=== PATIENT | female | born 1955 | race Caucasian/White ===

== ENCOUNTER → 2017-03-27 | Outpatient (CLI) | payer OTHER ==
[~2017-03-27] MED LIST: FLUO10CA13 PO; VARE0.5T PO
--- NOTE | 2017-03-27 14:58 | KCIC ---
INDICATION: Pain and swelling along with redness involving the thumb for 2 months. TECHNIQUE: 3 views of the right first digit including an AP view of the hand are submitted for review. No comparison is available. FINDINGS: There is soft tissue swelling involving the first digit. There may be mild erosive change in the tuft. No gross bone destruction or pathologic fracture is identified. There is no dislocation. There is no radiopaque foreign body. IMPRESSION: Questionable erosive change in the distal aspect of the distal phalanx of the first digit. Given provided history, osteomyelitis should be considered. Consider MRI or 3 phase bone scintigraphy if further workup is required. Electronically signed by: Marco Restrepo MD (03/27/2017 2:55 PM) [facility]
== END | disposition home or self-care (01) ==
LOC: KCIC 14:31
PROVIDERS: ATTEND Nurse Practitioner Family
DX: M79.644 Pain in right finger(s) (principal); M86.8X4 Other osteomyelitis, hand; M79.89 Other specified soft tissue disorders
CPT/HCPCS: 73140

== ENCOUNTER → 2017-04-06 | Outpatient (CLI) | payer OTHER ==
--- NOTE | 2017-04-06 11:26 | KCIC ---
MR of the right thumb with and without contrast HISTORY: Infection at the nailbed and distal thumb for 2 months. Mild soft tissue edema at the distal aspect of the first digit. Marrow edema with loss of fatty marrow within the terminal tuft and distal shaft of the distal phalanx of the first digit compatible with osteomyelitis in this clinical context. There is some loss of cortical definition compatible with some destruction as indicated also on the radiographs of March 27. There is mild soft tissue edema and fluid accumulation posterolateral to the first MP joint. No evidence of an organized or drainable fluid collection or abscess. No significant joint effusion. No evidence of tendon disruption or significant tendon sheath fluid. IMPRESSION: 1. Findings are compatible with osteomyelitis of the distal aspect of the distal first phalanx. 2. Mild disorganized soft tissue fluid adjacent to the first MP joint, of uncertain sterility. No evidence of an organized or drainable abscess. Electronically signed by: Tonny Joya MD (04/06/2017 11:23 AM) [facility]
== END | disposition home or self-care (01) ==
LOC: KCIC MRI 07:43
PROVIDERS: ATTEND Nurse Practitioner Gerontology
DX: M86.8X4 Other osteomyelitis, hand (principal); L08.89 Other specified local infections of the skin and subcutaneous tissue
CPT/HCPCS: 73218

== ENCOUNTER 2017-04-17 10:11 | Observation (INO) | payer OTHER ==
[2017-04-17] VITALS (11 sets, daily range): BP systolic 131–152; BP diastolic 71–81
[~2017-04-17] VITALS: Ht 165.1 cm; Wt 124.3 kg
[~2017-04-17 10:11] MED LIST changes: +BUPIVACAINE MPF 0.5% 30 ML VIAL. ONE; +CHOL10002 PO; +HYDR12.53 PO; +HYDROmorphone 2 MG/ML VIAL IV PRN; +IV RINGERS,LACTATED 1000ML 1,000 ML IV SCH; +LACT1CAP29 PO; +LIDOCAINE 1% 1 ML SYRINGE. ID PRN; +LIDOCAINE 1% 20 ML VIAL. ONE; +LIDOCAINE 2% PF Vial for OR 5 ML VIAL. ONE; +MORPHINE SULFATE 2 MG/ML DISP.SYRIN. IV PRN; +ONDANSETRON PF 4 MG/2 ML VIAL. IV PRN; +PROCHLORPERAZINE 10 MG/2 ML VIAL. IV PRN; +PROPOFOL 20 ML IV ONE; +fentaNYL PF VIAL 100 MCG/2 ML VIAL IV PRN; +fentaNYL PF VIAL 100 MCG/2 ML VIAL ONE
[2017-04-17] MEDS ORDERED: DEXAMETHASONE SOD PHOS 20 MG/5 ML VIAL. ONE (11:51)
[2017-04-17] MEDS ORDERED: ONDANSETRON PF 4 MG/2 ML VIAL. ONE (11:51)
[2017-04-17] MEDS ORDERED: SEVOFLURANE 16 TO 30 MINUTES. IH ONE (11:51)
[2017-04-17] MEDS ORDERED: fentaNYL PF VIAL 100 MCG/2 ML VIAL ONE ×2 (12:22→13:21)
[2017-04-17] MEDS: fentaNYL PF VIAL 100 MCG/2 ML VIAL IV PRN ×3 (12:25→13:23)
[2017-04-17] MEDS ORDERED: 0.9 % SODIUM CHLORIDE 10 ML DISP.SYRIN. IV PRN (12:30)
[2017-04-17] MEDS ORDERED: ONDANSETRON PF 4 MG/2 ML VIAL. IV PRN (12:30)
[2017-04-17] MEDS ORDERED: BISACODYL 10 MG SUPP.RECT. PR PRN (12:30)
[2017-04-17] MEDS ORDERED: MAGNESIUM HYDROXIDE 2,400 MG/30 ML ORAL.SUSP. PO PRN (12:30)
[2017-04-17] MEDS ORDERED: PROCHLORPERAZINE 10 MG/2 ML VIAL. IV PRN (12:30)
[2017-04-17] MEDS ORDERED: MORPHINE SULFATE 2 MG/ML DISP.SYRIN. IV PRN (12:30)
[2017-04-17] MEDS ORDERED: ZOLPIDEM 5 MG TABLET. PO PRN (12:30)
--- NOTE | 2017-04-17 12:30 | PDOC ---
BRIEF OPERATIVE NOTE Date: Apr 17, 2017 Pre-Op Diagnosis Possible R thumb osteo Post-Op Diagnosis same Procedure Performed Bone biopsy, I and D Surgeon Ever Helmet Coverer none Anesthesia Type: General Blood Loss 5ml Specimens Obtained swabs and bone for culture Findings no gross purulence Complications none STAN WESTON II, MD Apr 17, 2017 12:30
--- NOTE | 2017-04-17 12:52 | OP ---
DATE OF SURGERY: 04/17/2017 SURGEON: Shahid Weston M.D. WATER TRAINER: None. PREOPERATIVE DIAGNOSIS: Possible right thumb osteomyelitis. POSTOPERATIVE DIAGNOSIS: Possible right thumb osteomyelitis. PROCEDURES PERFORMED: 1. Bone biopsy, right distal phalanx of thumb. 2. Irrigation and debridement of right thumb. COMPLICATIONS: None. ESTIMATED BLOOD LOSS: 5 mL. TOURNIQUET TIME: 11 minutes. SPECIMENS: 1. Tissue cultures, subcutaneous tissues were obtained with swabs. 2. Rongeur was used to obtain deep tissue as well, which was sent off for culture. ANESTHESIA: General. REASON FOR PROCEDURE: The patient is a very pleasant 61-year-old female who had redness and swelling develop at her thumb that did respond to antibiotics over the past couple of weeks. An MRI had been obtained by an outside provider, which showed changes in the bone concerning with osteomyelitis. Given her overall clinical course and clinical presentation, I had a discussion of the risks, benefits and alternatives of the above procedure with her and she elected to proceed. For full further details, please see the outpatient consult note. DESCRIPTION OF PROCEDURE: The patient was greeted in the preoperative area by myself. Correct extremity was marked and verified. She was taken to the operative suite. Antibiotics were held. Once in the OR, she was transferred gently supine on the OR table and secured to the bed with all pressure points padded. She underwent successful induction of general anesthetic with an LMA. We applied a nonsterile tourniquet to her right upper arm and then proceeded to prep and drape the right upper extremity in our usual sterile fashion and conducted our standard preoperative timeout. The tourniquet was then insufflated to 250 mmHg and left in place for 11 minutes. I then made approximately a 1 cm incision over her radial side of her thumb and corresponding to the areas of change on the MRI. I used the hemostat to bluntly dissect down to the bone. I then took my culture swabs of the subcutaneous tissue and area adjacent to bone. I then used a rongeur to bite small piece of bone and periosteum to sent off for culture. Specimens were delivered from the operative field. We then irrigated out this incision with approximately 800 mL of sterile normal saline. I then closed skin with a single simple interrupted 3-0 nylon. She tolerated this procedure well. A Xeroform followed by sterile gauze, sterile cast padding and a sterile Benedict wrap were then applied to her right hand and thumb as well as wrist. She was awakened from anesthesia and transferred gently supine to the recovery room cart and taken to PACU in a stable and extubated condition. Postop plan is for activity as tolerated in the soft bulky splint at her thumb. We will admit her for observation status. I will ask Infectious Disease to come by to evaluate her as well. There were no changes around her paronychial region or eponychial region. Therefore, I did not feel that these needed surgical irrigation and debridement. The only changes around this area were faint erythema, which did look better today compared to when I had seen her in my clinic last week. This procedure was conducted under loupe magnification. SHAHID WESTON MD DR: JAMIE/david JOB#: [id number] / [id number] JEROMY
[2017-04-17] MEDS: PIPERACILLIN/TAZOBACTAM 3.375 GM in IV NORMAL SALINE 50ML 50 ML IV SCH ×3 (13:00→23:51)
[2017-04-17] MEDS: oxyCODONE IR 5 MG TABLET PO PRN ×3 (15:15→23:51)
[2017-04-17] MEDS: SENNOSIDES/DOCUSATE 8.6/50MG TABLET. PO SCH (20:08)
--- NOTE | 2017-04-18 01:01 | ACF ---
Admission Forms Criteria OSTEOMYELITIS Clinical Indications for Admission to Inpatient Care (Place 'X' for any and all applicable criteria) Admission is indicated by 1 or more of the following (1)(2)(3)(4)(5)(6): [ ] I. Significant systemic illness indicated by 2 or more of the following: [ ]a) Core (eg rectal) temperature greater or equal [id number](37.8C) in an adult [ ]b) Oral temperature[A] greater than or equal to 99.3 degrees F ( 37.4 degrees C) in an adult [ ]c) Heart rate greater than 90 beats per minute [ ]d) Respiratory rate greater than 20 breaths per minute or PaCO2 less than 32 mm Hg (4.3 kPa) [ ]e) White blood cell count > 12,000/mm3 (12 x109/L) or < 4000/mm3 ( 4 x109/L) or > 10% band cells [ ] II. Hemodynamic instability [ ] III. Severe pain requiring acute inpatient management [ ] IV. Bacteremia [ ] V. Altered Mental status that is severe or persistent [ ] . Limb-threatening infection [ ] VII. Suspected necrotizing soft tissue infection (e.g., gas in tissue) [ X] VIII.Surgical intervention required (e.g., bone or soft tissue debridement , removal of foreign body, or revascularization procedure) not performable in outpatient or emergency department level of care(7) [ ] IX. Appropriate monitoring and therapy (IV antibiotics) cannot be immediately arranged for home or outpatient setting [ ] X. Failure of outpatient treatment [ ] XI. High-risk comorbid condition present including 1 or more of the following: [ ]a) Poorly controlled diabetes (e.g., HbA1c greater than 10% (0.1)) [ ]b) Vascular insufficiency to affected area [ ]c) Cirrhosis [ ]d) Neutropenia [ ]e) Asplenia [ ]f) Immunosuppression (e.g., chronic systemic corticosteroid use) [ ]g) Symptomatic heart failure [ ] XII. Joint involvement (e.g., septic arthritis) suspected [ ] XIII.Vertebral osteomyelitis [ ] XIV. Skull-base osteomyelitis (e.g.,"malignant external otitis")[A](8)(9)(10 ) Extended stay beyond goal length of stay may be needed for(1)(3)(4)(5)(24)(25): [ ]a) Inadequate clinical response to antibiotics (e.g., continued fever, hypotension) [ ]b) Bacteremia [ ]c) Surgical intervention needed (e.g., beyond superficial debridement)(26) [ ]d) Vertebral osteomyelitis with spinal cord compression, abscess formation, or mechanical instability [ ]e) Antibiotic-resistant organism identified (e.g., methicillin-resistant Staphylococcal aureus) [ ]f) Severe concomitant cellulitis [ ]g) Acute metabolic disorder [ ]h) Unstable comorbidities (e.g., heart failure, renal insufficiency, immunosuppressed state)(28) [ ]i) Clinically significant malnutrition [ ]j) Acute renal failure The original [facility] [employer] content created by [facility] has been revised. The portions of the content which have been revised are identified through the use of italic text or in bold, and [facility] has neither reviewed nor approved the modified material. All other unmodified content is copyright [facility] 2016. Admission Criteria Met?: Yes LAMONT ARMSTRONG Apr 18, 2017 01:01
[2017-04-18 03:00] VITALS: BP 113/53
[2017-04-18] MEDS: PIPERACILLIN/TAZOBACTAM 3.375 GM in IV NORMAL SALINE 50ML 50 ML IV SCH ×4 (05:47→23:51)
[2017-04-18] MEDS: oxyCODONE IR 5 MG TABLET PO PRN ×4 (05:51→23:51)
[2017-04-18 07:15] VITALS: BP 137/71
[2017-04-18] MEDS: SENNOSIDES/DOCUSATE 8.6/50MG TABLET. PO SCH ×2 (08:30→20:49)
--- NOTE | 2017-04-18 08:51 | PDOC ---
Infectious Disease Note ROS ROS GEN: Denies fevers, chills, sweats HEENT: Denies blurred vision, sore throat CV: Denies chest pain RESP: Denies shortness of air, cough GI: Denies n/v/d NEURO: Denies confusion, dizziness MSK: Denies weakness, joint pain/swelling Vital Sign Vital Signs Vital Signs Date Time Temp Pulse Resp B/P (MAP) Pulse Ox O2 Delivery O2 Flow Rate FiO2 04/18/17 07:15 98.6 68 18 137/71 (93) 96 Room Air 98.6 04/17/17 12:41 8.0 Physical Exam PHYSICAL EXAM GENERAL: NAD, Alert HEENT: PERRL, OC/OP NECK: Supple, no JVD, no LN LUNGS: Clear HEART: S1S2, no gallop, no murmur ABD: Soft, NT, no organomegaly, no rebound EXT: No edema, no cyanosis CNC MANUFACTURING ENGINEER: Alert, oriented x 3, no focal neurologic deficit SKIN: No rash IV: ok Labs Lab Laboratory Tests Test 04/17/17 13:05 Erythrocyte Sedimentation Rate 15 (0-25) C-Reactive Protein, Quantitative 10.1 mg/L (0-3.3) Objective Assessment Rt thumb osteomyelitis s/p I and D Plan Plan of Care vanc and zosyn check cultures picc supportive care CINDY ALEXANDER MD Apr 18, 2017 08:51
[2017-04-18] MEDS ORDERED: VANCOMYCIN PER PHARMACY MC PRN (09:00)
[2017-04-18] MEDS ORDERED: VANCOMYCIN 2 GM in IV NORMAL SALINE 500ML BAG 500 ML IV ONE (09:00)
[2017-04-18 10:07] LABS: BASO % 0 % (0-3); EOS % 0 % (0-3); HEMATOCRIT 36.5 % (36.0-47.0); HEMOGLOBIN 12.7 g/dL (12.0-15.5); LYMPH # 1.2 x10^3/uL (1.0-4.8); LYMPH % 13 % (24-48); MEAN CORPUSCULAR HEMOGLOBIN 32 pg (25-35); MEAN CORPUSCULAR HGB CONC 35 g/dL (31-37); MEAN CORPUSCULAR VOLUME 91 fL (79-100); MONO % 4 % (0-9); NEUT % 83 % (31-73); PLATELET COUNT 208 x10^3/uL (140-400); RED CELL DISTRIBUTION WIDTH 13.2 % (11.5-14.5); WHITE BLOOD COUNT 9.5 x10^3/uL (4.0-11.0)
[2017-04-18 10:23] LABS: ALBUMIN 3.3 g/dL (3.4-5.0); CALCIUM 8.9 mg/dL (8.5-10.1); CREATININE 0.7 mg/dL (0.6-1.0); GFR 85.6; TOTAL BILIRUBIN 0.4 mg/dL (0.2-1.0); TOTAL PROTEIN 6.6 g/dL (6.4-8.2)
[2017-04-18 11:00] VITALS: BP 133/80
[2017-04-18 11:02] LABS: PROTHROMBIN TIME PATIENT 12.9 SEC (11.7-14.0)
--- NOTE | 2017-04-18 12:56 | CONS ---
DATE OF CONSULTATION: 04/18/2017 REQUESTING PHYSICIAN: Shahid Curtis M.D. REASON FOR CONSULTATION: Right thumb osteomyelitis. HISTORY OF PRESENT ILLNESS: This is a 61-year-old female who had what sounds like there is nail bed or surrounding area infection started about 3 months ago. The patient was seen by her primary care and 2 rounds of antibiotics and a round of antifungal was given and eventual x-ray, which showed osteomyelitis lead to MRI, which showed osteomyelitis. Seen by Dr. Curtis and now she had I and D done yesterday and bone cultures were done. The patient denied any fever. Denied any nausea, vomiting, diarrhea, chest pain, shortness of breath, abdominal pain, urinary symptoms or bowel symptoms. PAST MEDICAL HISTORY: Positive for history of knee infection several years ago. She has had in the past. Otherwise, she is unremarkable. SOCIAL HISTORY: Negative for smoking, she quit in January. No alcohol use or drug use. ALLERGIES: ALLERGIC TO SULFA AND ACYCLOVIR. SULFA CAUSED LIP SWELLING. ACYCLOVIR CAUSED SOME REACTION THAT SHE DOES NOT EVEN REMEMBER. CURRENT MEDICATIONS: Reviewed. The patient is on Zosyn. REVIEW OF SYSTEMS: As per HPI. All other systems reviewed are negative. PHYSICAL EXAMINATION: GENERAL: On examination, alert, oriented female, not in any distress. VITAL SIGNS: Stable, afebrile. HEENT: NAD. NECK: Supple. No JVP. No lymphadenopathy. LUNGS: Clear. HEART: S1, S2, regular. ABDOMEN: Benign. EXTREMITIES: No edema or cyanosis. SKIN EXAMINATION: Unremarkable, except postsurgical dressing on the thumb, not open. NEUROLOGIC: The patient is neurologically intact. LABORATORY DATA: Sed rate is 15 and CRP is 10.1. No other lab is done. X-ray and MRI both reviewed. IMPRESSION: Osteomyelitis of the right thumb distal phalanx, status post incision and drainage. RECOMMENDATIONS: We will add vancomycin until the cultures are known and continue Zosyn. Once the cultures are known, we will adjust and scale down. Order PICC line and in detail discussion done with the patient and the family at the bedside with the process, side effects, complications and failure possibility. Thank you very much, Dr. Curtis, for giving me opportunity to participate in this patient's care. BERNARDA JOSEPH DO DR: Jammie JOB#: [id number] / [id number]
[2017-04-18 15:10] VITALS: BP 135/70
[2017-04-18] MEDS ORDERED: VANCOMYCIN 1.75 GM in IV NORMAL SALINE 500ML BAG 500 ML IV SCH (18:00)
[2017-04-18 19:00] VITALS: BP 120/58
[2017-04-18] MEDS: VANCOMYCIN 2 GM in IV NORMAL SALINE 500ML BAG 500 ML IV SCH (22:00)
[2017-04-18 23:00] VITALS: BP 136/70
[2017-04-19 03:00] VITALS: BP 130/68
[2017-04-19] MEDS: PIPERACILLIN/TAZOBACTAM 3.375 GM in IV NORMAL SALINE 50ML 50 ML IV SCH ×2 (06:36→14:46)
[2017-04-19 07:00] VITALS: BP 148/78
--- NOTE | 2017-04-19 08:45 | PDOC ---
Infectious Disease Note Subjective Subjective pt feeling fine, no complaints ROS ROS GEN: Denies fevers, chills, sweats HEENT: Denies blurred vision, sore throat CV: Denies chest pain RESP: Denies shortness of air, cough GI: Denies n/v/d NEURO: Denies confusion, dizziness MSK: Denies weakness, joint pain/swelling Vital Sign Vital Signs Vital Signs Date Time Temp Pulse Resp B/P (MAP) Pulse Ox O2 Delivery O2 Flow Rate FiO2 04/19/17 07:45 Room Air 04/19/17 07:00 98.7 68 18 148/78 (101) 97 98.7 Physical Exam PHYSICAL EXAM GENERAL: NAD, Alert HEENT: PERRL, OC/OP NECK: Supple, no JVD, no LN LUNGS: Clear HEART: S1S2, no gallop, no murmur ABD: Soft, NT, no organomegaly, no rebound EXT: No edema, no cyanosis,, thumb incision good PLATE HANGER: Alert, oriented x 3, no focal neurologic deficit SKIN: No rash IV: ok Labs Lab Laboratory Tests Test 04/18/17 09:25 04/18/17 10:30 White Blood Count 9.5 x10^3/uL (4.0-11.0) Red Blood Count 4.00 x10^6/uL (3.50-5.40) Hemoglobin 12.7 g/dL (12.0-15.5) Hematocrit 36.5 % (36.0-47.0) Mean Corpuscular Volume 91 fL (79-100) Mean Corpuscular Hemoglobin 32 pg (25-35) Mean Corpuscular Hemoglobin Concent 35 g/dL (31-37) Red Cell Distribution Width 13.2 % (11.5-14.5) Platelet Count 208 x10^3/uL (140-400) Neutrophils (%) (Auto) 83 % (31-73) Lymphocytes (%) (Auto) 13 % (24-48) Monocytes (%) (Auto) 4 % (0-9) Eosinophils (%) (Auto) 0 % (0-3) Basophils (%) (Auto) 0 % (0-3) Neutrophils # (Auto) 7.9 x10^3uL (1.8-7.7) Lymphocytes # (Auto) 1.2 x10^3/uL (1.0-4.8) Monocytes # (Auto) 0.4 x10^3/uL (0.0-1.1) Eosinophils # (Auto) 0.0 x10^3/uL (0.0-0.7) Basophils # (Auto) 0.0 x10^3/uL (0.0-0.2) Sodium Level 140 mmol/L (136-145) Potassium Level 4.0 mmol/L (3.5-5.1) Chloride Level 103 mmol/L (98-107) Carbon Dioxide Level 29 mmol/L (21-32) Anion Gap 8 (6-14) Blood Urea Nitrogen 13 mg/dL (7-20) Creatinine 0.7 mg/dL (0.6-1.0) Estimated GFR (Cockcroft-Gault) 85.6 BUN/Creatinine Ratio 19 (6-20) Glucose Level 210 mg/dL (70-99) Calcium Level 8.9 mg/dL (8.5-10.1) Total Bilirubin 0.4 mg/dL (0.2-1.0) Aspartate Amino Transf (AST/SGOT) 14 U/L (15-37) Alanine Aminotransferase (ALT/SGPT) 36 U/L (14-59) Alkaline Phosphatase 94 U/L (46-116) Total Protein 6.6 g/dL (6.4-8.2) Albumin 3.3 g/dL (3.4-5.0) Albumin/Globulin Ratio 1.0 (1.0-1.7) Prothrombin Time 12.9 SEC (11.7-14.0) Prothromb Time International Ratio 1.0 (0.8-1.1) Micro culture neg so far Objective Assessment Rt thumb osteomyelitis s/p I and D Plan Plan of Care d/c ok on invanz, will follow culture, pt instructed to call my office for leonel and check on cultures supportive care f/u with me in 7-10 days d/w CINDY Klein MD Apr 19, 2017 08:45
--- NOTE | 2017-04-19 08:49 | DISCH ---
DISCHARGE INSTRUCTIONS Condition on Discharge Condition on Discharge: Stable Activity After Discharge Activity Instructions for Disc: Activity as tolerated Bathing Instructions: Shower-keep dressing dry Weight Bearing Status after Di: As tolerated Diet after Discharge Diet after Discharge: Regular Wound Incision Care Wound/Incision Care: Ice to area for comfort, Keep wound/cast CDI, Change dressing Community/Resources/Services Services at Discharge: Infusion Therapy Contacting the DRFam after DC Call your doctor for: Concerns you may have Follow-Up Follow up with: Ever in 2 wks Treatment/Equipment after DC Infusion Equipment, home use: PICC Line STAN WESTON II, MD Apr 19, 2017 08:49
--- NOTE | 2017-04-19 08:51 | PDOC ---
ORTHO PROGRESS NOTES Subjective Shan tells me that her pain is controlled. She did have flushing, palpitations , with the vancomycin infusion. This resolved after the infusion was stopped. Vitals Vital Signs Date Time Temp Pulse Resp B/P (MAP) Pulse Ox O2 Delivery O2 Flow Rate FiO2 04/19/17 07:45 Room Air 04/19/17 07:00 98.7 68 18 148/78 (101) 97 98.7 Labs Laboratory Tests Test 04/17/17 13:05 04/18/17 09:25 04/18/17 10:30 Erythrocyte Sedimentation Rate 15 (0-25) C-Reactive Protein, Quantitative 10.1 mg/L (0-3.3) White Blood Count 9.5 x10^3/uL (4.0-11.0) Red Blood Count 4.00 x10^6/uL (3.50-5.40) Hemoglobin 12.7 g/dL (12.0-15.5) Hematocrit 36.5 % (36.0-47.0) Mean Corpuscular Volume 91 fL (79-100) Mean Corpuscular Hemoglobin 32 pg (25-35) Mean Corpuscular Hemoglobin Concent 35 g/dL (31-37) Red Cell Distribution Width 13.2 % (11.5-14.5) Platelet Count 208 x10^3/uL (140-400) Neutrophils (%) (Auto) 83 % (31-73) Lymphocytes (%) (Auto) 13 % (24-48) Monocytes (%) (Auto) 4 % (0-9) Eosinophils (%) (Auto) 0 % (0-3) Basophils (%) (Auto) 0 % (0-3) Neutrophils # (Auto) 7.9 x10^3uL (1.8-7.7) Lymphocytes # (Auto) 1.2 x10^3/uL (1.0-4.8) Monocytes # (Auto) 0.4 x10^3/uL (0.0-1.1) Eosinophils # (Auto) 0.0 x10^3/uL (0.0-0.7) Basophils # (Auto) 0.0 x10^3/uL (0.0-0.2) Sodium Level 140 mmol/L (136-145) Potassium Level 4.0 mmol/L (3.5-5.1) Chloride Level 103 mmol/L (98-107) Carbon Dioxide Level 29 mmol/L (21-32) Anion Gap 8 (6-14) Blood Urea Nitrogen 13 mg/dL (7-20) Creatinine 0.7 mg/dL (0.6-1.0) Estimated GFR (Cockcroft-Gault) 85.6 BUN/Creatinine Ratio 19 (6-20) Glucose Level 210 mg/dL (70-99) Calcium Level 8.9 mg/dL (8.5-10.1) Total Bilirubin 0.4 mg/dL (0.2-1.0) Aspartate Amino Transf (AST/SGOT) 14 U/L (15-37) Alanine Aminotransferase (ALT/SGPT) 36 U/L (14-59) Alkaline Phosphatase 94 U/L (46-116) Total Protein 6.6 g/dL (6.4-8.2) Albumin 3.3 g/dL (3.4-5.0) Albumin/Globulin Ratio 1.0 (1.0-1.7) Prothrombin Time 12.9 SEC (11.7-14.0) Prothromb Time International Ratio 1.0 (0.8-1.1) Laboratory Tests Test 04/18/17 09:25 04/18/17 10:30 White Blood Count 9.5 x10^3/uL (4.0-11.0) Red Blood Count 4.00 x10^6/uL (3.50-5.40) Hemoglobin 12.7 g/dL (12.0-15.5) Hematocrit 36.5 % (36.0-47.0) Mean Corpuscular Volume 91 fL (79-100) Mean Corpuscular Hemoglobin 32 pg (25-35) Mean Corpuscular Hemoglobin Concent 35 g/dL (31-37) Red Cell Distribution Width 13.2 % (11.5-14.5) Platelet Count 208 x10^3/uL (140-400) Neutrophils (%) (Auto) 83 % (31-73) Lymphocytes (%) (Auto) 13 % (24-48) Monocytes (%) (Auto) 4 % (0-9) Eosinophils (%) (Auto) 0 % (0-3) Basophils (%) (Auto) 0 % (0-3) Neutrophils # (Auto) 7.9 x10^3uL (1.8-7.7) Lymphocytes # (Auto) 1.2 x10^3/uL (1.0-4.8) Monocytes # (Auto) 0.4 x10^3/uL (0.0-1.1) Eosinophils # (Auto) 0.0 x10^3/uL (0.0-0.7) Basophils # (Auto) 0.0 x10^3/uL (0.0-0.2) Sodium Level 140 mmol/L (136-145) Potassium Level 4.0 mmol/L (3.5-5.1) Chloride Level 103 mmol/L (98-107) Carbon Dioxide Level 29 mmol/L (21-32) Anion Gap 8 (6-14) Blood Urea Nitrogen 13 mg/dL (7-20) Creatinine 0.7 mg/dL (0.6-1.0) Estimated GFR (Cockcroft-Gault) 85.6 BUN/Creatinine Ratio 19 (6-20) Glucose Level 210 mg/dL (70-99) Calcium Level 8.9 mg/dL (8.5-10.1) Total Bilirubin 0.4 mg/dL (0.2-1.0) Aspartate Amino Transf (AST/SGOT) 14 U/L (15-37) Alanine Aminotransferase (ALT/SGPT) 36 U/L (14-59) Alkaline Phosphatase 94 U/L (46-116) Total Protein 6.6 g/dL (6.4-8.2) Albumin 3.3 g/dL (3.4-5.0) Albumin/Globulin Ratio 1.0 (1.0-1.7) Prothrombin Time 12.9 SEC (11.7-14.0) Prothromb Time International Ratio 1.0 (0.8-1.1) Notes No growth on cultures yet She is awake and alert and sitting in bed. Her incision is clean and dry. She still has some erythema, although it is better, over her right thumb distally. Assessment and Plan I did discuss her care with Dr. Larios. We will send her home on IV antibiotics for osteomyelitis. Worrisome signs and symptoms were discussed with her. She will follow up with me in 2 weeks STAN WESTON II, MD Apr 19, 2017 08:51
--- NOTE | 2017-04-19 08:53 | PDOC3 ---
Discharge Summary Visit Information Date of Admission: Apr 17, 2017 Date of Discharge: Apr 19, 2017 Admitting Diagnosis: osteomyelitis right thumb Brief Hospital Course Allergies Allergies Coded Allergies Type Severity Reaction Last Updated Verified acyclovir Allergy Intermediate Swelling 04/12/17 Yes sulfamethoxazole Allergy Intermediate 06/11/15 Yes trimethoprim Allergy Intermediate 06/11/15 Yes Vital Signs Vital Signs Date Time Temp Pulse Resp B/P (MAP) Pulse Ox O2 Delivery O2 Flow Rate FiO2 04/19/17 07:45 Room Air 04/19/17 07:00 98.7 68 18 148/78 (101) 97 98.7 Lab Results Laboratory Tests Test 04/17/17 13:05 04/18/17 09:25 04/18/17 10:30 Erythrocyte Sedimentation Rate 15 (0-25) C-Reactive Protein, Quantitative 10.1 mg/L (0-3.3) White Blood Count 9.5 x10^3/uL (4.0-11.0) Red Blood Count 4.00 x10^6/uL (3.50-5.40) Hemoglobin 12.7 g/dL (12.0-15.5) Hematocrit 36.5 % (36.0-47.0) Mean Corpuscular Volume 91 fL (79-100) Mean Corpuscular Hemoglobin 32 pg (25-35) Mean Corpuscular Hemoglobin Concent 35 g/dL (31-37) Red Cell Distribution Width 13.2 % (11.5-14.5) Platelet Count 208 x10^3/uL (140-400) Neutrophils (%) (Auto) 83 % (31-73) Lymphocytes (%) (Auto) 13 % (24-48) Monocytes (%) (Auto) 4 % (0-9) Eosinophils (%) (Auto) 0 % (0-3) Basophils (%) (Auto) 0 % (0-3) Neutrophils # (Auto) 7.9 x10^3uL (1.8-7.7) Lymphocytes # (Auto) 1.2 x10^3/uL (1.0-4.8) Monocytes # (Auto) 0.4 x10^3/uL (0.0-1.1) Eosinophils # (Auto) 0.0 x10^3/uL (0.0-0.7) Basophils # (Auto) 0.0 x10^3/uL (0.0-0.2) Sodium Level 140 mmol/L (136-145) Potassium Level 4.0 mmol/L (3.5-5.1) Chloride Level 103 mmol/L (98-107) Carbon Dioxide Level 29 mmol/L (21-32) Anion Gap 8 (6-14) Blood Urea Nitrogen 13 mg/dL (7-20) Creatinine 0.7 mg/dL (0.6-1.0) Estimated GFR (Cockcroft-Gault) 85.6 BUN/Creatinine Ratio 19 (6-20) Glucose Level 210 mg/dL (70-99) Calcium Level 8.9 mg/dL (8.5-10.1) Total Bilirubin 0.4 mg/dL (0.2-1.0) Aspartate Amino Transf (AST/SGOT) 14 U/L (15-37) Alanine Aminotransferase (ALT/SGPT) 36 U/L (14-59) Alkaline Phosphatase 94 U/L (46-116) Total Protein 6.6 g/dL (6.4-8.2) Albumin 3.3 g/dL (3.4-5.0) Albumin/Globulin Ratio 1.0 (1.0-1.7) Prothrombin Time 12.9 SEC (11.7-14.0) Prothromb Time International Ratio 1.0 (0.8-1.1) Laboratory Tests Test 04/18/17 09:25 04/18/17 10:30 White Blood Count 9.5 x10^3/uL (4.0-11.0) Red Blood Count 4.00 x10^6/uL (3.50-5.40) Hemoglobin 12.7 g/dL (12.0-15.5) Hematocrit 36.5 % (36.0-47.0) Mean Corpuscular Volume 91 fL (79-100) Mean Corpuscular Hemoglobin 32 pg (25-35) Mean Corpuscular Hemoglobin Concent 35 g/dL (31-37) Red Cell Distribution Width 13.2 % (11.5-14.5) Platelet Count 208 x10^3/uL (140-400) Neutrophils (%) (Auto) 83 % (31-73) Lymphocytes (%) (Auto) 13 % (24-48) Monocytes (%) (Auto) 4 % (0-9) Eosinophils (%) (Auto) 0 % (0-3) Basophils (%) (Auto) 0 % (0-3) Neutrophils # (Auto) 7.9 x10^3uL (1.8-7.7) Lymphocytes # (Auto) 1.2 x10^3/uL (1.0-4.8) Monocytes # (Auto) 0.4 x10^3/uL (0.0-1.1) Eosinophils # (Auto) 0.0 x10^3/uL (0.0-0.7) Basophils # (Auto) 0.0 x10^3/uL (0.0-0.2) Sodium Level 140 mmol/L (136-145) Potassium Level 4.0 mmol/L (3.5-5.1) Chloride Level 103 mmol/L (98-107) Carbon Dioxide Level 29 mmol/L (21-32) Anion Gap 8 (6-14) Blood Urea Nitrogen 13 mg/dL (7-20) Creatinine 0.7 mg/dL (0.6-1.0) Estimated GFR (Cockcroft-Gault) 85.6 BUN/Creatinine Ratio 19 (6-20) Glucose Level 210 mg/dL (70-99) Calcium Level 8.9 mg/dL (8.5-10.1) Total Bilirubin 0.4 mg/dL (0.2-1.0) Aspartate Amino Transf (AST/SGOT) 14 U/L (15-37) Alanine Aminotransferase (ALT/SGPT) 36 U/L (14-59) Alkaline Phosphatase 94 U/L (46-116) Total Protein 6.6 g/dL (6.4-8.2) Albumin 3.3 g/dL (3.4-5.0) Albumin/Globulin Ratio 1.0 (1.0-1.7) Prothrombin Time 12.9 SEC (11.7-14.0) Prothromb Time International Ratio 1.0 (0.8-1.1) Brief Hospital Course Ms. Hay is a 61 old female who presented to my outpatient orthopedic surgery clinic with concerns of a right thumb osteomyelitis. For details of this please see my outpatient consult. Clinical examination and imaging including MRI were consistent with this and because of this we had a discussion of the risks, benefits, and alternatives to an irrigation and debridement and bone biopsy and she elected to proceed. She tolerated surgery well carpal well from anesthesia and the PACU. She was taken up to the general medical floor for IV antibiotics and IV pain medicine. Infectious disease was following along with her care as well. She did have a reaction to vancomycin while in the hospital otherwise her hospital course was uneventful. She remained hemodynamically stable and afebrile. Normal bowel or bladder. Her pain was controlled on oral pain medicine. Discharge Information Condition at Discharge: Stable Follow Up: Weeks Disposition/Orders: D/C to Home Scheduled Cholecalciferol (Vitamin D3) (Vitamin D), 1,000 UNIT PO DAILY, (Reported) Fluoxetine Hcl (Prozac), 10 MG PO DAILY, (Reported) Hydrochlorothiazide (Hydrochlorothiazide Capsule ), 12.5 MG PO DAILY, ( Reported) Lactobacillus Combo No.10 (Probiotic), 1 EACH PO DAILY, (Reported) Discontinued Medications Varenicline Tartrate (Chantix), 0.5 MG PO DIRECTED, (Reported) Patient Instructions Patient Instructions She will receive IV infusion therapy for her ostial myelitis. I did discuss worsening signs and symptoms that should prompt for culture my office. She'll follow up with infectious disease as an outpatient. She will return to my clinic for follow-up in 2 weeks, sooner should problems arise. STAN WESTON II, MD Apr 19, 2017 08:53
[2017-04-19] MEDS: SENNOSIDES/DOCUSATE 8.6/50MG TABLET. PO SCH (09:00)
[2017-04-19] MEDS: VANCOMYCIN 2 GM in IV NORMAL SALINE 500ML BAG 500 ML IV SCH (10:00)
[2017-04-19] MEDS ORDERED: ERTAPENEM 1 GM in IV NORMAL SALINE 50ML 50 ML IV ONE (13:15)
--- NOTE | 2017-04-19 13:45 | DISCH ---
DISCHARGE WITH HOME HEALTH DISCHARGE INFORMATION: Discharge Date: Apr 19, 2017 Final Diagnosis: Right thumb distal phalanx osteomyelitis, acute Condition on Discharge: Stable HOME HEALTH: Face to Face: I certify this patient is under my care and that I, or a nurse practitioner or physician's [employer] assistant manager working with me, had a face to face encounter that meets the physician face to face encounter requirements with this patient on [Date]. Medical Condition(s): Other (acute right thumb distal phalanx osteomyelitis) Fpc For: IV Infusion Therapy FOLLOW-UP: Follow up with: Ever in 2 wks Follow Up With: Harriet CERTIFICATION STATEMENT: Certification Statement: Certification Statement: Based on the above finding, I certify that this patient is confined to the home and needs intermittent correction care, physical therapy and/or speech therapy, or continues to need occupational therapy.~ This patient is under my care, and I have initiated the establishment of the plan of care.~ This patient will be followed by myself or a community physician who will periodically review the plan of care. STAN WESTON II, MD Apr 19, 2017 13:45
[2017-04-19] MEDS: oxyCODONE IR 5 MG TABLET PO PRN (14:48)
--- NOTE | 2017-04-20 11:06 | CONS ---
DATE OF CONSULTATION: 04/18/2017 REQUESTING PHYSICIAN: Shahid Curtis M.D. REASON FOR CONSULTATION: Right thumb osteomyelitis. HISTORY OF PRESENT ILLNESS: This is a 61-year-old female who had what sounds like there is nail bed or surrounding area infection started about 3 months ago. The patient was seen by her primary care and 2 rounds of antibiotics and a round of antifungal was given and eventual x-ray, which showed osteomyelitis lead to MRI, which showed osteomyelitis. Seen by Dr. Curtis and now she had I and D done yesterday and bone cultures were done. The patient denied any fever. Denied any nausea, vomiting, diarrhea, chest pain, shortness of breath, abdominal pain, urinary symptoms or bowel symptoms. PAST MEDICAL HISTORY: Positive for history of knee infection several years ago. She has had in the past. Otherwise, she is unremarkable. SOCIAL HISTORY: Negative for smoking, she quit in January. No alcohol use or drug use. ALLERGIES: ALLERGIC TO SULFA AND ACYCLOVIR. SULFA CAUSED LIP SWELLING. ACYCLOVIR CAUSED SOME REACTION THAT SHE DOES NOT EVEN REMEMBER. CURRENT MEDICATIONS: Reviewed. The patient is on Zosyn. REVIEW OF SYSTEMS: As per HPI. All other systems reviewed are negative. PHYSICAL EXAMINATION: GENERAL: On examination, alert, oriented female, not in any distress. VITAL SIGNS: Stable, afebrile. HEENT: NAD. NECK: Supple. No JVP. No lymphadenopathy. LUNGS: Clear. HEART: S1, S2, regular. ABDOMEN: Benign. EXTREMITIES: No edema or cyanosis. SKIN EXAMINATION: Unremarkable, except postsurgical dressing on the thumb, not open. NEUROLOGIC: The patient is neurologically intact. LABORATORY DATA: Sed rate is 15 and CRP is 10.1. No other lab is done. X-ray and MRI both reviewed. IMPRESSION: Osteomyelitis of the right thumb distal phalanx, status post incision and drainage. RECOMMENDATIONS: We will add vancomycin until the cultures are known and continue Zosyn. Once the cultures are known, we will adjust and scale down. Order PICC line and in detail discussion done with the patient and the family at the bedside with the process, side effects, complications and failure possibility. Thank you very much, Dr. Curtis, for giving me opportunity to participate in this patient's care. CINDY ALEXANDER MD DR: DAVIS/david JOB#: [id number] / [id number]
== END 2017-04-19 15:00 | disposition home or self-care (01) ==
LOC: SURG 10:11 → 4 NORTH 12:30
PROVIDERS: ADMIT Orthopaedic Surgery Sports Medicine; ATTEND Orthopaedic Surgery Sports Medicine
DX: M86.8X4 Other osteomyelitis, hand (principal)
CPT/HCPCS: 20240; 36415; 80053; 85025; 85610; 85651; 86140; 87071; 87075; 87205; 96365; 96367; 96375; 96376; G0378; G0379; J0690; J1100; J1335; J2270; J2405; J2543; J2704; J3010; J3370; J7040; J3490; J2001

== ENCOUNTER → 2017-07-17 | Outpatient (CLI) | payer OTHER ==
[2017-05-24 08:29] VITALS: BP 154/79
[~2017-07-17] MED LIST changes: -BUPIVACAINE MPF 0.5% 30 ML VIAL. ONE; +GADOBUTROL 10 MMOL/10 ML VIAL IV ONE; -HYDROmorphone 2 MG/ML VIAL IV PRN; +ISAV186C PO; -IV RINGERS,LACTATED 1000ML 1,000 ML IV SCH; -LIDOCAINE 1% 1 ML SYRINGE. ID PRN; -LIDOCAINE 1% 20 ML VIAL. ONE; -LIDOCAINE 2% PF Vial for OR 5 ML VIAL. ONE; -MORPHINE SULFATE 2 MG/ML DISP.SYRIN. IV PRN; -ONDANSETRON PF 4 MG/2 ML VIAL. IV PRN; -PROCHLORPERAZINE 10 MG/2 ML VIAL. IV PRN; -PROPOFOL 20 ML IV ONE; -fentaNYL PF VIAL 100 MCG/2 ML VIAL IV PRN; -fentaNYL PF VIAL 100 MCG/2 ML VIAL ONE
--- NOTE | 2017-07-17 10:59 | KCIC ---
MR of the right thumb with and without contrast HISTORY: Nonhealing wound at the distal tip of the right thumb since January. TECHNIQUE: Routine pre and postcontrast imaging. FINDINGS: Bone marrow edema within the shaft and head of the distal first phalanx. At the distal head and tuft of the first phalanx, there is corresponding enhancement and loss of fatty marrow signal. There is also cortical ill-definition of the tuft. In this context, these findings are compatible with osteomyelitis. No abnormal soft tissue fluid collection or drainable abscess. There is no advanced soft tissue edema or enhancement at the thumb. The flexor and extensor tendons appear intact. No significant joint effusion. IMPRESSION: 1. Findings are compatible with osteomyelitis at the distal aspect of the distal first phalanx. 2. No evidence of drainable abscess. Electronically signed by: Tonny Joya MD (07/17/2017 10:55 AM) [facility]
== END | disposition home or self-care (01) ==
LOC: KCIC MRI 08:07
PROVIDERS: ATTEND Internal Medicine Infectious Disease
DX: S61.001A Unspecified open wound of right thumb without damage to nail, initial encounter (principal); M86.8X5 Other osteomyelitis, thigh; X58.XXXA Exposure to other specified factors, initial encounter; Y93.89 Activity, other specified; Y92.89 Other specified places as the place of occurrence of the external cause; Y99.8 Other external cause status
CPT/HCPCS: 73220; A9585

== ENCOUNTER → 2017-07-23 | Outpatient (CLI) | payer OTHER ==
[2017-05-24 08:29] VITALS: BP 154/79
[~2017-07-23] MED LIST changes: +DOCU-109 PO; -GADOBUTROL 10 MMOL/10 ML VIAL IV ONE; +HYDR-971 PO; +IBUP-1227 PO; +LEVO500T59 PO; +LINE600T PO; +ONDA4TAB10 SL
--- NOTE | 2017-07-23 15:41 | KCIC ---
DATE: 07/23/2017 EXAM: MAMMO MAYCO SCREENING BILATERAL HISTORY: Routine screening COMPARISON: 07/20/2016 This study was interpreted with the benefit of Computerized Aided Detection (CAD). The breast parenchyma is heterogeneously dense, which could reduce sensitivity of mammography. Breast parenchyma level C. FINDINGS: 2-D and 3-D tomosynthesis imaging was performed in CC and MLO projections. No new or enlarging breast densities are seen. An old breast biopsy marker is again noted at the 12:00 location in the left breast. There are scattered microcalcifications in both breasts. No suspicious microcalcifications have developed. IMPRESSION: Stable mammograms without evidence of malignancy. BI-RADS CATEGORY: 2 BENIGN FINDING(S) RECOMMENDED FOLLOW-UP: 12M 12 MONTH FOLLOW-UP PQRS compliance statement: Patient information was entered into a reminder system with a target due date for the next mammogram. Mammography is a sensitive method for finding small breast cancers, but it does not detect them all and is not a substitute for careful clinical examination. A negative mammogram does not negate a clinically suspicious finding and should not result in delay in biopsying a clinically suspicious abnormality. "Our facility is accredited by the [employer] Mammography Program."
== END | disposition home or self-care (01) ==
LOC: KCIC MAMMO 13:02
PROVIDERS: ATTEND Nurse Practitioner Family
DX: Z12.31 Encounter for screening mammogram for malignant neoplasm of breast (principal)
CPT/HCPCS: 77063; G0202; 77067

== ENCOUNTER 2017-07-25 06:00 | Day surgery (SDC) | payer OTHER ==
[2017-07-25] MEDS: IV RINGERS,LACTATED 1000ML 1,000 ML IV (06:56)
[2017-07-25] MEDS ORDERED: HYDROmorphone 2 MG/ML VIAL IV (07:00)
[2017-07-25] MEDS ORDERED: ceFAZolin 2GM PREMIX 2 GM/50 ML BAG IV (07:00)
[2017-07-25] MEDS ORDERED: ONDANSETRON PF 4 MG/2 ML VIAL. IV (07:00)
[2017-07-25] MEDS ORDERED: fentaNYL PF VIAL 100 MCG/2 ML VIAL IV ×2 (07:00)
[2017-07-25] MEDS ORDERED: PROCHLORPERAZINE 10 MG/2 ML VIAL. IV (07:00)
[2017-07-25] MEDS ORDERED: LIDOCAINE 1% PF 2 ML VIAL. ID (07:00)
[2017-07-25] MEDS ORDERED: MIDAZOLAM HCL/PF 2 MG/2 ML VIAL. (07:42)
[2017-07-25] MEDS ORDERED: fentaNYL PF VIAL 100 MCG/2 ML VIAL (07:42)
[2017-07-25] MEDS ORDERED: DEXAMETHASONE SOD PHOS 20 MG/5 ML VIAL. (07:44)
[2017-07-25] MEDS ORDERED: ONDANSETRON PF 4 MG/2 ML VIAL. (07:44)
[2017-07-25] MEDS ORDERED: SEVOFLURANE 31 TO 60 MINUTES. IH (07:44)
[2017-07-25] MEDS ORDERED: diphenhydrAMINE 50 MG/ML VIAL (07:44)
[2017-07-25] MEDS ORDERED: KETOROLAC 30 MG/ML INJ FOR OR. INJ (07:44)
[2017-07-25] MEDS ORDERED: PROPOFOL 20 ML IV (07:44)
[2017-07-25] MEDS: BUPIVAC MPF-EPI 0.5%-1:200000 30 ML VIAL. (08:06)
[2017-07-25] MEDS: LIDOCAINE 1% 20 ML VIAL. (08:10)
[2017-07-25] MEDS: MORPHINE SULFATE 2 MG/ML DISP.SYRIN. IV (09:13)
[2017-07-25] MEDS: HYDROcodone/APAP 5/325MG 1 TAB TABLET PO (09:27)
== END 2017-07-25 10:04 | disposition home or self-care (01) ==
LOC: SURG 06:00
DX: M86.8X4 Other osteomyelitis, hand (principal); I10 Essential (primary) hypertension; F32.9 Major depressive disorder, single episode, unspecified; F10.99 Alcohol use, unspecified with unspecified alcohol-induced disorder; F17.210 Nicotine dependence, cigarettes, uncomplicated; Z88.2 Allergy status to sulfonamides; Z88.1 Allergy status to other antibiotic agents
CPT/HCPCS: 11044; 87071; 87075; 87102; 87116; 87205; J0690; J1100; J1200; J1885; J2250; J2270; J2405; J2704; J3010; J3490

== ENCOUNTER → 2018-01-15 | Outpatient (CLI) | payer OTHER | END | disposition home or self-care (01) | LOC: KCIC US 13:06 | DX: I70.203 Unspecified atherosclerosis of native arteries of extremities, bilateral legs (principal) | CPT/HCPCS: 93922; 93925; 93970 ==

== ENCOUNTER → 2018-06-25 | Outpatient (CLI) | payer OTHER ==
[2017-07-25 10:00] VITALS: BP 165/82
--- NOTE | 2018-06-25 13:40 | RAD ---
DATE: 06/25/2018 EXAM: DIGITAL DIAGNOSTIC BILATERAL, BREAST RIGHT HISTORY: Palpable abnormality at the right lateral breast COMPARISON: 05/15/2015, 07/20/2016, and 07/23/2017 screen mammographic exams This study was interpreted with the benefit of Computerized Aided Detection (CAD). Breast Density: HETERO The breast parenchyma is heterogenously dense, which could reduce sensitivity of mammography. Breast parenchyma level C. FINDINGS: Minimal benign calcification is present. No masses or distortion. No suspicious calcification clusters. Ultrasound imaging of the right outer breast was also performed. No masses, cysts, or other suspicious findings at the outer breast from the 8 o'clock to 10:00 region.. No palpable abnormality upon physical exam by myself. IMPRESSION: Normal. Clinical management of palpable abnormality is recommended as there are no imaging findings. No suspicious physical exam finding upon palpation by myself. BI-RADS CATEGORY: 2 BENIGN FINDING(S) RECOMMENDED FOLLOW-UP: 12M 12 MONTH FOLLOW-UP PQRS compliance statement: Patient information was entered into a reminder system with a target due date in 1 year for the next mammogram. Mammography is a sensitive method for finding small breast cancers, but it does not detect them all and is not a substitute for careful clinical examination. A negative mammogram does not negate a clinically suspicious finding and should not result in delay in biopsying a clinically suspicious abnormality. "Our facility is accredited by the [employer] Mammography Program."
== END | disposition home or self-care (01) ==
LOC: MAMMO 09:43
PROVIDERS: ATTEND Nurse Practitioner
DX: R92.8 Other abnormal and inconclusive findings on diagnostic imaging of breast (principal)
CPT/HCPCS: 76641; 77066

== ENCOUNTER 2018-11-25 18:23 | Inpatient (IN) | payer OTHER ==
[~2018-11-25] VITALS: Ht 167.6 cm; Wt 121.6 kg
[~2018-11-25 18:23] MED LIST changes: +HYDR-3164 PO; -HYDR-971 PO; -HYDR12.53 PO; +HYDR12.575 PO
[2018-11-25] MEDS ORDERED: IV NORMAL SALINE 1000ML BAG 1,000 ML IV SCH (20:21)
--- NOTE | 2018-11-25 20:28 | PHYS DOC ---
Past Medical History Past Surgical History: Additional Past Surgical Histo: RIGHT THUMB, LOW BACK SURG, Alcohol Use: Occasionally Adult General Chief Complaint Chief Complaint: ABDOMINAL PAIN HPI HPI Patient is a 63-year-old female who presents with complaint of acute abdominal pain that started this past Sunday evening and has intensified since. Patient states that initially she thought she was constipated. She states that she had taken a Dulcolax without any improvement. She states that Sunday symptoms had worsened and again Sunday even worse. She was seen by her primary care doctor today who had ordered an outpatient CT scan and patient presents with imaging report from diagnostic radiology demonstrating a dilated appendix consistent with appendicitis. Patient rates her pain currently at a 9 out of 10. She states that she has had some nausea. Pain is worsened with movement and coughing. She states that her last meal was yesterday morning. She states that her last fluid intake was oral contrast at about 4:30 PM. Review of Systems Review of Systems Constitutional: Denies fever or chills [] Respiratory: Denies cough or shortness of breath [] Cardiovascular: No additional information not addressed in HPI [] GI: Positive abdominal pain with nausea. Denies diarrhea [] Integument: Denies rash or skin lesions [] Neurologic: Denies headache, focal weakness or sensory changes [] All other systems were reviewed and found to be within normal limits, except as documented in this note. Current Medications Current Medications Current Medications Medications (Trade) Dose Ordered Sig/Carol Start Time Stop Time Status Last Admin Dose Admin Hydromorphone HCl (Dilaudid) 0.5 mg PRN Q15MIN PRN 11/25/18 20:30 11/26/18 20:29 11/25/18 20:37 0.5 MG Ondansetron HCl (Zofran) 4 mg 1X ONCE 11/25/18 20:30 11/25/18 20:31 DC 11/25/18 20:36 4 MG Piperacillin Sod/ Tazobactam Sod 4.5 gm/Sodium Chloride 100 ml @ 200 mls/hr 1X ONCE 11/25/18 20:30 11/25/18 20:59 DC 11/25/18 20:55 200 MLS/HR Sodium Chloride 1,000 ml @ 100 mls/hr Q10H 11/25/18 20:21 11/26/18 06:20 DC 11/25/18 20:35 100 MLS/HR Allergies Allergies Allergies Coded Allergies Type Severity Reaction Last Updated Verified acyclovir Allergy Intermediate Swelling 07/25/17 Yes sulfamethoxazole Allergy Intermediate 07/25/17 Yes trimethoprim Allergy Intermediate 07/25/17 Yes Physical Exam Physical Exam Constitutional: Well developed, well nourished, no acute distress, non-toxic appearance. [] HENT: Normocephalic, atraumatic, bilateral external ears normal, oropharynx moist, no oral exudates, nose normal. [] Eyes: PERRLA, EOMI, conjunctiva normal, no discharge. [] Neck: Normal range of motion, no tenderness, supple, no stridor. [] Cardiovascular: Regular rate and rhythm[] Lungs & Thorax: Bilateral breath sounds clear to auscultation [] Abdomen: Bowel sounds diminished, soft, with moderate McBurney's point tenderness. Positive rebound tenderness. [] Skin: Warm, dry, no erythema, no rash. [] Extremities: No tenderness, no cyanosis, no clubbing, ROM intact, no edema. [] Neurologic: Alert and oriented X 3, no focal deficits noted. [] Current Patient Data Vital Signs Vital Signs Date Time Temp Pulse Resp B/P (MAP) Pulse Ox O2 Delivery O2 Flow Rate FiO2 11/25/18 19:00 98.3 97 20 129/92 (104) 95 Room Air 98.3 Lab Values Laboratory Tests Test 11/25/18 20:28 White Blood Count 7.7 x10^3/uL (4.0-11.0) Red Blood Count 4.45 x10^6/uL (3.50-5.40) Hemoglobin 13.5 g/dL (12.0-15.5) Hematocrit 40.4 % (36.0-47.0) Mean Corpuscular Volume 91 fL (79-100) Mean Corpuscular Hemoglobin 30 pg (25-35) Mean Corpuscular Hemoglobin Concent 33 g/dL (31-37) Red Cell Distribution Width 13.7 % (11.5-14.5) Platelet Count 198 x10^3/uL (140-400) Neutrophils (%) (Auto) 66 % (31-73) Lymphocytes (%) (Auto) 25 % (24-48) Monocytes (%) (Auto) 7 % (0-9) Eosinophils (%) (Auto) 2 % (0-3) Basophils (%) (Auto) 1 % (0-3) Neutrophils # (Auto) 5.1 x10^3uL (1.8-7.7) Lymphocytes # (Auto) 1.9 x10^3/uL (1.0-4.8) Monocytes # (Auto) 0.5 x10^3/uL (0.0-1.1) Eosinophils # (Auto) 0.1 x10^3/uL (0.0-0.7) Basophils # (Auto) 0.0 x10^3/uL (0.0-0.2) Urine Collection Type Unknown Urine Color Yellow Urine Clarity Clear Urine pH 6.0 Urine Specific [place] >=1.030 Urine Protein Negative mg/dL (NEG-TRACE) Urine Glucose (UA) Negative mg/dL (NEG) Urine Ketones (Stick) 15 mg/dL (NEG) Urine Blood Negative (NEG) Urine Nitrite Negative (NEG) Urine Bilirubin Negative (NEG) Urine Urobilinogen Dipstick 0.2 mg/dL (0.2 mg/dL) Urine Leukocyte Esterase Negative (NEG) Urine RBC Occ /HPF (0-2) Urine WBC 1-4 /HPF (0-4) Urine Squamous Epithelial Cells Few /LPF Urine Bacteria 0 /HPF (0-FEW) Sodium Level 136 mmol/L (136-145) Potassium Level 3.5 mmol/L (3.5-5.1) Chloride Level 100 mmol/L (98-107) Carbon Dioxide Level 25 mmol/L (21-32) Anion Gap 11 (6-14) Blood Urea Nitrogen 9 mg/dL (7-20) Creatinine 0.6 mg/dL (0.6-1.0) Estimated GFR (Cockcroft-Gault) 101.6 BUN/Creatinine Ratio 15 (6-20) Glucose Level 108 mg/dL (70-99) H Calcium Level 9.3 mg/dL (8.5-10.1) Total Bilirubin 1.2 mg/dL (0.2-1.0) H Aspartate Amino Transferase (AST) 28 U/L (15-37) Alanine Aminotransferase (ALT) 32 U/L (14-59) Alkaline Phosphatase 112 U/L (46-116) Total Protein 7.6 g/dL (6.4-8.2) Albumin 3.8 g/dL (3.4-5.0) Albumin/Globulin Ratio 1.0 (1.0-1.7) Lipase 68 U/L (73-393) L Laboratory Tests 11/25/18 20:28 Laboratory Tests 11/25/18 20:28 EKG EKG [] Radiology/Procedures Radiology/Procedures [] Course & Med Decision Making Course & Med Decision Making Pertinent Labs and Imaging studies reviewed. (See chart for details) [] Dragon Disclaimer Dragon Disclaimer This electronic medical record was generated, in whole or in part, using a voice recognition dictation system. Departure Departure Impression: Primary Impression: Acute appendicitis Disposition: ADMITTED INPATIENT Admitting Physician: Other (Jose) Condition: IMPROVED Referrals: GENEVA RAMIREZ MD (PCP) Problem Qualifiers Primary Impression: Acute appendicitis Acute appendicitis type: unspecified acute appendicitis type Qualified Codes : K35.80 - Unspecified acute appendicitis CASSIE HYMAN Jr. DO Nov 25, 2018 20:28
[2018-11-25] MEDS ORDERED: ONDANSETRON PF 4 MG/2 ML VIAL. IV ONE (20:30)
[2018-11-25] MEDS ORDERED: HYDROmorphone 2 MG/ML VIAL IV/SQ PRN (20:30)
[2018-11-25] MEDS ORDERED: PIPERACILLIN/TAZOBACTAM 4.5 GM in IV NORMAL SALINE 100ML 100 ML IV ONE (20:30)
[2018-11-25 20:36] LABS: BASO % 1 % (0-3); EOS # 0.1 x10^3/uL (0.0-0.7); EOS % 2 % (0-3); HEMATOCRIT 40.4 % (36.0-47.0); HEMOGLOBIN 13.5 g/dL (12.0-15.5); LYMPH # 1.9 x10^3/uL (1.0-4.8); LYMPH % 25 % (24-48); MEAN CORPUSCULAR HEMOGLOBIN 30 pg (25-35); MEAN CORPUSCULAR HGB CONC 33 g/dL (31-37); MEAN CORPUSCULAR VOLUME 91 fL (79-100); MONO # 0.5 x10^3/uL (0.0-1.1); MONO % 7 % (0-9); NEUT # 5.1 x10^3uL (1.8-7.7); NEUT % 66 % (31-73); PLATELET COUNT 198 x10^3/uL (140-400); RED BLOOD COUNT 4.45 x10^6/uL (3.50-5.40); RED CELL DISTRIBUTION WIDTH 13.7 % (11.5-14.5); WHITE BLOOD COUNT 7.7 x10^3/uL (4.0-11.0)
[2018-11-25 20:37] LABS: BILIRUBIN,URINE NEGATIVE (NEG); CLARITY,URINE CLEAR; COLOR,URINE YELLOW; NITRITE,URINE NEGATIVE (NEG); PROTEIN,URINE NEGATIVE (NEG-TRACE); UROBILINOGEN,URINE 0.2 mg/dL (0.2 mg/dL)
[2018-11-25 20:42] LABS: BACTERIA,URINE 0 /HPF (0-FEW); RBC,URINE OCC /HPF (0-2); SQUAMOUS EPITHELIAL CELL,UR FEW /LPF
[2018-11-25 20:43] LABS: CALCIUM 9.3 mg/dL (8.5-10.1); CREATININE 0.6 mg/dL (0.6-1.0); GFR 101.6; POTASSIUM 3.5 mmol/L (3.5-5.1)
[2018-11-25 20:49] LABS: ALBUMIN 3.8 g/dL (3.4-5.0); TOTAL BILIRUBIN 1.2 mg/dL (0.2-1.0); TOTAL PROTEIN 7.6 g/dL (6.4-8.2)
[2018-11-25] MEDS ORDERED: HYDROmorphone 2 MG/ML VIAL IV ONE (22:30)
[2018-11-25 23:00] VITALS: BP 150/73
[2018-11-26] VITALS (12 sets, daily range): BP systolic 109–168; BP diastolic 61–83
[2018-11-26] MEDS: IV NORMAL SALINE 1000ML BAG 1,000 ML IV SCH ×3 (00:17→20:25)
[2018-11-26] MEDS: PIPERACILLIN/TAZOBACTAM 3.375 GM in IV NORMAL SALINE 50ML 50 ML IV SCH ×5 (01:19→20:26)
[2018-11-26] MEDS: fentaNYL PF VIAL 100 MCG/2 ML VIAL IV PRN ×3 (06:00→20:29)
[2018-11-26] MEDS ORDERED: BUPIVAC MPF-EPI 0.5%-1:200000 30 ML VIAL. ONE (06:26)
--- NOTE | 2018-11-26 06:34 | EKG ---
[facility] [address] [place] [address] Test Date: 2018-11-25 Test Time: 21:02:13 Pat Name: WILMA MANUEL Department: Room: [facility] Gender: F Restaurant Inspector: : 1955 Requested By: CASSIE HYMAN Order Number: [id number] Reading MD: Tino Zhao Measurements Intervals [place] Rate: 94 P: 17 [place]: 184 QRS: 6 QRSD: 84 T: 43 QT: 362 QTc: 458 Interpretive Statements SINUS RHYTHM NORMAL ECG RI6.01 No previous ECG available for comparison Electronically Signed On 12-02-2018 13:02:46 CDT by Tino Zhao
[2018-11-26] MEDS ORDERED: IV RINGERS,LACTATED 1000ML 1,000 ML IV SCH (06:36)
[2018-11-26] MEDS ORDERED: ONDANSETRON PF 4 MG/2 ML VIAL. IV PRN (06:45)
[2018-11-26] MEDS ORDERED: MORPHINE SULFATE 2 MG/ML VIAL. IV PRN (06:45)
[2018-11-26] MEDS ORDERED: LIDOCAINE 1% PF 2 ML VIAL. ID PRN (06:45)
[2018-11-26] MEDS ORDERED: PROCHLORPERAZINE 10 MG/2 ML VIAL. IV PRN (06:45)
[2018-11-26] MEDS ORDERED: HYDROmorphone 2 MG/ML VIAL IV PRN (06:45)
[2018-11-26] MEDS ORDERED: fentaNYL PF VIAL 100 MCG/2 ML VIAL IV PRN ×2 (06:45)
[2018-11-26] MEDS ORDERED: ROCURONIUM 50 MG/5 ML VIAL. ONE (07:04)
[2018-11-26] MEDS ORDERED: PROPOFOL 20 ML IV ONE (07:04)
[2018-11-26] MEDS ORDERED: SUCCINYLCHOLINE 200 MG/10 ML VIAL. ONE (07:04)
[2018-11-26] MEDS ORDERED: LIDOCAINE 2% PF 5 ML VIAL. ONE (07:04)
[2018-11-26] MEDS ORDERED: fentaNYL PF VIAL 100 MCG/2 ML VIAL ONE ×2 (07:05→09:37)
[2018-11-26] MEDS ORDERED: DEXAMETHASONE SOD PHOS 20 MG/5 ML VIAL. ONE (07:41)
[2018-11-26] MEDS ORDERED: ONDANSETRON PF 4 MG/2 ML VIAL. ONE (07:41)
[2018-11-26] MEDS ORDERED: DESFLURANE 31 TO 60 MINUTES IH ONE (07:41)
[2018-11-26] MEDS ORDERED: GLYCOPYRROLATE 1 MG/5 ML VIAL. ONE (07:51)
[2018-11-26] MEDS ORDERED: NEOSTIGMINE METHYLSULFATE 5 MG/5 ML SYRINGE. ONE (07:51)
[2018-11-26] MEDS ORDERED: KETOROLAC 30 MG/ML INJ FOR OR. INJ ONE (08:49)
--- NOTE | 2018-11-26 09:21 | PDOC2 ---
CONSULT Date of Consult Date of Consult DATE: 11/26/18 TIME: 09:17 History of Present Illness Reason for Visit: The patient is a 63-year-old female who reported to her primary care physician due to abdominal pain. The pain began 3-4 days ago and was located in the low midabdomen. The pain fluctuated with his intensity and seemed to improve at times. She initially felt that she was constipated and tried some laxatives. The pain persisted after the weekend prompting her to report to her physician and an outside CT scan was performed. This was positive for appendicitis and she was referred to the emergency department. She states that she continues to have right lower quadrant pain but denies nausea, vomiting, fever, or chills. Past Medical History Past Medical History Hypertension Past Surgical History Past Surgical History , tonsillectomy Social History No ALCOHOL: rare Current Problem List Problem List Problems Medical Problems: (1) Acute appendicitis Status: Acute Current Medications Current Medications Current Medications Hydromorphone HCl (Dilaudid) 0.5 mg PRN Q15MIN PRN IV/SQ PAIN GREATER THAN 3/ 10 Last administered on 11/25/18at 20:37; Start 11/25/18 at 20:30; Stop 11/26/18 at 20:29 Sodium Chloride 1,000 ml @ 100 mls/hr Q10H IV Last administered on 11/25/18at 20:35; Start 11/25/18 at 20:21; Stop 11/26/18 at 06:20; Status DC Ondansetron HCl (Zofran) 4 mg 1X ONCE IV Last administered on 11/25/18at 20:36 ; Start 11/25/18 at 20:30; Stop 11/25/18 at 20:31; Status DC Piperacillin Sod/ Tazobactam Sod 4.5 gm/Sodium Chloride 100 ml @ 200 mls/hr 1X ONCE IV Last administered on 11/25/18at 20:55; Start 11/25/18 at 20:30; Stop 11/25/18 at 20:59; Status DC Hydromorphone HCl (Dilaudid) 0.5 mg 1X ONCE IV ; Start 11/25/18 at 22:30; Stop 11/26/18 at 01:32; Status DC Fentanyl Citrate (Fentanyl 2ml Vial) 50 mcg PRN Q2HRS PRN IV SEVERE PAIN Last administered on 11/26/18at 06:00; Start 11/26/18 at 01:45 Ondansetron HCl (Zofran) 4 mg PRN Q6HRS PRN IV NAUSEA/VOMITING 1ST CHOICE; Start 11/26/18 at 02:00 Piperacillin Sod/ Tazobactam Sod 3.375 gm/Sodium Chloride 50 ml @ 100 mls/hr Q6HRS IV Last administered on 11/26/18at 05:56; Start 11/26/18 at 00:00 Sodium Chloride 1,000 ml @ 100 mls/hr Q10H IV Last administered on 11/26/18at 00:17; Start 11/26/18 at 00:00 Ondansetron HCl (Zofran) 4 mg PRN Q6HRS PRN IV NAUSEA/VOMITING; Start 11/26/18 at 06:45; Stop 11/27/18 at 06:44 Fentanyl Citrate (Fentanyl 2ml Vial) 25 mcg PRN Q5MIN PRN IV MILD PAIN; Start 11/26/18 at 06:45; Stop 11/27/18 at 06:44 Fentanyl Citrate (Fentanyl 2ml Vial) 50 mcg PRN Q5MIN PRN IV MODERATE TO SEVERE PAIN; Start 11/26/18 at 06:45; Stop 11/27/18 at 06:44 Morphine Sulfate (Morphine Sulfate) 1 mg PRN Q10MIN PRN IV SEVERE PAIN; Start 11/26/18 at 06:45; Stop 11/27/18 at 06:44 Ringer's Solution 1,000 ml @ 30 mls/hr Q24H IV ; Start 11/26/18 at 06:36; Stop 11/26/18 at 18:35 Lidocaine HCl (Xylocaine-Mpf 1% 2ml Vial) 2 ml 1X PRN PRN ID IV START; Start at 06:45; Stop 11/27/18 at 06:44 Hydromorphone HCl (Dilaudid) 0.5 mg PRN Q10MIN PRN IV SEV PAIN, Second choice; Start 11/26/18 at 06:45; Stop 11/27/18 at 06:44 Prochlorperazine Edisylate (Compazine) 5 mg PACU PRN PRN IV NAUSEA, MRX1; Start 11/26/18 at 06:45; Stop 11/27/18 at 06:44 Propofol 20 ml @ As Directed STK-MED ONCE IV ; Start 11/26/18 at 07:04; Stop at 07:05; Status DC Lidocaine HCl (Lidocaine Pf 2% Vial) 5 ml STK-MED ONCE .ROUTE ; Start 11/26/18 at 07:04; Stop 11/26/18 at 07:05; Status DC Succinylcholine Chloride (Anectine) 200 mg STK-MED ONCE .ROUTE ; Start 11/26/18 at 07:04; Stop 11/26/18 at 07:05; Status DC Rocuronium Purdys (Zemuron) 50 mg STK-MED ONCE .ROUTE ; Start 11/26/18 at 07:04 ; Stop 11/26/18 at 07:05; Status DC Fentanyl Citrate (Fentanyl 2ml Vial) 100 mcg STK-MED ONCE .ROUTE ; Start at 07:05; Stop 11/26/18 at 07:06; Status DC Bupivacaine HCl/ Epinephrine Bitart (Sensorcain-Mpf Epi 0.5%-[id number]) 30 ml STK -MED ONCE .ROUTE Last administered on 11/26/18at 07:57; Start 11/26/18 at 06:26 ; Stop 11/26/18 at 07:26; Status DC Dexamethasone Sodium Phosphate (Decadron) 20 mg STK-MED ONCE .ROUTE ; Start at 07:41; Stop 11/26/18 at 07:42; Status DC Ondansetron HCl (Zofran) 4 mg STK-MED ONCE .ROUTE ; Start 11/26/18 at 07:41; Stop 11/26/18 at 07:42; Status DC Desflurane (Suprane) 30 ml STK-MED ONCE IH ; Start 11/26/18 at 07:41; Stop 11/26 at 07:42; Status DC Neostigmine Methylsulfate (Neostigmine Methylsulfate) 5 mg STK-MED ONCE .ROUTE ; Start 11/26/18 at 07:51; Stop 11/26/18 at 07:52; Status DC Glycopyrrolate (Robinul) 1 mg STK-MED ONCE .ROUTE ; Start 11/26/18 at 07:51; Stop 11/26/18 at 07:52; Status DC Ketorolac Tromethamine (Toradol For Or Only) 30 mg STK-MED ONCE INJ ; Start at 08:49; Stop 11/26/18 at 08:50; Status DC Active Scripts Active Allergies Allergies: Coded Allergies: acyclovir (Verified Allergy, Intermediate, Swelling, 07/25/17) sulfamethoxazole (Verified Allergy, Intermediate, 07/25/17) trimethoprim (Verified Allergy, Intermediate, 07/25/17) ROS General: No: Chills, Night Sweats, Fatigue, Malaise, Appetite, Other PSYCHOLOGICAL ROS: No: Anxiety, Behavioral Disorder, Concentration difficultie , Decreased libido, Depression, Disorientation, Hallucinations, Hostility, Irritablity, Memory difficulties, Mood Swings, Obsessive thoughts, Physical abuse, Sexual abuse, Sleep disturbances, Suicidal ideation, Other Eyes: No Blurry vision, No Decreased vision, No Double vision, No Dry eyes, No Excessive tearing, No Eye Pain, No Itchy Eyes, No Loss of vision, No Photophobia , No Scotomata, No Uses contacts, No Uses glasses, No Other HEENT: No: Heacaches, Visual Changes, Hearing change, Nasal congestion, Nasal discharge, Oral lesions, Sinus pain, Sore Throat, Epistaxis, Sneezing, Snoring, Tinnitus, Vertigo, Vocal changes, Other Hematological and Lymphatic: No: Bleeding Problems, Blood Clots, Blood Transfusions, Brusing, Night Sweats, Pallor, Swollen Lymph Nodes, Other ENDOCRINE: No: Breast Changes, Galactorrhea, Hair Pattern Changes, Hot Flashes , Malaise/lethargy, Mood Swings, Palpitations, Polydipsia/polyuria, Skin Changes , Temperature Intolerance, Unexpected Weight Changes, Other Respiratory: No: Cough, Hemoptysis, Orthopnea, Pleuritic Pain, Shortness of breath, SOB with excertion, Sputum Changes, Stridor, Tachypnea, Wheezing, Other Cardiovascular: No Chest Pain, No Palpitations, No Orthopnea, No Paroxysmal Noc. Dyspnea, No Edema, No Lt Headedness, No Other Gastrointestinal: Yes Abdominal Pain, Yes Constipation Genitourinary: No Dysuria, No Frequency, No Incontinence, No Hematuria, No Retention, No Discharge, No Urgency, No Pain, No Flank Pain, No Other, No , No , No , No , No , No , No Musculoskeletal: No Gait Disturbance, No Joint Pain, No Joint Stiffness, No Joint Swelling, No Muscle Pain, No Muscular Weakness, No Pain In:, No Swelling In:, No Other Neurological: No Behavorial Changes, No Bowel/Bladder ControlChng, No Confusion , No Dizziness, No Gait Disturbance, No Headaches, No Impaired Coord/balance, No Memory Loss, No Numbness/Tingling, No Seizures, No Speech Problems, No Tremors, No Visual Changes, No Weakness, No Other Skin: No Dry Skin, No Eczema, No Hair Changes, No Lumps, No Mole Changes, No Mottling, No Nail Changes, No Pruritus, No Rash, No Skin Lesion Changes, No Other, No Acne Physical Exam General: Alert, Oriented X3, Cooperative, No acute distress HEENT: Atraumatic Lungs: Clear to auscultation Heart: Regular rate Abdomen: Soft (tender in right lower quadrant with palpation) Extremities: No clubbing, No cyanosis Skin: No rashes, No breakdown Neuro: Normal speech Psych/Mental Status: Mental status NL MUSCULOSKELETAL: No joint tenderness, No deformity Vitals VITALS Vital Signs Date Time Temp Pulse Resp B/P (MAP) Pulse Ox O2 Delivery O2 Flow Rate FiO2 11/26/18 07:00 98.9 88 20 117/66 (83) 90 Room Air 98.9 Labs Labs Laboratory Tests Test 11/25/18 20:28 White Blood Count 7.7 x10^3/uL (4.0-11.0) Red Blood Count 4.45 x10^6/uL (3.50-5.40) Hemoglobin 13.5 g/dL (12.0-15.5) Hematocrit 40.4 % (36.0-47.0) Mean Corpuscular Volume 91 fL (79-100) Mean Corpuscular Hemoglobin 30 pg (25-35) Mean Corpuscular Hemoglobin Concent 33 g/dL (31-37) Red Cell Distribution Width 13.7 % (11.5-14.5) Platelet Count 198 x10^3/uL (140-400) Neutrophils (%) (Auto) 66 % (31-73) Lymphocytes (%) (Auto) 25 % (24-48) Monocytes (%) (Auto) 7 % (0-9) Eosinophils (%) (Auto) 2 % (0-3) Basophils (%) (Auto) 1 % (0-3) Neutrophils # (Auto) 5.1 x10^3uL (1.8-7.7) Lymphocytes # (Auto) 1.9 x10^3/uL (1.0-4.8) Monocytes # (Auto) 0.5 x10^3/uL (0.0-1.1) Eosinophils # (Auto) 0.1 x10^3/uL (0.0-0.7) Basophils # (Auto) 0.0 x10^3/uL (0.0-0.2) Urine Collection Type Unknown Urine Color Yellow Urine Clarity Clear Urine pH 6.0 Urine Specific [place] >=1.030 Urine Protein Negative mg/dL (NEG-TRACE) Urine Glucose (UA) Negative mg/dL (NEG) Urine Ketones (Stick) 15 mg/dL (NEG) Urine Blood Negative (NEG) Urine Nitrite Negative (NEG) Urine Bilirubin Negative (NEG) Urine Urobilinogen Dipstick 0.2 mg/dL (0.2 mg/dL) Urine Leukocyte Esterase Negative (NEG) Urine RBC Occ /HPF (0-2) Urine WBC 1-4 /HPF (0-4) Urine Squamous Epithelial Cells Few /LPF Urine Bacteria 0 /HPF (0-FEW) Sodium Level 136 mmol/L (136-145) Potassium Level 3.5 mmol/L (3.5-5.1) Chloride Level 100 mmol/L (98-107) Carbon Dioxide Level 25 mmol/L (21-32) Anion Gap 11 (6-14) Blood Urea Nitrogen 9 mg/dL (7-20) Creatinine 0.6 mg/dL (0.6-1.0) Estimated GFR (Cockcroft-Gault) 101.6 BUN/Creatinine Ratio 15 (6-20) Glucose Level 108 mg/dL (70-99) Calcium Level 9.3 mg/dL (8.5-10.1) Total Bilirubin 1.2 mg/dL (0.2-1.0) Aspartate Amino Transf (AST/SGOT) 28 U/L (15-37) Alanine Aminotransferase (ALT/SGPT) 32 U/L (14-59) Alkaline Phosphatase 112 U/L (46-116) Total Protein 7.6 g/dL (6.4-8.2) Albumin 3.8 g/dL (3.4-5.0) Albumin/Globulin Ratio 1.0 (1.0-1.7) Lipase 68 U/L (73-393) Laboratory Tests Test 11/25/18 20:28 White Blood Count 7.7 x10^3/uL (4.0-11.0) Red Blood Count 4.45 x10^6/uL (3.50-5.40) Hemoglobin 13.5 g/dL (12.0-15.5) Hematocrit 40.4 % (36.0-47.0) Mean Corpuscular Volume 91 fL (79-100) Mean Corpuscular Hemoglobin 30 pg (25-35) Mean Corpuscular Hemoglobin Concent 33 g/dL (31-37) Red Cell Distribution Width 13.7 % (11.5-14.5) Platelet Count 198 x10^3/uL (140-400) Neutrophils (%) (Auto) 66 % (31-73) Lymphocytes (%) (Auto) 25 % (24-48) Monocytes (%) (Auto) 7 % (0-9) Eosinophils (%) (Auto) 2 % (0-3) Basophils (%) (Auto) 1 % (0-3) Neutrophils # (Auto) 5.1 x10^3uL (1.8-7.7) Lymphocytes # (Auto) 1.9 x10^3/uL (1.0-4.8) Monocytes # (Auto) 0.5 x10^3/uL (0.0-1.1) Eosinophils # (Auto) 0.1 x10^3/uL (0.0-0.7) Basophils # (Auto) 0.0 x10^3/uL (0.0-0.2) Urine Collection Type Unknown Urine Color Yellow Urine Clarity Clear Urine pH 6.0 Urine Specific [place] >=1.030 Urine Protein Negative mg/dL (NEG-TRACE) Urine Glucose (UA) Negative mg/dL (NEG) Urine Ketones (Stick) 15 mg/dL (NEG) Urine Blood Negative (NEG) Urine Nitrite Negative (NEG) Urine Bilirubin Negative (NEG) Urine Urobilinogen Dipstick 0.2 mg/dL (0.2 mg/dL) Urine Leukocyte Esterase Negative (NEG) Urine RBC Occ /HPF (0-2) Urine WBC 1-4 /HPF (0-4) Urine Squamous Epithelial Cells Few /LPF Urine Bacteria 0 /HPF (0-FEW) Sodium Level 136 mmol/L (136-145) Potassium Level 3.5 mmol/L (3.5-5.1) Chloride Level 100 mmol/L (98-107) Carbon Dioxide Level 25 mmol/L (21-32) Anion Gap 11 (6-14) Blood Urea Nitrogen 9 mg/dL (7-20) Creatinine 0.6 mg/dL (0.6-1.0) Estimated GFR (Cockcroft-Gault) 101.6 BUN/Creatinine Ratio 15 (6-20) Glucose Level 108 mg/dL (70-99) Calcium Level 9.3 mg/dL (8.5-10.1) Total Bilirubin 1.2 mg/dL (0.2-1.0) Aspartate Amino Transf (AST/SGOT) 28 U/L (15-37) Alanine Aminotransferase (ALT/SGPT) 32 U/L (14-59) Alkaline Phosphatase 112 U/L (46-116) Total Protein 7.6 g/dL (6.4-8.2) Albumin 3.8 g/dL (3.4-5.0) Albumin/Globulin Ratio 1.0 (1.0-1.7) Lipase 68 U/L (73-393) Assessment/Plan Assessment/Plan 63-year-old female with 3-4 day history of right lower quadrant pain, outside CT scan positive for appendicitis. Plan to proceed to the operating room for laparoscopy. I discussed the details and risks of surgery with the patient. The risks include bleeding, infection, open conversion, pain, visceral injury, anesthetic risk, potential need for additional surgery procedure. She understands and would like to proceed. BRUCE KWOK MD Nov 26, 2018 09:21
--- NOTE | 2018-11-26 09:27 | PDOC4 ---
Operative Note Operative Note Preoperative Diagnosis: Acute Appendicitis Postoperative Diagnosis: Same Procedure: Laparoscopic appendectomy Surgeon: Tayo System: Pilar ELLISON Anesthesia: Gen. EBL: 20 mL Specimen: Appendix to pathology Drains: 19 [place] round [place]orge drain to right lower quadrant Complications: None Indication: The patient is a 63-year-old female who reported with a 3-4 day history of right lower quadrant pain. She was seen by her primary care physician and an outpatient CT scan was positive for appendicitis. She was referred to the ER for admission and treatment. The patient was offered surgical treatment with a laparoscopic appendectomy. The risks of surgery were discussed which include bleeding, infection, visceral injury, pain, anesthetic risk, potential need for additional surgery or procedure. The patient understands and would like to proceed. Description: The patient was taken to the operating room and placed supine on the operating table. Gen. anesthesia was performed. The abdomen was prepped with ChloraPrep and draped in a standard surgical manner. A left abdominal incision was made through which a visualized 5 mm trocar was inserted. A pneumoperitoneum was created and the laparoscope was introduced. In the left lower quadrant a 5 mm trocar was inserted. In the suprapubic region a 12 mm trocar was inserted. We directed our attention the right lower quadrant and there was an obvious inflammatory reaction involving a portion of the cecum and an obviously inflamed densely adherent appendix. There was no clear evidence of periappendiceal abscess. We began mobilizing the appendix and freed it from several inflammatory adhesions. The mesoappendix was bluntly from the appendix. The mesoappendix was controlled using several clips and it was divided. The appendix was then freed up down to its base. We attempted to amputate the appendix using an Endo TRANG 45 stapling device. With application of the device prior to firing the staple line the appendix completely fractured at the level of the cecum leaving a hole. There appeared to be a probable appendicolith which had fragmented as well and efforts were made to remove these pieces carefully. The remaining hole was successfully closed using 2-0 Vicryl with sutures placed endoscopically in the cecum. Inspection showed it to appeared to be a secure closure and no further contamination or leakage. The entire abdominal cavity was then irrigated with a significant amount of sterile saline which was also suctioned. Hemostasis was good and reinspection of the suture line showed it to be intact. The appendix was then placed in an endoscopic bag and extracted at the suprapubic incision site. A 19 [place] round Gorge drain was then left in the right lower quadrant with an exit site at the left lower quadrant trocar incision. This was secured to the skin with 2-0 silk. The 12 mm trocar was then removed and the fascia there was closed with 0 Vicryl and infiltrated with half percent Marcaine with epinephrine. The remaining ports were removed and the pneumoperitoneum was relieved. The skin at all incision sites was closed with 4-0 Monocryl. Steri-Strips and dressings were applied. The patient tolerated the procedure well and was sent to the recovery room in stable condition. At the end of the case all counts were correct. BRUCE KWOK MD Nov 26, 2018 09:27
--- NOTE | 2018-11-26 10:48 | PDOC1 ---
History and Physical Date of Admission Date of Admission DATE: 11/26/18 TIME: 10:48 Identification/Chief Complaint Chief Complaint SEEN IN ER , 63-year-old female who presents with complaint of acute abdominal pain that started this past Sunday evening and has intensified since. Patient states that initially she thought she was constipated. She states that she had taken a Dulcolax without any improvement. She states that Sunday symptoms had worsened and again Sunday even worse. She was seen by her primary care doctor today who had ordered an outpatient CT scan and patient presents with imaging report from diagnostic radiology demonstrating a dilated appendix consistent with appendicitis History of Present Illness History of Present Illness Operative Note Operative Note Preoperative Diagnosis: Acute Appendicitis Postoperative Diagnosis: Same Procedure: Laparoscopic appendectomy Surgeon: Tayo System: Pilar ELLISON Anesthesia: Gen. EBL: 20 mL Specimen: Appendix to pathology Past Medical History Past Medical History Past Medical History Past Medical History Past Surgical History: Additional Past Surgical Histo: RIGHT THUMB, LOW BACK SURG HX osteomyelitis right thumb , Alcohol Use: Occasionally FAMILY HX OBESITY Heme/Onc: No pertinent hx Hepatobiliary: No pertinent hx Family History Family History: High Cholestrol Social History Smoke: No ALCOHOL: rare Drugs: None Current Problem List Problem List Problems Medical Problems: (1) Acute appendicitis Status: Acute Current Medications Current Medications Current Medications Hydromorphone HCl (Dilaudid) 0.5 mg PRN Q15MIN PRN IV/SQ PAIN GREATER THAN 3/ 10 Last administered on 11/25/18at 20:37; Start 11/25/18 at 20:30; Stop 11/26/18 at 20:29 Sodium Chloride 1,000 ml @ 100 mls/hr Q10H IV Last administered on 11/25/18at 20:35; Start 11/25/18 at 20:21; Stop 11/26/18 at 06:20; Status DC Ondansetron HCl (Zofran) 4 mg 1X ONCE IV Last administered on 11/25/18at 20:36 ; Start 11/25/18 at 20:30; Stop 11/25/18 at 20:31; Status DC Piperacillin Sod/ Tazobactam Sod 4.5 gm/Sodium Chloride 100 ml @ 200 mls/hr 1X ONCE IV Last administered on 11/25/18at 20:55; Start 11/25/18 at 20:30; Stop 11/25/18 at 20:59; Status DC Hydromorphone HCl (Dilaudid) 0.5 mg 1X ONCE IV ; Start 11/25/18 at 22:30; Stop 11/26/18 at 01:32; Status DC Fentanyl Citrate (Fentanyl 2ml Vial) 50 mcg PRN Q2HRS PRN IV SEVERE PAIN Last administered on 11/26/18at 06:00; Start 11/26/18 at 01:45 Ondansetron HCl (Zofran) 4 mg PRN Q6HRS PRN IV NAUSEA/VOMITING 1ST CHOICE; Start 11/26/18 at 02:00 Piperacillin Sod/ Tazobactam Sod 3.375 gm/Sodium Chloride 50 ml @ 100 mls/hr Q6HRS IV Last administered on 11/26/18at 05:56; Start 11/26/18 at 00:00 Sodium Chloride 1,000 ml @ 100 mls/hr Q10H IV Last administered on 11/26/18at 00:17; Start 11/26/18 at 00:00 Ondansetron HCl (Zofran) 4 mg PRN Q6HRS PRN IV NAUSEA/VOMITING; Start 11/26/18 at 06:45; Stop 11/27/18 at 06:44 Fentanyl Citrate (Fentanyl 2ml Vial) 25 mcg PRN Q5MIN PRN IV MILD PAIN; Start 11/26/18 at 06:45; Stop 11/27/18 at 06:44 Fentanyl Citrate (Fentanyl 2ml Vial) 50 mcg PRN Q5MIN PRN IV MODERATE TO SEVERE PAIN Last administered on 11/26/18at 10:15; Start 11/26/18 at 06:45; Stop 11/27/18 at 06:44 Morphine Sulfate (Morphine Sulfate) 1 mg PRN Q10MIN PRN IV SEVERE PAIN; Start 11/26/18 at 06:45; Stop 11/27/18 at 06:44 Ringer's Solution 1,000 ml @ 30 mls/hr Q24H IV ; Start 11/26/18 at 06:36; Stop 11/26/18 at 18:35 Lidocaine HCl (Xylocaine-Mpf 1% 2ml Vial) 2 ml 1X PRN PRN ID IV START; Start at 06:45; Stop 11/27/18 at 06:44 Hydromorphone HCl (Dilaudid) 0.5 mg PRN Q10MIN PRN IV SEV PAIN, Second choice; Start 11/26/18 at 06:45; Stop 11/27/18 at 06:44 Prochlorperazine Edisylate (Compazine) 5 mg PACU PRN PRN IV NAUSEA, MRX1; Start 11/26/18 at 06:45; Stop 11/27/18 at 06:44 Propofol 20 ml @ As Directed STK-MED ONCE IV ; Start 11/26/18 at 07:04; Stop at 07:05; Status DC Lidocaine HCl (Lidocaine Pf 2% Vial) 5 ml STK-MED ONCE .ROUTE ; Start 11/26/18 at 07:04; Stop 11/26/18 at 07:05; Status DC Succinylcholine Chloride (Anectine) 200 mg STK-MED ONCE .ROUTE ; Start 11/26/18 at 07:04; Stop 11/26/18 at 07:05; Status DC Rocuronium [place] (Zemuron) 50 mg STK-MED ONCE .ROUTE ; Start 11/26/18 at 07:04 ; Stop 11/26/18 at 07:05; Status DC Fentanyl Citrate (Fentanyl 2ml Vial) 100 mcg STK-MED ONCE .ROUTE ; Start at 07:05; Stop 11/26/18 at 07:06; Status DC Bupivacaine HCl/ Epinephrine Bitart (Sensorcain-Mpf Epi 0.5%-1:[id number]) 30 ml STK -MED ONCE .ROUTE Last administered on 11/26/18at 07:57; Start 11/26/18 at 06:26 ; Stop 11/26/18 at 07:26; Status DC Dexamethasone Sodium Phosphate (Decadron) 20 mg STK-MED ONCE .ROUTE ; Start at 07:41; Stop 11/26/18 at 07:42; Status DC Ondansetron HCl (Zofran) 4 mg STK-MED ONCE .ROUTE ; Start 11/26/18 at 07:41; Stop 11/26/18 at 07:42; Status DC Desflurane (Suprane) 30 ml STK-MED ONCE IH ; Start 11/26/18 at 07:41; Stop 11/26 at 07:42; Status DC Neostigmine Methylsulfate (Neostigmine Methylsulfate) 5 mg STK-MED ONCE .ROUTE ; Start 11/26/18 at 07:51; Stop 11/26/18 at 07:52; Status DC Glycopyrrolate (Robinul) 1 mg STK-MED ONCE .ROUTE ; Start 11/26/18 at 07:51; Stop 11/26/18 at 07:52; Status DC Ketorolac Tromethamine (Toradol For Or Only) 30 mg STK-MED ONCE INJ ; Start at 08:49; Stop 11/26/18 at 08:50; Status DC Oxycodone/ Acetaminophen (Percocet 5/325) 1 tab PRN Q4HRS PRN PO PAIN; Start at 09:30 Oxycodone/ Acetaminophen (Percocet 5/325) 2 tab PRN Q4HRS PRN PO PAIN; Start at 09:45 Fentanyl Citrate (Fentanyl 2ml Vial) 100 mcg STK-MED ONCE .ROUTE ; Start at 09:37; Stop 11/26/18 at 09:38; Status DC Active Scripts Active Allergies Allergies: Coded Allergies: acyclovir (Verified Allergy, Intermediate, Swelling, 07/25/17) sulfamethoxazole (Verified Allergy, Intermediate, 07/25/17) trimethoprim (Verified Allergy, Intermediate, 07/25/17) ROS Review of System Review of Systems Review of Systems Constitutional: Denies fever or chills [] Respiratory: Denies cough or shortness of breath [] Cardiovascular: No additional information not addressed in HPI [] GI: Positive abdominal pain with nausea. Denies diarrhea [] Integument: Denies rash or skin lesions [] Neurologic: Denies headache, focal weakness or sensory changes [] 14 PT systems were reviewed and found to be within normal limits, except as documented . ALLERGY AND IMMUNOLOGY: No: Hives, Insect Bite Sensitivity, Itchy/Watery Eyes, Nasal Congestion, Post Nasal Drip, Seasonal Allergies, Other Hematological and Lymphatic: No: Bleeding Problems, Blood Clots, Blood Transfusions, Brusing, Night Sweats, Pallor, Swollen Lymph Nodes, Other Respiratory: No: Cough, Hemoptysis, Orthopnea, Pleuritic Pain, Shortness of breath, SOB with excertion, Sputum Changes, Stridor, Tachypnea, Wheezing, Other Cardiovascular: No Chest Pain, No Palpitations, No Orthopnea, No Paroxysmal Noc. Dyspnea, No Edema, No Lt Headedness, No Other Physical Exam Physical Exam Physical Exam Physical Exam Constitutional: Well developed, well nourished, no acute distress, non-toxic appearance. [] HENT: Normocephalic, atraumatic, bilateral external ears normal, oropharynx moist, no oral exudates, nose normal. [] Eyes: PERRLA, EOMI, conjunctiva normal, no discharge. [] Neck: Normal range of motion, no tenderness, supple, no stridor. [] Cardiovascular: Regular rate and rhythm[] Lungs & Thorax: Bilateral breath sounds clear to auscultation [] Abdomen: Bowel sounds diminished, DRESSING DRY [] Skin: Warm, dry, no erythema, no rash. [] Extremities: No tenderness, no cyanosis, no clubbing, ROM intact, no edema. [] Neurologic: Alert and oriented X 3, no focal deficits noted. [] General: Alert, Oriented X3, Cooperative HEENT: Atraumatic, PERRLA Heart: RRR, no thrills, no murmurs Breasts: Not examined Rectal Exam: not examined Neuro: Normal speech, Cranial nerves 3-12 NL Psych/Mental Status: Mental status NL, Mood NL Vitals Vitals Vital Signs Date Time Temp Pulse Resp B/P (MAP) Pulse Ox O2 Delivery O2 Flow Rate FiO2 11/26/18 10:30 72 20 147/72 (97) 95 Nasal Cannula 3.0 11/26/18 10:17 97.9 97.9 Labs Labs Laboratory Tests Test 11/25/18 20:28 White Blood Count 7.7 x10^3/uL (4.0-11.0) Red Blood Count 4.45 x10^6/uL (3.50-5.40) Hemoglobin 13.5 g/dL (12.0-15.5) Hematocrit 40.4 % (36.0-47.0) Mean Corpuscular Volume 91 fL (79-100) Mean Corpuscular Hemoglobin 30 pg (25-35) Mean Corpuscular Hemoglobin Concent 33 g/dL (31-37) Red Cell Distribution Width 13.7 % (11.5-14.5) Platelet Count 198 x10^3/uL (140-400) Neutrophils (%) (Auto) 66 % (31-73) Lymphocytes (%) (Auto) 25 % (24-48) Monocytes (%) (Auto) 7 % (0-9) Eosinophils (%) (Auto) 2 % (0-3) Basophils (%) (Auto) 1 % (0-3) Neutrophils # (Auto) 5.1 x10^3uL (1.8-7.7) Lymphocytes # (Auto) 1.9 x10^3/uL (1.0-4.8) Monocytes # (Auto) 0.5 x10^3/uL (0.0-1.1) Eosinophils # (Auto) 0.1 x10^3/uL (0.0-0.7) Basophils # (Auto) 0.0 x10^3/uL (0.0-0.2) Urine Collection Type Unknown Urine Color Yellow Urine Clarity Clear Urine pH 6.0 Urine Specific [place] >=1.030 Urine Protein Negative mg/dL (NEG-TRACE) Urine Glucose (UA) Negative mg/dL (NEG) Urine Ketones (Stick) 15 mg/dL (NEG) Urine Blood Negative (NEG) Urine Nitrite Negative (NEG) Urine Bilirubin Negative (NEG) Urine Urobilinogen Dipstick 0.2 mg/dL (0.2 mg/dL) Urine Leukocyte Esterase Negative (NEG) Urine RBC Occ /HPF (0-2) Urine WBC 1-4 /HPF (0-4) Urine Squamous Epithelial Cells Few /LPF Urine Bacteria 0 /HPF (0-FEW) Sodium Level 136 mmol/L (136-145) Potassium Level 3.5 mmol/L (3.5-5.1) Chloride Level 100 mmol/L (98-107) Carbon Dioxide Level 25 mmol/L (21-32) Anion Gap 11 (6-14) Blood Urea Nitrogen 9 mg/dL (7-20) Creatinine 0.6 mg/dL (0.6-1.0) Estimated GFR (Cockcroft-Gault) 101.6 BUN/Creatinine Ratio 15 (6-20) Glucose Level 108 mg/dL (70-99) Calcium Level 9.3 mg/dL (8.5-10.1) Total Bilirubin 1.2 mg/dL (0.2-1.0) Aspartate Amino Transf (AST/SGOT) 28 U/L (15-37) Alanine Aminotransferase (ALT/SGPT) 32 U/L (14-59) Alkaline Phosphatase 112 U/L (46-116) Total Protein 7.6 g/dL (6.4-8.2) Albumin 3.8 g/dL (3.4-5.0) Albumin/Globulin Ratio 1.0 (1.0-1.7) Lipase 68 U/L (73-393) Laboratory Tests Test 11/25/18 20:28 White Blood Count 7.7 x10^3/uL (4.0-11.0) Red Blood Count 4.45 x10^6/uL (3.50-5.40) Hemoglobin 13.5 g/dL (12.0-15.5) Hematocrit 40.4 % (36.0-47.0) Mean Corpuscular Volume 91 fL (79-100) Mean Corpuscular Hemoglobin 30 pg (25-35) Mean Corpuscular Hemoglobin Concent 33 g/dL (31-37) Red Cell Distribution Width 13.7 % (11.5-14.5) Platelet Count 198 x10^3/uL (140-400) Neutrophils (%) (Auto) 66 % (31-73) Lymphocytes (%) (Auto) 25 % (24-48) Monocytes (%) (Auto) 7 % (0-9) Eosinophils (%) (Auto) 2 % (0-3) Basophils (%) (Auto) 1 % (0-3) Neutrophils # (Auto) 5.1 x10^3uL (1.8-7.7) Lymphocytes # (Auto) 1.9 x10^3/uL (1.0-4.8) Monocytes # (Auto) 0.5 x10^3/uL (0.0-1.1) Eosinophils # (Auto) 0.1 x10^3/uL (0.0-0.7) Basophils # (Auto) 0.0 x10^3/uL (0.0-0.2) Urine Collection Type Unknown Urine Color Yellow Urine Clarity Clear Urine pH 6.0 Urine Specific [place] >=1.030 Urine Protein Negative mg/dL (NEG-TRACE) Urine Glucose (UA) Negative mg/dL (NEG) Urine Ketones (Stick) 15 mg/dL (NEG) Urine Blood Negative (NEG) Urine Nitrite Negative (NEG) Urine Bilirubin Negative (NEG) Urine Urobilinogen Dipstick 0.2 mg/dL (0.2 mg/dL) Urine Leukocyte Esterase Negative (NEG) Urine RBC Occ /HPF (0-2) Urine WBC 1-4 /HPF (0-4) Urine Squamous Epithelial Cells Few /LPF Urine Bacteria 0 /HPF (0-FEW) Sodium Level 136 mmol/L (136-145) Potassium Level 3.5 mmol/L (3.5-5.1) Chloride Level 100 mmol/L (98-107) Carbon Dioxide Level 25 mmol/L (21-32) Anion Gap 11 (6-14) Blood Urea Nitrogen 9 mg/dL (7-20) Creatinine 0.6 mg/dL (0.6-1.0) Estimated GFR (Cockcroft-Gault) 101.6 BUN/Creatinine Ratio 15 (6-20) Glucose Level 108 mg/dL (70-99) Calcium Level 9.3 mg/dL (8.5-10.1) Total Bilirubin 1.2 mg/dL (0.2-1.0) Aspartate Amino Transf (AST/SGOT) 28 U/L (15-37) Alanine Aminotransferase (ALT/SGPT) 32 U/L (14-59) Alkaline Phosphatase 112 U/L (46-116) Total Protein 7.6 g/dL (6.4-8.2) Albumin 3.8 g/dL (3.4-5.0) Albumin/Globulin Ratio 1.0 (1.0-1.7) Lipase 68 U/L (73-393) VTE Prophylaxis Ordered VTE Prophylaxis Devices: Yes VTE Pharmacological Prophylaxi: Yes Assessment/Plan Assessment/Plan Impression: Acute appendicitis MORBID OBESITY REMOTE, HX osteomyelitis right thumb HYPERTENSION, MONITOR ADMITTED IV FLUID SUPPORT IV PAIN CONTROL NPO DVT PROPHYLAXIS ABDIRIZAK HINES MD Nov 26, 2018 10:48
[2018-11-26] MEDS: oxyCODONE/APAP 5/325 1 TAB TABLET PO PRN ×2 (13:30→18:02)
[2018-11-26] MEDS ORDERED: ATEN50TA PO ×2 (15:29)
[2018-11-26] MEDS: ATENOLOL 50 MG TABLET. PO SCH (16:58)
[2018-11-26] MEDS: HYDROmorphone 2 MG/ML VIAL IV PRN (21:59)
[2018-11-27] MEDS: HYDROmorphone 2 MG/ML VIAL IV PRN ×4 (02:11→12:03)
[2018-11-27 03:00] VITALS: BP 132/62
--- NOTE | 2018-11-27 05:09 | EKG ---
[facility] [address] [place] [id number] Test Date: 2018-11-27 Test Time: 01:05:58 Pat Name: WILMA MANUEL Department: Room: [facility] Gender: F [employer]: [facility] : 1955 Requested By: ABDIRIZAK HINES Order Number: [id number] Reading MD: Tino Zhao Measurements Intervals [place] Rate: 59 P: 58 AR: 224 QRS: 15 QRSD: 84 T: 49 QT: 442 QTc: 442 Interpretive Statements SINUS RHYTHM PROLONGED AR INTERVAL Electronically Signed On 12-02-2018 13:11:46 CDT by Tino Zhao
[2018-11-27 05:18] LABS: BASO % 0 % (0-3); EOS % 0 % (0-3); HEMOGLOBIN 11.8 g/dL (12.0-15.5); LYMPH # 0.8 x10^3/uL (1.0-4.8); LYMPH % 10 % (24-48); MEAN CORPUSCULAR HEMOGLOBIN 31 pg (25-35); MEAN CORPUSCULAR HGB CONC 34 g/dL (31-37); MEAN CORPUSCULAR VOLUME 91 fL (79-100); MONO # 0.4 x10^3/uL (0.0-1.1); MONO % 5 % (0-9); NEUT # 7.4 x10^3uL (1.8-7.7); NEUT % 85 % (31-73); PLATELET COUNT 201 x10^3/uL (140-400); RED BLOOD COUNT 3.84 x10^6/uL (3.50-5.40); RED CELL DISTRIBUTION WIDTH 13.5 % (11.5-14.5); WHITE BLOOD COUNT 8.7 x10^3/uL (4.0-11.0)
[2018-11-27] MEDS: PIPERACILLIN/TAZOBACTAM 3.375 GM in IV NORMAL SALINE 50ML 50 ML IV SCH ×4 (05:26→23:56)
[2018-11-27] MEDS: IV NORMAL SALINE 1000ML BAG 1,000 ML IV SCH ×2 (05:27→17:16)
[2018-11-27 05:39] LABS: CALCIUM 8.2 mg/dL (8.5-10.1); CREATININE 0.7 mg/dL (0.6-1.0); GFR 85.1; POTASSIUM 3.8 mmol/L (3.5-5.1)
[2018-11-27 07:00] VITALS: BP 128/63
[2018-11-27] MEDS: ATENOLOL 50 MG TABLET. PO SCH (09:00)
[2018-11-27] MEDS: ONDANSETRON PF 4 MG/2 ML VIAL. IV PRN (09:39)
[2018-11-27 10:14] LABS: % BANDS 1 % (0-9); % LYMPHS 6 % (24-48); % MONOS 3 % (0-10); % SEGS 90 % (35-66); PLT ESTIMATE ADEQUATE (ADEQUATE)
--- NOTE | 2018-11-27 10:17 | PDOC ---
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 ADMITTED IV FLUID SUPPORT IV PAIN CONTROL NPO DVT PROPHYLAXIS echo cardiology consult mg bmp 12 lead ekg 46 min pt exam, chart review, > 50% of time spent with exam, chart review, pt care coordination Vitals Vitals Vital Signs Date Time Temp Pulse Resp B/P (MAP) Pulse Ox O2 Delivery O2 Flow Rate FiO2 11/27/18 09:30 16 94 Room Air 3.0 11/27/18 09:00 55 128/63 11/27/18 07:00 97.9 97.9 Physical Exam General: Alert, Oriented X3, Cooperative, mild distress Heart: Regular rate, Normal S1, Normal S2, No murmurs Lungs: Clear Abdomen: Soft (tender in right lower quadrant with palpation), No hepatosplenomegaly Extremities: No clubbing, No cyanosis Skin: No rashes, No breakdown Labs LABS Laboratory Tests Test 11/27/18 04:45 White Blood Count 8.7 x10^3/uL (4.0-11.0) Red Blood Count 3.84 x10^6/uL (3.50-5.40) Hemoglobin 11.8 g/dL (12.0-15.5) Hematocrit 35.0 % (36.0-47.0) Mean Corpuscular Volume 91 fL (79-100) Mean Corpuscular Hemoglobin 31 pg (25-35) Mean Corpuscular Hemoglobin Concent 34 g/dL (31-37) Red Cell Distribution Width 13.5 % (11.5-14.5) Platelet Count 201 x10^3/uL (140-400) Neutrophils (%) (Auto) 85 % (31-73) Lymphocytes (%) (Auto) 10 % (24-48) Monocytes (%) (Auto) 5 % (0-9) Eosinophils (%) (Auto) 0 % (0-3) Basophils (%) (Auto) 0 % (0-3) Neutrophils # (Auto) 7.4 x10^3uL (1.8-7.7) Lymphocytes # (Auto) 0.8 x10^3/uL (1.0-4.8) Monocytes # (Auto) 0.4 x10^3/uL (0.0-1.1) Eosinophils # (Auto) 0.0 x10^3/uL (0.0-0.7) Basophils # (Auto) 0.0 x10^3/uL (0.0-0.2) Segmented Neutrophils % 90 % (35-66) Band Neutrophils % 1 % (0-9) Lymphocytes % 6 % (24-48) Monocytes % 3 % (0-10) Platelet Estimate Adequate (ADEQUATE) Sodium Level 141 mmol/L (136-145) Potassium Level 3.8 mmol/L (3.5-5.1) Chloride Level 105 mmol/L (98-107) Carbon Dioxide Level 27 mmol/L (21-32) Anion Gap 9 (6-14) Blood Urea Nitrogen 10 mg/dL (7-20) Creatinine 0.7 mg/dL (0.6-1.0) Estimated GFR (Cockcroft-Gault) 85.1 Glucose Level 157 mg/dL (70-99) Calcium Level 8.2 mg/dL (8.5-10.1) Assessment and Plan Assessmemt and Plan Problems Medical Problems: (1) Acute appendicitis Status: Acute Comment Review of Relevant I have reviewed the following items [place] (where applicable) has been applied. Labs Laboratory Tests Test 11/25/18 20:28 11/27/18 04:45 White Blood Count 7.7 x10^3/uL (4.0-11.0) 8.7 x10^3/uL (4.0-11.0) Red Blood Count 4.45 x10^6/uL (3.50-5.40) 3.84 x10^6/uL (3.50-5.40) Hemoglobin 13.5 g/dL (12.0-15.5) 11.8 g/dL (12.0-15.5) Hematocrit 40.4 % (36.0-47.0) 35.0 % (36.0-47.0) Mean Corpuscular Volume 91 fL (79-100) 91 fL (79-100) Mean Corpuscular Hemoglobin 30 pg (25-35) 31 pg (25-35) Mean Corpuscular Hemoglobin Concent 33 g/dL (31-37) 34 g/dL (31-37) Red Cell Distribution Width 13.7 % (11.5-14.5) 13.5 % (11.5-14.5) Platelet Count 198 x10^3/uL (140-400) 201 x10^3/uL (140-400) Neutrophils (%) (Auto) 66 % (31-73) 85 % (31-73) Lymphocytes (%) (Auto) 25 % (24-48) 10 % (24-48) Monocytes (%) (Auto) 7 % (0-9) 5 % (0-9) Eosinophils (%) (Auto) 2 % (0-3) 0 % (0-3) Basophils (%) (Auto) 1 % (0-3) 0 % (0-3) Neutrophils # (Auto) 5.1 x10^3uL (1.8-7.7) 7.4 x10^3uL (1.8-7.7) Lymphocytes # (Auto) 1.9 x10^3/uL (1.0-4.8) 0.8 x10^3/uL (1.0-4.8) Monocytes # (Auto) 0.5 x10^3/uL (0.0-1.1) 0.4 x10^3/uL (0.0-1.1) Eosinophils # (Auto) 0.1 x10^3/uL (0.0-0.7) 0.0 x10^3/uL (0.0-0.7) Basophils # (Auto) 0.0 x10^3/uL (0.0-0.2) 0.0 x10^3/uL (0.0-0.2) Urine Collection Type Unknown Urine Color Yellow Urine Clarity Clear Urine pH 6.0 Urine Specific [place] >=1.030 Urine Protein Negative mg/dL (NEG-TRACE) Urine Glucose (UA) Negative mg/dL (NEG) Urine Ketones (Stick) 15 mg/dL (NEG) Urine Blood Negative (NEG) Urine Nitrite Negative (NEG) Urine Bilirubin Negative (NEG) Urine Urobilinogen Dipstick 0.2 mg/dL (0.2 mg/dL) Urine Leukocyte Esterase Negative (NEG) Urine RBC Occ /HPF (0-2) Urine WBC 1-4 /HPF (0-4) Urine Squamous Epithelial Cells Few /LPF Urine Bacteria 0 /HPF (0-FEW) Sodium Level 136 mmol/L (136-145) 141 mmol/L (136-145) Potassium Level 3.5 mmol/L (3.5-5.1) 3.8 mmol/L (3.5-5.1) Chloride Level 100 mmol/L (98-107) 105 mmol/L (98-107) Carbon Dioxide Level 25 mmol/L (21-32) 27 mmol/L (21-32) Anion Gap 11 (6-14) 9 (6-14) Blood Urea Nitrogen 9 mg/dL (7-20) 10 mg/dL (7-20) Creatinine 0.6 mg/dL (0.6-1.0) 0.7 mg/dL (0.6-1.0) Estimated GFR (Cockcroft-Gault) 101.6 85.1 BUN/Creatinine Ratio 15 (6-20) Glucose Level 108 mg/dL (70-99) 157 mg/dL (70-99) Calcium Level 9.3 mg/dL (8.5-10.1) 8.2 mg/dL (8.5-10.1) Total Bilirubin 1.2 mg/dL (0.2-1.0) Aspartate Amino Transf (AST/SGOT) 28 U/L (15-37) Alanine Aminotransferase (ALT/SGPT) 32 U/L (14-59) Alkaline Phosphatase 112 U/L (46-116) Total Protein 7.6 g/dL (6.4-8.2) Albumin 3.8 g/dL (3.4-5.0) Albumin/Globulin Ratio 1.0 (1.0-1.7) Lipase 68 U/L (73-393) Segmented Neutrophils % 90 % (35-66) Band Neutrophils % 1 % (0-9) Lymphocytes % 6 % (24-48) Monocytes % 3 % (0-10) Platelet Estimate Adequate (ADEQUATE) Laboratory Tests Test 11/27/18 04:45 White Blood Count 8.7 x10^3/uL (4.0-11.0) Red Blood Count 3.84 x10^6/uL (3.50-5.40) Hemoglobin 11.8 g/dL (12.0-15.5) Hematocrit 35.0 % (36.0-47.0) Mean Corpuscular Volume 91 fL (79-100) Mean Corpuscular Hemoglobin 31 pg (25-35) Mean Corpuscular Hemoglobin Concent 34 g/dL (31-37) Red Cell Distribution Width 13.5 % (11.5-14.5) Platelet Count 201 x10^3/uL (140-400) Neutrophils (%) (Auto) 85 % (31-73) Lymphocytes (%) (Auto) 10 % (24-48) Monocytes (%) (Auto) 5 % (0-9) Eosinophils (%) (Auto) 0 % (0-3) Basophils (%) (Auto) 0 % (0-3) Neutrophils # (Auto) 7.4 x10^3uL (1.8-7.7) Lymphocytes # (Auto) 0.8 x10^3/uL (1.0-4.8) Monocytes # (Auto) 0.4 x10^3/uL (0.0-1.1) Eosinophils # (Auto) 0.0 x10^3/uL (0.0-0.7) Basophils # (Auto) 0.0 x10^3/uL (0.0-0.2) Segmented Neutrophils % 90 % (35-66) Band Neutrophils % 1 % (0-9) Lymphocytes % 6 % (24-48) Monocytes % 3 % (0-10) Platelet Estimate Adequate (ADEQUATE) Sodium Level 141 mmol/L (136-145) Potassium Level 3.8 mmol/L (3.5-5.1) Chloride Level 105 mmol/L (98-107) Carbon Dioxide Level 27 mmol/L (21-32) Anion Gap 9 (6-14) Blood Urea Nitrogen 10 mg/dL (7-20) Creatinine 0.7 mg/dL (0.6-1.0) Estimated GFR (Cockcroft-Gault) 85.1 Glucose Level 157 mg/dL (70-99) Calcium Level 8.2 mg/dL (8.5-10.1) Medications Current Medications Hydromorphone HCl (Dilaudid) 0.5 mg PRN Q15MIN PRN IV/SQ PAIN GREATER THAN 3/ 10 Last administered on 11/25/18at 20:37; Start 11/25/18 at 20:30; Stop 11/26/18 at 20:29; Status DC Sodium Chloride 1,000 ml @ 100 mls/hr Q10H IV Last administered on 11/25/18at 20:35; Start 11/25/18 at 20:21; Stop 11/26/18 at 06:20; Status DC Ondansetron HCl (Zofran) 4 mg 1X ONCE IV Last administered on 11/25/18at 20:36 ; Start 11/25/18 at 20:30; Stop 11/25/18 at 20:31; Status DC Piperacillin Sod/ Tazobactam Sod 4.5 gm/Sodium Chloride 100 ml @ 200 mls/hr 1X ONCE IV Last administered on 11/25/18at 20:55; Start 11/25/18 at 20:30; Stop 11/25/18 at 20:59; Status DC Hydromorphone HCl (Dilaudid) 0.5 mg 1X ONCE IV ; Start 11/25/18 at 22:30; Stop 11/26/18 at 01:32; Status DC Fentanyl Citrate (Fentanyl 2ml Vial) 50 mcg PRN Q2HRS PRN IV SEVERE PAIN Last administered on 11/26/18at 20:29; Start 11/26/18 at 01:45 Ondansetron HCl (Zofran) 4 mg PRN Q6HRS PRN IV NAUSEA/VOMITING 1ST CHOICE Last administered on 11/27/18at 09:39; Start 11/26/18 at 02:00 Piperacillin Sod/ Tazobactam Sod 3.375 gm/Sodium Chloride 50 ml @ 100 mls/hr Q6HRS IV Last administered on 11/27/18at 05:26; Start 11/26/18 at 00:00 Sodium Chloride 1,000 ml @ 100 mls/hr Q10H IV Last administered on 11/26/18at 20:25; Start 11/26/18 at 00:00 Ondansetron HCl (Zofran) 4 mg PRN Q6HRS PRN IV NAUSEA/VOMITING; Start 11/26/18 at 06:45; Stop 11/27/18 at 05:03; Status DC Fentanyl Citrate (Fentanyl 2ml Vial) 25 mcg PRN Q5MIN PRN IV MILD PAIN; Start 11/26/18 at 06:45; Stop 11/27/18 at 05:03; Status DC Fentanyl Citrate (Fentanyl 2ml Vial) 50 mcg PRN Q5MIN PRN IV MODERATE TO SEVERE PAIN Last administered on 11/26/18at 10:15; Start 11/26/18 at 06:45; Stop 11/27/18 at 05:03; Status DC Morphine Sulfate (Morphine Sulfate) 1 mg PRN Q10MIN PRN IV SEVERE PAIN; Start 11/26/18 at 06:45; Stop 11/27/18 at 05:03; Status DC Ringer's Solution 1,000 ml @ 30 mls/hr Q24H IV ; Start 11/26/18 at 06:36; Stop 11/26/18 at 18:35; Status DC Lidocaine HCl (Xylocaine-Mpf 1% 2ml Vial) 2 ml 1X PRN PRN ID IV START; Start at 06:45; Stop 11/27/18 at 05:03; Status DC Hydromorphone HCl (Dilaudid) 0.5 mg PRN Q10MIN PRN IV SEV PAIN, Second choice; Start 11/26/18 at 06:45; Stop 11/27/18 at 05:03; Status DC Prochlorperazine Edisylate (Compazine) 5 mg PACU PRN PRN IV NAUSEA, MRX1; Start 11/26/18 at 06:45; Stop 11/27/18 at 05:03; Status DC Propofol 20 ml @ As Directed STK-MED ONCE IV ; Start 11/26/18 at 07:04; Stop at 07:05; Status DC Lidocaine HCl (Lidocaine Pf 2% Vial) 5 ml STK-MED ONCE .ROUTE ; Start 11/26/18 at 07:04; Stop 11/26/18 at 07:05; Status DC Succinylcholine Chloride (Anectine) 200 mg STK-MED ONCE .ROUTE ; Start 11/26/18 at 07:04; Stop 11/26/18 at 07:05; Status DC Rocuronium [place] (Zemuron) 50 mg STK-MED ONCE .ROUTE ; Start 11/26/18 at 07:04 ; Stop 11/26/18 at 07:05; Status DC Fentanyl Citrate (Fentanyl 2ml Vial) 100 mcg STK-MED ONCE .ROUTE ; Start at 07:05; Stop 4/16/19 at 07:06; Status DC Bupivacaine HCl/ Epinephrine Bitart (Sensorcain-Mpf Epi 0.5%-1:[id number]) 30 ml STK -MED ONCE .ROUTE Last administered on 11/26/18at 07:57; Start 11/26/18 at 06:26 ; Stop 11/26/18 at 07:26; Status DC Dexamethasone Sodium Phosphate (Decadron) 20 mg STK-MED ONCE .ROUTE ; Start at 07:41; Stop 11/26/18 at 07:42; Status DC Ondansetron HCl (Zofran) 4 mg STK-MED ONCE .ROUTE ; Start 11/26/18 at 07:41; Stop 11/26/18 at 07:42; Status DC Desflurane (Suprane) 30 ml STK-MED ONCE IH ; Start 11/26/18 at 07:41; Stop 11/26 at 07:42; Status DC Neostigmine Methylsulfate (Neostigmine Methylsulfate) 5 mg STK-MED ONCE .ROUTE ; Start 11/26/18 at 07:51; Stop 11/26/18 at 07:52; Status DC Glycopyrrolate (Robinul) 1 mg STK-MED ONCE .ROUTE ; Start 11/26/18 at 07:51; Stop 11/26/18 at 07:52; Status DC Ketorolac Tromethamine (Toradol For Or Only) 30 mg STK-MED ONCE INJ ; Start at 08:49; Stop 11/26/18 at 08:50; Status DC Oxycodone/ Acetaminophen (Percocet 5/325) 1 tab PRN Q4HRS PRN PO PAIN; Start at 09:30 Oxycodone/ Acetaminophen (Percocet 5/325) 2 tab PRN Q4HRS PRN PO PAIN Last administered on 11/26/18at 18:02; Start 11/26/18 at 09:45 Fentanyl Citrate (Fentanyl 2ml Vial) 100 mcg STK-MED ONCE .ROUTE ; Start at 09:37; Stop 11/26/18 at 09:38; Status DC Atenolol (Tenormin) 50 mg DAILY PO Last administered on 11/26/18at 16:58; Start 11/26/18 at 17:00; Stop 11/27/18 at 09:04; Status DC Hydromorphone HCl (Dilaudid) 1 mg PRN Q3HRS PRN IV SEVERE PAIN Last administered on 11/27/18at 09:00; Start 11/26/18 at 20:45 Atenolol (Tenormin) 50 mg QHS PO ; Start 11/27/18 at 21:00 Active Scripts Active Reported Atenolol 50 Mg Tablet 1 Tab PO DAILY Vitals/I & O Vital Sign - Last 24 Hours 11/26/18 11/26/18 11/26/18 11/26/18 10:30 10:45 11:00 11:15 Pulse 72 72 73 80 Resp 20 20 20 20 B/P (MAP) 147/72 (97) 147/74 (98) 151/74 (99) 147/77 (100) Pulse Ox 95 96 97 97 O2 Delivery Nasal Cannula Nasal Cannula Nasal Cannula Nasal Cannula O2 Flow Rate 3.0 3.0 3.0 3.0 11/26/18 11/26/18 11/26/18 11/26/18 11:45 12:15 12:30 13:15 Pulse 79 79 74 Resp 20 20 20 B/P (MAP) 150/78 (102) 148/72 (97) 155/76 (102) Pulse Ox 98 98 98 O2 Delivery Nasal Cannula Nasal Cannula Nasal Cannula Nasal Cannula O2 Flow Rate 3.0 3.0 2.0 3.0 11/26/18 11/26/18 11/26/18 11/26/18 14:47 16:58 19:00 19:02 Temp 98.4 99.0 98.4 99.0 Pulse 78 78 74 Resp 20 20 B/P (MAP) 168/83 (111) 168/83 120/63 (82) Pulse Ox 95 93 95 O2 Delivery Room Air Nasal Cannula 11/26/18 11/26/18 11/26/18 11/26/18 20:00 20:29 20:59 21:59 Resp 18 Pulse Ox 95 95 95 O2 Delivery Room Air Nasal Cannula Room Air Nasal Cannula 11/26/18 11/27/18 11/27/18 11/27/18 23:00 02:11 03:00 05:26 Temp 98.1 97.9 98.1 97.9 Pulse 18 61 Resp 18 18 18 B/P (MAP) 109/61 (77) 132/62 (85) Pulse Ox 94 95 91 91 O2 Delivery Room Air Room Air O2 Flow Rate 3.0 11/27/18 11/27/18 11/27/18 11/27/18 07:00 09:00 09:00 09:30 Temp 97.9 97.9 Pulse 55 55 Resp 18 16 B/P (MAP) 128/63 (84) 128/63 Pulse Ox 94 94 94 O2 Delivery Room Air Room Air Room Air O2 Flow Rate 3.0 3.0 Intake and Output 11/26/18 11/26/18 11/27/18 14:59 22:59 06:59 Intake Total 1200 ml 500 ml 800 ml Output Total 120 ml 50 ml Balance 1080 ml 450 ml 800 ml ABDIRIZAK HINES MD Nov 27, 2018 10:17
[2018-11-27 11:00] VITALS: BP 134/56
--- NOTE | 2018-11-27 11:33 | EKG ---
[facility] [address] [place] [address] Test Date: 2018-11-27 Test Time: 11:05:09 Pat Name: WILMA MANUEL Department: Room: [facility] Gender: F [employer]: : 1955 Requested By: ABDIRIZAK HINES Order Number: [id number] Reading MD: Tino Zhao Measurements Intervals [place] Rate: 52 P: 28 CO: 208 QRS: 29 QRSD: 82 T: 31 QT: 426 QTc: 401 Interpretive Statements SINUS RHYTHM NORMAL ECG No previous ECG available for comparison Electronically Signed On 12-02-2018 13:15:28 CDT by Tino Zhao
[2018-11-27] MEDS: PROCHLORPERAZINE 5 MG TABLET. PO PRN (11:37)
[2018-11-27] MEDS: DOCUSATE SODIUM 100 MG CAPSULE. PO SCH ×2 (11:37→20:54)
[2018-11-27] MEDS ORDERED: hydrALAZINE 20 MG/ML VIAL. IVP PRN (12:15)
--- NOTE | 2018-11-27 12:32 | PDOC2 ---
CARMEN MELISSA CHIEF COMMUNICATIONS OFFICER 11/27/18 1232: CARDIAC CONSULT DATE OF CONSULT Date of Consult DATE: 11/27/18 TIME: 12:06 REASON FOR CONSULT Reason for Consult: 3-6 sec pause REFERRING PHYSICIAN Referring Physician: Fullbright SOURCE Source: Chart review, Patient HISTORY OF PRESENT ILLNESS HISTORY OF PRESENT ILLNESS This is a pleasant 63 yo female admitted for complains of abdominal pain. After further eval she was noted with acute appendicitis and had a surgical removal. Her pain is currently controlled. She takes Atenolol at home for HTN and yesterday post operatively she was noted with high grade block which then continued on with pause events overnight. No symptoms of CP, SOA, dizziness or passing prior to coming in and as an inpt. Denies any past cardiac disease or arrhythmias. PAST MEDICAL HISTORY Cardiovascular: No pertinent hx Pulmonary: No pertinent hx CENTRAL NERVOUS SYSTEM: Other (No pertinent history) GI: Diverticulosis Heme/Onc: No pertinent hx Hepatobiliary: No pertinent hx Psych: No pertinent hx Musculoskeletal: low back pain, Osteoarthritis Rheumatologic: No pertinent hx Infectious disease: No pertinent hx ENT: No pertinent hx Renal/: No pertinent hx Endocrine: No pertinent hx Dermatology: No pertinent hx PAST SURGICAL HISTORY Past Surgical History: , Other (right thumb surgery, lower back surgery; skin Ca removal) FAMILY HISTORY Family History: Heart Disease (father) SOCIAL HISTORY Smoke: <1 pack per day ALCOHOL: none Drugs: None Lives: with Family CURRENT MEDICATIONS CURRENT MEDICATIONS Current Medications Medications (Trade) Dose Ordered Sig/Carol Route PRN Reason Start Time Stop Time Status Last Admin Dose Admin Atenolol (Tenormin) 50 mg DAILY PO 11/26/18 17:00 11/27/18 09:04 DC 11/26/18 16:58 Hydromorphone HCl (Dilaudid) 1 mg PRN Q3HRS PRN IV SEVERE PAIN 11/26/18 20:45 11/27/18 12:03 Prochlorperazine Maleate (Compazine) 5 mg PRN Q6HRS PRN PO NAUSEA/VOMITING 11/27/18 10:45 11/27/18 11:37 Docusate Sodium (Colace) 100 mg BID PO 11/27/18 11:00 11/27/18 11:37 ALLERGIES ALLERGIES: Coded Allergies: acyclovir (Verified Allergy, Intermediate, Swelling, 07/25/17) sulfamethoxazole (Verified Allergy, Intermediate, 07/25/17) trimethoprim (Verified Allergy, Intermediate, 07/25/17) ROS Review of System 14 point ROS evaluated with pertinent positives noted per HPI PHYSICAL EXAM General: Alert, Oriented X3, Cooperative, No acute distress HEENT: Atraumatic, Mucous membr. moist/pink Lungs: Clear to auscultation, Normal air movement Heart: Regular rate (SB), Normal S1, Normal S2, No murmurs Abdomen: Soft, No tenderness, Other (obese; RLQ surgical incision) Extremities: No cyanosis, No edema Skin: No breakdown, No significant lesion Neuro: Normal speech, Sensation intact Psych/Mental Status: Mental status NL, Other (anxious) MUSCULOSKELETAL: Osteoarthritic changes both hands VITALS VITALS Vital Signs Date Time Temp Pulse Resp B/P (MAP) Pulse Ox O2 Delivery O2 Flow Rate FiO2 11/27/18 12:03 92 Room Air 3.0 11/27/18 11:00 98.0 58 16 134/56 (82) 98.0 LABS Lab: Laboratory Tests Test 11/27/18 04:45 White Blood Count 8.7 x10^3/uL (4.0-11.0) Red Blood Count 3.84 x10^6/uL (3.50-5.40) Hemoglobin 11.8 g/dL (12.0-15.5) Hematocrit 35.0 % (36.0-47.0) Mean Corpuscular Volume 91 fL (79-100) Mean Corpuscular Hemoglobin 31 pg (25-35) Mean Corpuscular Hemoglobin Concent 34 g/dL (31-37) Red Cell Distribution Width 13.5 % (11.5-14.5) Platelet Count 201 x10^3/uL (140-400) Neutrophils (%) (Auto) 85 % (31-73) Lymphocytes (%) (Auto) 10 % (24-48) Monocytes (%) (Auto) 5 % (0-9) Eosinophils (%) (Auto) 0 % (0-3) Basophils (%) (Auto) 0 % (0-3) Neutrophils # (Auto) 7.4 x10^3uL (1.8-7.7) Lymphocytes # (Auto) 0.8 x10^3/uL (1.0-4.8) Monocytes # (Auto) 0.4 x10^3/uL (0.0-1.1) Eosinophils # (Auto) 0.0 x10^3/uL (0.0-0.7) Basophils # (Auto) 0.0 x10^3/uL (0.0-0.2) Segmented Neutrophils % 90 % (35-66) Band Neutrophils % 1 % (0-9) Lymphocytes % 6 % (24-48) Monocytes % 3 % (0-10) Platelet Estimate Adequate (ADEQUATE) Sodium Level 141 mmol/L (136-145) Potassium Level 3.8 mmol/L (3.5-5.1) Chloride Level 105 mmol/L (98-107) Carbon Dioxide Level 27 mmol/L (21-32) Anion Gap 9 (6-14) Blood Urea Nitrogen 10 mg/dL (7-20) Creatinine 0.7 mg/dL (0.6-1.0) Estimated GFR (Cockcroft-Gault) 85.1 Glucose Level 157 mg/dL (70-99) Calcium Level 8.2 mg/dL (8.5-10.1) STRESS TEST STRESS TEST Conclusion 1. No evidence of EKG changes with stress testing. 2. Normal perfusion at stress/rest. 3. Low risk study. 4. EF > 60%. DATE: 07/04/17 1130 ASSESSMENT/PLAN ASSESSMENT/PLAN 1. High grade block with intermittent pauses; last atenolol dose 5PM with noted perioperative meds including opioids. BP stable. 2. Acute appendicitis S/P Lap appendectomy POD#1. 3. HTN: controlled 4. Morbid obesity Recommendations 1. DC atenolol. Check Mg and TSH. TTE today 2. Transfer to CVC if bed is available. 3. QTc 401. Asymptomatic so far and will monitor rhythm. Currently SB possibly SSS and will likely need a PPM but will monitor in the next 24-48 hours post op and note post surgical status. 4. Hydralazine IV PRN. MIGEL WALKER MD 11/27/18 4018: CARDIAC CONSULT ASSESSMENT/PLAN ASSESSMENT/PLAN Patient seen and examined. Agree with BRIM BUSTER's assessment and plan. Transient episodes of complete heart block noted ? vagally mediated Agree with holding beta blockers and monitor telemetry If no further episodes, we will consider event monitor as outpatient 2D echo showed normal LV function Continue post op care per surgical team Thank you for your consultation CARMEN MELISSA CHIEF COMMUNICATIONS OFFICER Nov 27, 2018 12:32 MIGEL WALKER MD Nov 27, 2018 21:48
--- NOTE | 2018-11-27 13:00 | NUR ---
Patient showed several pauses >3 seconds on the heart monitor record this morning. Patient stated she had not felt any different and denied chest pain or dizziness. notified and cardiology consulted. Victor Manuel LOGAN given event strips and he spoke with Dr. Zhao. Patient transferred to CV for closer monitoring. Report called to ARTIS Ellsworth.
--- NOTE | 2018-11-27 13:15 | PDOC ---
PROGRESS NOTES Subjective Subjective some pain Objective Objective Vital Signs Date Time Temp Pulse Resp B/P (MAP) Pulse Ox O2 Delivery O2 Flow Rate FiO2 11/27/18 12:03 92 Room Air 3.0 11/27/18 11:00 98.0 58 16 134/56 (82) 98.0 Intake and Output 11/27/18 07:00 Intake Total 2500 ml Output Total 170 ml Balance 2330 ml Intake Oral 1300 ml IV Total 1200 ml Output Urine Total 100 ml Drainage Total 50 ml Estimated Blood Loss 20 ml # Voids 1 Physical Exam Physical Exam abdomen soft, DENY serosang Assessment Assessment Problems Medical Problems: (1) Acute appendicitis Status: Acute Plan Plan of Care Perforated appendicitis, continue with abx, DENY drainage; Cardiac eval underway Comment Review of Relevant I have reviewed the following items [place] (where applicable) has been applied. Labs Laboratory Tests Test 11/25/18 20:28 11/27/18 04:45 White Blood Count 7.7 x10^3/uL (4.0-11.0) 8.7 x10^3/uL (4.0-11.0) Red Blood Count 4.45 x10^6/uL (3.50-5.40) 3.84 x10^6/uL (3.50-5.40) Hemoglobin 13.5 g/dL (12.0-15.5) 11.8 g/dL (12.0-15.5) Hematocrit 40.4 % (36.0-47.0) 35.0 % (36.0-47.0) Mean Corpuscular Volume 91 fL (79-100) 91 fL (79-100) Mean Corpuscular Hemoglobin 30 pg (25-35) 31 pg (25-35) Mean Corpuscular Hemoglobin Concent 33 g/dL (31-37) 34 g/dL (31-37) Red Cell Distribution Width 13.7 % (11.5-14.5) 13.5 % (11.5-14.5) Platelet Count 198 x10^3/uL (140-400) 201 x10^3/uL (140-400) Neutrophils (%) (Auto) 66 % (31-73) 85 % (31-73) Lymphocytes (%) (Auto) 25 % (24-48) 10 % (24-48) Monocytes (%) (Auto) 7 % (0-9) 5 % (0-9) Eosinophils (%) (Auto) 2 % (0-3) 0 % (0-3) Basophils (%) (Auto) 1 % (0-3) 0 % (0-3) Neutrophils # (Auto) 5.1 x10^3uL (1.8-7.7) 7.4 x10^3uL (1.8-7.7) Lymphocytes # (Auto) 1.9 x10^3/uL (1.0-4.8) 0.8 x10^3/uL (1.0-4.8) Monocytes # (Auto) 0.5 x10^3/uL (0.0-1.1) 0.4 x10^3/uL (0.0-1.1) Eosinophils # (Auto) 0.1 x10^3/uL (0.0-0.7) 0.0 x10^3/uL (0.0-0.7) Basophils # (Auto) 0.0 x10^3/uL (0.0-0.2) 0.0 x10^3/uL (0.0-0.2) Urine Collection Type Unknown Urine Color Yellow Urine Clarity Clear Urine pH 6.0 Urine Specific [place] >=1.030 Urine Protein Negative mg/dL (NEG-TRACE) Urine Glucose (UA) Negative mg/dL (NEG) Urine Ketones (Stick) 15 mg/dL (NEG) Urine Blood Negative (NEG) Urine Nitrite Negative (NEG) Urine Bilirubin Negative (NEG) Urine Urobilinogen Dipstick 0.2 mg/dL (0.2 mg/dL) Urine Leukocyte Esterase Negative (NEG) Urine RBC Occ /HPF (0-2) Urine WBC 1-4 /HPF (0-4) Urine Squamous Epithelial Cells Few /LPF Urine Bacteria 0 /HPF (0-FEW) Sodium Level 136 mmol/L (136-145) 141 mmol/L (136-145) Potassium Level 3.5 mmol/L (3.5-5.1) 3.8 mmol/L (3.5-5.1) Chloride Level 100 mmol/L (98-107) 105 mmol/L (98-107) Carbon Dioxide Level 25 mmol/L (21-32) 27 mmol/L (21-32) Anion Gap 11 (6-14) 9 (6-14) Blood Urea Nitrogen 9 mg/dL (7-20) 10 mg/dL (7-20) Creatinine 0.6 mg/dL (0.6-1.0) 0.7 mg/dL (0.6-1.0) Estimated GFR (Cockcroft-Gault) 101.6 85.1 BUN/Creatinine Ratio 15 (6-20) Glucose Level 108 mg/dL (70-99) 157 mg/dL (70-99) Calcium Level 9.3 mg/dL (8.5-10.1) 8.2 mg/dL (8.5-10.1) Total Bilirubin 1.2 mg/dL (0.2-1.0) Aspartate Amino Transf (AST/SGOT) 28 U/L (15-37) Alanine Aminotransferase (ALT/SGPT) 32 U/L (14-59) Alkaline Phosphatase 112 U/L (46-116) Total Protein 7.6 g/dL (6.4-8.2) Albumin 3.8 g/dL (3.4-5.0) Albumin/Globulin Ratio 1.0 (1.0-1.7) Lipase 68 U/L (73-393) Segmented Neutrophils % 90 % (35-66) Band Neutrophils % 1 % (0-9) Lymphocytes % 6 % (24-48) Monocytes % 3 % (0-10) Platelet Estimate Adequate (ADEQUATE) Magnesium Level 2.2 mg/dL (1.8-2.4) Thyroid Stimulating Hormone (TSH) 0.476 uIU/mL (0.358-3.74) Laboratory Tests Test 11/27/18 04:45 White Blood Count 8.7 x10^3/uL (4.0-11.0) Red Blood Count 3.84 x10^6/uL (3.50-5.40) Hemoglobin 11.8 g/dL (12.0-15.5) Hematocrit 35.0 % (36.0-47.0) Mean Corpuscular Volume 91 fL (79-100) Mean Corpuscular Hemoglobin 31 pg (25-35) Mean Corpuscular Hemoglobin Concent 34 g/dL (31-37) Red Cell Distribution Width 13.5 % (11.5-14.5) Platelet Count 201 x10^3/uL (140-400) Neutrophils (%) (Auto) 85 % (31-73) Lymphocytes (%) (Auto) 10 % (24-48) Monocytes (%) (Auto) 5 % (0-9) Eosinophils (%) (Auto) 0 % (0-3) Basophils (%) (Auto) 0 % (0-3) Neutrophils # (Auto) 7.4 x10^3uL (1.8-7.7) Lymphocytes # (Auto) 0.8 x10^3/uL (1.0-4.8) Monocytes # (Auto) 0.4 x10^3/uL (0.0-1.1) Eosinophils # (Auto) 0.0 x10^3/uL (0.0-0.7) Basophils # (Auto) 0.0 x10^3/uL (0.0-0.2) Segmented Neutrophils % 90 % (35-66) Band Neutrophils % 1 % (0-9) Lymphocytes % 6 % (24-48) Monocytes % 3 % (0-10) Platelet Estimate Adequate (ADEQUATE) Sodium Level 141 mmol/L (136-145) Potassium Level 3.8 mmol/L (3.5-5.1) Chloride Level 105 mmol/L (98-107) Carbon Dioxide Level 27 mmol/L (21-32) Anion Gap 9 (6-14) Blood Urea Nitrogen 10 mg/dL (7-20) Creatinine 0.7 mg/dL (0.6-1.0) Estimated GFR (Cockcroft-Gault) 85.1 Glucose Level 157 mg/dL (70-99) Calcium Level 8.2 mg/dL (8.5-10.1) Magnesium Level 2.2 mg/dL (1.8-2.4) Thyroid Stimulating Hormone (TSH) 0.476 uIU/mL (0.358-3.74) Medications Current Medications Hydromorphone HCl (Dilaudid) 0.5 mg PRN Q15MIN PRN IV/SQ PAIN GREATER THAN 3/ 10 Last administered on 11/25/18at 20:37; Start 11/25/18 at 20:30; Stop 11/26/18 at 20:29; Status DC Sodium Chloride 1,000 ml @ 100 mls/hr Q10H IV Last administered on 11/25/18at 20:35; Start 11/25/18 at 20:21; Stop 11/26/18 at 06:20; Status DC Ondansetron HCl (Zofran) 4 mg 1X ONCE IV Last administered on 11/25/18at 20:36 ; Start 11/25/18 at 20:30; Stop 11/25/18 at 20:31; Status DC Piperacillin Sod/ Tazobactam Sod 4.5 gm/Sodium Chloride 100 ml @ 200 mls/hr 1X ONCE IV Last administered on 11/25/18at 20:55; Start 11/25/18 at 20:30; Stop 11/25/18 at 20:59; Status DC Hydromorphone HCl (Dilaudid) 0.5 mg 1X ONCE IV ; Start 11/25/18 at 22:30; Stop 11/26/18 at 01:32; Status DC Fentanyl Citrate (Fentanyl 2ml Vial) 50 mcg PRN Q2HRS PRN IV SEVERE PAIN Last administered on 11/26/18 20:29; Start 11/26/18 at 01:45 Ondansetron HCl (Zofran) 4 mg PRN Q6HRS PRN IV NAUSEA/VOMITING 1ST CHOICE Last administered on 11/27/18at 09:39; Start 11/26/18 at 02:00 Piperacillin Sod/ Tazobactam Sod 3.375 gm/Sodium Chloride 50 ml @ 100 mls/hr Q6HRS IV Last administered on 11/27/18at 11:38; Start 11/26/18 at 00:00 Sodium Chloride 1,000 ml @ 100 mls/hr Q10H IV Last administered on 11/26/18at 20:25; Start 11/26/18 at 00:00 Ondansetron HCl (Zofran) 4 mg PRN Q6HRS PRN IV NAUSEA/VOMITING; Start 11/26/18 at 06:45; Stop 11/27/18 at 05:03; Status DC Fentanyl Citrate (Fentanyl 2ml Vial) 25 mcg PRN Q5MIN PRN IV MILD PAIN; Start 11/26/18 at 06:45; Stop 11/27/18 at 05:03; Status DC Fentanyl Citrate (Fentanyl 2ml Vial) 50 mcg PRN Q5MIN PRN IV MODERATE TO SEVERE PAIN Last administered on 11/26/18at 10:15; Start 11/26/18 at 06:45; Stop 11/27/18 at 05:03; Status DC Morphine Sulfate (Morphine Sulfate) 1 mg PRN Q10MIN PRN IV SEVERE PAIN; Start 11/26/18 at 06:45; Stop 11/27/18 at 05:03; Status DC Ringer's Solution 1,000 ml @ 30 mls/hr Q24H IV ; Start 11/26/18 at 06:36; Stop 11/26/18 at 18:35; Status DC Lidocaine HCl (Xylocaine-Mpf 1% 2ml Vial) 2 ml 1X PRN PRN ID IV START; Start at 06:45; Stop 11/27/18 at 05:03; Status DC Hydromorphone HCl (Dilaudid) 0.5 mg PRN Q10MIN PRN IV SEV PAIN, Second choice; Start 11/26/18 at 06:45; Stop 11/27/18 at 05:03; Status DC Prochlorperazine Edisylate (Compazine) 5 mg PACU PRN PRN IV NAUSEA, MRX1; Start 11/26/18 at 06:45; Stop 11/27/18 at 05:03; Status DC Propofol 20 ml @ As Directed STK-MED ONCE IV ; Start 11/26/18 at 07:04; Stop at 07:05; Status DC Lidocaine HCl (Lidocaine Pf 2% Vial) 5 ml STK-MED ONCE .ROUTE ; Start 11/26/18 at 07:04; Stop 11/26/18 at 07:05; Status DC Succinylcholine Chloride (Anectine) 200 mg STK-MED ONCE .ROUTE ; Start 11/26/18 at 07:04; Stop 11/26/18 at 07:05; Status DC Rocuronium Hensley (Zemuron) 50 mg STK-MED ONCE .ROUTE ; Start 11/26/18 at 07:04 ; Stop 11/26/18 at 07:05; Status DC Fentanyl Citrate (Fentanyl 2ml Vial) 100 mcg STK-MED ONCE .ROUTE ; Start at 07:05; Stop 11/26/18 at 07:06; Status DC Bupivacaine HCl/ Epinephrine Bitart (Sensorcain-Mpf Epi 0.5%-1:[id number]) 30 ml STK -MED ONCE .ROUTE Last administered on 11/26/18at 07:57; Start 11/26/18 at 06:26 ; Stop 11/26/18 at 07:26; Status DC Dexamethasone Sodium Phosphate (Decadron) 20 mg STK-MED ONCE .ROUTE ; Start at 07:41; Stop 11/26/18 at 07:42; Status DC Ondansetron HCl (Zofran) 4 mg STK-MED ONCE .ROUTE ; Start 11/26/18 at 07:41; Stop 11/26/18 at 07:42; Status DC Desflurane (Suprane) 30 ml STK-MED ONCE IH ; Start 11/26/18 at 07:41; Stop 11/26 at 07:42; Status DC Neostigmine Methylsulfate (Neostigmine Methylsulfate) 5 mg STK-MED ONCE .ROUTE ; Start 11/26/18 at 07:51; Stop 11/26/18 at 07:52; Status DC Glycopyrrolate (Robinul) 1 mg STK-MED ONCE .ROUTE ; Start 11/26/18 at 07:51; Stop 11/26/18 at 07:52; Status DC Ketorolac Tromethamine (Toradol For Or Only) 30 mg STK-MED ONCE INJ ; Start at 08:49; Stop 11/26/18 at 08:50; Status DC Oxycodone/ Acetaminophen (Percocet 5/325) 1 tab PRN Q4HRS PRN PO PAIN; Start at 09:30 Oxycodone/ Acetaminophen (Percocet 5/325) 2 tab PRN Q4HRS PRN PO PAIN Last administered on 11/26/18at 18:02; Start 11/26/18 at 09:45 Fentanyl Citrate (Fentanyl 2ml Vial) 100 mcg STK-MED ONCE .ROUTE ; Start at 09:37; Stop 11/26/18 at 09:38; Status DC Atenolol (Tenormin) 50 mg DAILY PO Last administered on 11/26/18at 16:58; Start 11/26/18 at 17:00; Stop 11/27/18 at 09:04; Status DC Hydromorphone HCl (Dilaudid) 1 mg PRN Q3HRS PRN IV SEVERE PAIN Last administered on 11/27/18at 12:03; Start 11/26/18 at 20:45 Atenolol (Tenormin) 50 mg QHS PO ; Start 11/27/18 at 21:00; Stop 11/27/18 at 21: 00; Status DC Prochlorperazine Maleate (Compazine) 5 mg PRN Q6HRS PRN PO NAUSEA/VOMITING Last administered on 11/27/18at 11:37; Start 11/27/18 at 10:45 Docusate Sodium (Colace) 100 mg BID PO Last administered on 11/27/18at 11:37; Start 11/27/18 at 11:00 Hydralazine HCl (Apresoline Inj) 10 mg PRN Q4HRS PRN IVP ELEVATED BP, SEE COMMENTS; Start 11/27/18 at 12:15 Active Scripts Active Reported Atenolol 50 Mg Tablet 1 Tab PO DAILY Vitals/I & O Vital Sign - Last 24 Hours 11/26/18 11/26/18 11/26/18 11/26/18 13:15 14:47 16:58 19:00 Temp 98.4 99.0 98.4 99.0 Pulse 74 78 78 74 Resp 20 20 20 B/P (MAP) 155/76 (102) 168/83 (111) 168/83 120/63 (82) Pulse Ox 98 95 93 O2 Delivery Nasal Cannula Room Air O2 Flow Rate 3.0 11/26/18 11/26/18 11/26/18 11/26/18 19:02 20:00 20:29 20:59 Pulse Ox 95 95 95 O2 Delivery Nasal Cannula Room Air Nasal Cannula Room Air 11/26/18 11/26/18 11/27/18 11/27/18 21:59 23:00 02:11 03:00 Temp 98.1 97.9 98.1 97.9 Pulse 18 61 Resp 18 18 18 B/P (MAP) 109/61 (77) 132/62 (85) Pulse Ox 95 94 95 91 O2 Delivery Nasal Cannula Room Air 11/27/18 11/27/18 11/27/18 11/27/18 05:26 07:00 09:00 09:00 Temp 97.9 97.9 Pulse 55 55 Resp 18 18 B/P (MAP) 128/63 (84) 128/63 Pulse Ox 91 94 94 O2 Delivery Room Air Room Air Room Air O2 Flow Rate 3.0 3.0 11/27/18 11/27/18 11/27/18 09:30 11:00 12:03 Temp 98.0 98.0 Pulse 58 Resp 16 16 B/P (MAP) 134/56 (82) Pulse Ox 94 92 92 O2 Delivery Room Air Room Air Room Air O2 Flow Rate 3.0 3.0 Intake and Output 11/26/18 11/26/18 11/27/18 15:00 23:00 07:00 Intake Total 1200 ml 500 ml 800 ml Output Total 120 ml 50 ml Balance 1080 ml 450 ml 800 ml BRUCE KWOK MD Nov 27, 2018 13:15
--- NOTE | 2018-11-27 13:30 | NUR ---
Pt arrives to unit via bed with family at bedside. Pt A&O x4. Pt has 1 telfa island dressing, shadowing seen, on upper abdomen and Gorge drain to LLQ, dressing CDI. Pt laying in bed with family member at bed side call light in reach.
[2018-11-27 14:17] VITALS: BP 147/53
[2018-11-27] MEDS: oxyCODONE/APAP 5/325 1 TAB TABLET PO PRN ×2 (14:59→19:41)
--- NOTE | 2018-11-27 15:13 | CARD ---
MR#: [id number] Date of Study: 11/27/2018 Ordering Physician: ABDIRIZAK HINES, Referring Physician: CANDIDO CASEY Tech: Dora Aguila ELLE APPROVED REPORT EXAM: Two-dimensional and M-mode echocardiogram with Doppler and color Doppler. Other Information Quality : Technically LimitedHR: 45bpm Rhythm : BradycardiaTechnically limited study due to body habitus. INDICATION Arrhythmia 2D DIMENSIONS RVDd3.3 (2.9-3.5cm)Left Atrium(2D)4.1 (1.6-4.0cm) IVSd1.1 (0.7-1.1cm)Aortic Root(2D)3.1 (2.0-3.7cm) LVDd5.4 (3.9-5.9cm)LVOT Diameter2.0 (1.8-2.4cm) PWd0.9 (0.7-1.1cm)LVDs4.2 (2.5-4.0cm) FS (%) 23.4 %SV66.5 ml M-Mode DIMENSIONS Left Atrium(MM)4.06 (2.5-4.0cm)Aortic Root3.32 (2.2-3.7cm) Aortic Valve AoV Peak Kin.133.6cm/sAoV VTI29.0cm AO Peak GR.7.1mmHgLVOT Peak Kin.115.8cm/s AO Mean GR.3mmHgAVA (VMAX)2.83cm2 YORDAN (VTI)2.80cm2 Mitral Valve MV E Kdvbbqhx403.7cm/sMV DECEL PLXS086dx MV A Vpsaaubz86.9cm/sE/A Ratio1.7 MV A Mrpdqcro090hk Pulmonary Valve PV Peak Hljapmlu129.1cm/s Tricuspid Valve TR P. Rksglyzp324ps/sRAP BJDTQNDN3gwVw TR Peak Gr.25puEvOMDE44ivPv Pulmonary Vein S1 Qxeyixfh34.6cm/sD2 Ktgqvosl25.3cm/s PVa zujqelhe06nsuq LEFT VENTRICLE The left ventricle is normal size. Proximal septal thickening is noted. Left ventricle systolic funct ion is normal. The Ejection Fraction is 55-60%. There is normal LV segmental wall motion. Transmitral Doppler flow pattern is Grade II-pseudonormal filling dynamics. RIGHT VENTRICLE The right ventricle is normal size. There is normal right ventricular wall thickness. The right ventr icular systolic function is normal. ATRIA The left atrium is mildly dilated. The right atrium size is normal. The interatrial septum is intact with no evidence for an atrial septal defect or patent foramen ovale as noted on 2-D or Doppler imagi ng. AORTIC VALVE The aortic valve is calcified but opens well. The aortic valve is trileaflet. Doppler and Color Flow revealed no significant aortic regurgitation. There is no significant aortic valvular stenosis. MITRAL VALVE The mitral valve is normal in structure and function. There is no evidence of mitral valve prolapse. There is no mitral valve stenosis. Doppler and Color-flow revealed trace mitral regurgitation. TRICUSPID VALVE The tricuspid valve is normal in structure and function. Doppler and Color Flow revealed trace tricus pid regurgitation. There is moderate pulmonary hypertension. The PA pressure was estimated at 48 mmHg . There is no tricuspid valve prolapse or vegetation. There is no tricuspid valve stenosis. PULMONIC VALVE The pulmonic valve is not well visualized. GREAT VESSELS The aortic root is normal in size. The ascending aorta is normal in size. The IVC is dilated and dedra apses >50% with inspiration. PERICARDIAL EFFUSION There is no evidence of significant pericardial effusion. Critical Notification Critical Value: No <Conclusion> Left ventricle systolic function is normal. The Ejection Fraction is 55-60%. There is normal LV segmental wall motion. The left atrium is mildly dilated. Trace mitral regurgitation. Trace tricuspid regurgitation. The PA pressure was estimated at 48 mmHg. There is no evidence of significant pericardial effusion. Signed by : Tino Zhao, Electronically Approved : 11/27/2018 15:13:31
--- NOTE | 2018-11-27 17:07 | PATHOLOGY ---
[facility] Accession Number: [id number] . 01 Material submitted: . appendix - APPENDIX . 01 Clinical history: . Appendicitis . 02 Diagnosis: Appendix, laparoscopic appendectomy: - Acute and chronic appendicitis. - Focal hyperplastic changes of appendiceal mucosa. - Fibrofatty obliteration of distal appendiceal lumen. (JPM:line producer; 11/27/2018) MBR/11/27/2018 . 02 Comment: The acute component of the appendiceal inflammatory process involves the base of the appendix. There is no evidence of malignancy. (JPM:line producer; 11/27/2018) . 02 Electronically signed: . Will Herrera MD, Pathologist NPI- [id number] . 01 Gross description: . The specimen is received in formalin, labeled "Kaley Hay, appendix", is an appendix measuring 5.0 cm in length and up to 1.0 cm diameter with abundantly attached yellow lobulated, disrupted mesoappendix measuring 4.7 x 1.8 x 1.0 cm. The proximal margin is open and the proximal serosa is inked black. The remaining serosa is bacon-brown, focally hemorrhagic towards the distal tip. The distal tip is hemorrhagic, edematous and partially disrupted. The distal tip and adjacent mesoappendix is inked blue. The distal tip is bisected to show a hemorrhagic and edematous wall with a 0.9 x 0.5 x 0.4 cm possible appendiceal tip within the mesoappendi. The wall is edematous with an average thickness of 0.2 cm. N[employer] tissue is submitted as follows: A1. Proximal margin and proximal and mid cross section A2-A3. Distal end with possible appendiceal tip, longitudinally bisected (SWS; 11/26/2018) SHS/SHS . 02 Pathologist provided ICD-10: K35.80, K36, K38.0 . 02 CPT . 187882 Specimen Comment: A courtesy copy of this report has been sent to Specimen Comment: [phone], , , . Specimen Comment: Report sent to ,DR RAMIREZ,DR CASEY / DR HYMAN Performed at: 01 [facility] [address] [place] [address] [id number] MD Rodrigo Ca MD Phone: [phone] Performed at: 02 [facility] [address] [place] [address] [id number] MD Will Herrera MD Phone: [phone]
[2018-11-27 19:00] VITALS: BP 168/74
[2018-11-27] MEDS ORDERED: ATENOLOL 50 MG TABLET. PO SCH (21:00)
[2018-11-27 23:00] VITALS: BP 156/70
--- NOTE | 2018-11-28 00:43 | NUR ---
Patient's gown wet from do drain site, dressing changed, noticeable increase in drainage output. Left message for Dr. Cr, awaiting return call.
[2018-11-28] MEDS: IV NORMAL SALINE 1000ML BAG 1,000 ML IV SCH ×3 (02:00→22:08)
[2018-11-28 03:00] VITALS: BP 148/82
[2018-11-28 04:46] LABS: BASO % 1 % (0-3); EOS # 0.1 x10^3/uL (0.0-0.7); EOS % 2 % (0-3); HEMATOCRIT 41.5 % (36.0-47.0); LYMPH # 1.3 x10^3/uL (1.0-4.8); LYMPH % 14 % (24-48); MEAN CORPUSCULAR HEMOGLOBIN 31 pg (25-35); MEAN CORPUSCULAR HGB CONC 34 g/dL (31-37); MEAN CORPUSCULAR VOLUME 91 fL (79-100); MONO # 0.6 x10^3/uL (0.0-1.1); MONO % 7 % (0-9); NEUT # 7.3 x10^3uL (1.8-7.7); NEUT % 77 % (31-73); PLATELET COUNT 227 x10^3/uL (140-400); RED BLOOD COUNT 4.55 x10^6/uL (3.50-5.40); RED CELL DISTRIBUTION WIDTH 13.5 % (11.5-14.5); WHITE BLOOD COUNT 9.5 x10^3/uL (4.0-11.0)
[2018-11-28 05:01] LABS: CALCIUM 8.6 mg/dL (8.5-10.1); CREATININE 0.7 mg/dL (0.6-1.0); GFR 85.1; POTASSIUM 3.4 mmol/L (3.5-5.1)
[2018-11-28] MEDS: PIPERACILLIN/TAZOBACTAM 3.375 GM in IV NORMAL SALINE 50ML 50 ML IV SCH ×3 (05:38→18:44)
[2018-11-28 07:38] VITALS: BP 134/82
[2018-11-28] MEDS: HYDROmorphone 2 MG/ML VIAL IV PRN (08:36)
[2018-11-28] MEDS: DOCUSATE SODIUM 100 MG CAPSULE. PO SCH ×2 (08:36→21:07)
--- NOTE | 2018-11-28 09:14 | PDOC ---
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 Patient states that initially she thought she was constipated. She states that she had taken a Dulcolax without any improvement. She states that Sunday symptoms had worsened and again Sunday even worse. She was seen by her primary care doctor today who had ordered an outpatient CT scan and patient presents with imaging report from diagnostic radiology demonstrating a dilated appendix consistent with appendicitis. S/p appendectomy 11/27 with signs of near perforation, drain left in, draining serosanguineous material. Passing flatus, no BM, pain reasonably controlled. Plan: Cont zosyn, will need 5-7 days augmentin on d/c when ok with surgery. Another day of inpatient monitoring would be appropriate. Ok for gentle bowel regimen Vitals Vitals Vital Signs Date Time Temp Pulse Resp B/P (MAP) Pulse Ox O2 Delivery O2 Flow Rate FiO2 11/28/18 08:36 15 95 Room Air 3.0 11/28/18 07:38 98.9 84 134/82 (99) 98.9 Physical Exam General: Alert, Oriented X3, Cooperative, No acute distress Heart: Regular rate (SB), Normal S1, Normal S2, No murmurs Lungs: Clear Abdomen: Soft, No tenderness, Other (obese; RLQ surgical incision) Extremities: No cyanosis, No edema Skin: No breakdown, No significant lesion Labs LABS Laboratory Tests Test 11/28/18 04:00 White Blood Count 9.5 x10^3/uL (4.0-11.0) Red Blood Count 4.55 x10^6/uL (3.50-5.40) Hemoglobin 14.0 g/dL (12.0-15.5) Hematocrit 41.5 % (36.0-47.0) Mean Corpuscular Volume 91 fL (79-100) Mean Corpuscular Hemoglobin 31 pg (25-35) Mean Corpuscular Hemoglobin Concent 34 g/dL (31-37) Red Cell Distribution Width 13.5 % (11.5-14.5) Platelet Count 227 x10^3/uL (140-400) Neutrophils (%) (Auto) 77 % (31-73) Lymphocytes (%) (Auto) 14 % (24-48) Monocytes (%) (Auto) 7 % (0-9) Eosinophils (%) (Auto) 2 % (0-3) Basophils (%) (Auto) 1 % (0-3) Neutrophils # (Auto) 7.3 x10^3uL (1.8-7.7) Lymphocytes # (Auto) 1.3 x10^3/uL (1.0-4.8) Monocytes # (Auto) 0.6 x10^3/uL (0.0-1.1) Eosinophils # (Auto) 0.1 x10^3/uL (0.0-0.7) Basophils # (Auto) 0.0 x10^3/uL (0.0-0.2) Sodium Level 142 mmol/L (136-145) Potassium Level 3.4 mmol/L (3.5-5.1) Chloride Level 104 mmol/L (98-107) Carbon Dioxide Level 28 mmol/L (21-32) Anion Gap 10 (6-14) Blood Urea Nitrogen 11 mg/dL (7-20) Creatinine 0.7 mg/dL (0.6-1.0) Estimated GFR (Cockcroft-Gault) 85.1 Glucose Level 156 mg/dL (70-99) Calcium Level 8.6 mg/dL (8.5-10.1) Assessment and Plan Assessmemt and Plan Problems Medical Problems: (1) Acute appendicitis Status: Acute Comment Review of Relevant I have reviewed the following items [place] (where applicable) has been applied. Labs Laboratory Tests Test 11/27/18 04:45 11/28/18 04:00 White Blood Count 8.7 x10^3/uL (4.0-11.0) 9.5 x10^3/uL (4.0-11.0) Red Blood Count 3.84 x10^6/uL (3.50-5.40) 4.55 x10^6/uL (3.50-5.40) Hemoglobin 11.8 g/dL (12.0-15.5) 14.0 g/dL (12.0-15.5) Hematocrit 35.0 % (36.0-47.0) 41.5 % (36.0-47.0) Mean Corpuscular Volume 91 fL (79-100) 91 fL (79-100) Mean Corpuscular Hemoglobin 31 pg (25-35) 31 pg (25-35) Mean Corpuscular Hemoglobin Concent 34 g/dL (31-37) 34 g/dL (31-37) Red Cell Distribution Width 13.5 % (11.5-14.5) 13.5 % (11.5-14.5) Platelet Count 201 x10^3/uL (140-400) 227 x10^3/uL (140-400) Neutrophils (%) (Auto) 85 % (31-73) 77 % (31-73) Lymphocytes (%) (Auto) 10 % (24-48) 14 % (24-48) Monocytes (%) (Auto) 5 % (0-9) 7 % (0-9) Eosinophils (%) (Auto) 0 % (0-3) 2 % (0-3) Basophils (%) (Auto) 0 % (0-3) 1 % (0-3) Neutrophils # (Auto) 7.4 x10^3uL (1.8-7.7) 7.3 x10^3uL (1.8-7.7) Lymphocytes # (Auto) 0.8 x10^3/uL (1.0-4.8) 1.3 x10^3/uL (1.0-4.8) Monocytes # (Auto) 0.4 x10^3/uL (0.0-1.1) 0.6 x10^3/uL (0.0-1.1) Eosinophils # (Auto) 0.0 x10^3/uL (0.0-0.7) 0.1 x10^3/uL (0.0-0.7) Basophils # (Auto) 0.0 x10^3/uL (0.0-0.2) 0.0 x10^3/uL (0.0-0.2) Segmented Neutrophils % 90 % (35-66) Band Neutrophils % 1 % (0-9) Lymphocytes % 6 % (24-48) Monocytes % 3 % (0-10) Platelet Estimate Adequate (ADEQUATE) Sodium Level 141 mmol/L (136-145) 142 mmol/L (136-145) Potassium Level 3.8 mmol/L (3.5-5.1) 3.4 mmol/L (3.5-5.1) Chloride Level 105 mmol/L (98-107) 104 mmol/L (98-107) Carbon Dioxide Level 27 mmol/L (21-32) 28 mmol/L (21-32) Anion Gap 9 (6-14) 10 (6-14) Blood Urea Nitrogen 10 mg/dL (7-20) 11 mg/dL (7-20) Creatinine 0.7 mg/dL (0.6-1.0) 0.7 mg/dL (0.6-1.0) Estimated GFR (Cockcroft-Gault) 85.1 85.1 Glucose Level 157 mg/dL (70-99) 156 mg/dL (70-99) Calcium Level 8.2 mg/dL (8.5-10.1) 8.6 mg/dL (8.5-10.1) Magnesium Level 2.2 mg/dL (1.8-2.4) Thyroid Stimulating Hormone (TSH) 0.476 uIU/mL (0.358-3.74) Laboratory Tests Test 11/28/18 04:00 White Blood Count 9.5 x10^3/uL (4.0-11.0) Red Blood Count 4.55 x10^6/uL (3.50-5.40) Hemoglobin 14.0 g/dL (12.0-15.5) Hematocrit 41.5 % (36.0-47.0) Mean Corpuscular Volume 91 fL (79-100) Mean Corpuscular Hemoglobin 31 pg (25-35) Mean Corpuscular Hemoglobin Concent 34 g/dL (31-37) Red Cell Distribution Width 13.5 % (11.5-14.5) Platelet Count 227 x10^3/uL (140-400) Neutrophils (%) (Auto) 77 % (31-73) Lymphocytes (%) (Auto) 14 % (24-48) Monocytes (%) (Auto) 7 % (0-9) Eosinophils (%) (Auto) 2 % (0-3) Basophils (%) (Auto) 1 % (0-3) Neutrophils # (Auto) 7.3 x10^3uL (1.8-7.7) Lymphocytes # (Auto) 1.3 x10^3/uL (1.0-4.8) Monocytes # (Auto) 0.6 x10^3/uL (0.0-1.1) Eosinophils # (Auto) 0.1 x10^3/uL (0.0-0.7) Basophils # (Auto) 0.0 x10^3/uL (0.0-0.2) Sodium Level 142 mmol/L (136-145) Potassium Level 3.4 mmol/L (3.5-5.1) Chloride Level 104 mmol/L (98-107) Carbon Dioxide Level 28 mmol/L (21-32) Anion Gap 10 (6-14) Blood Urea Nitrogen 11 mg/dL (7-20) Creatinine 0.7 mg/dL (0.6-1.0) Estimated GFR (Cockcroft-Gault) 85.1 Glucose Level 156 mg/dL (70-99) Calcium Level 8.6 mg/dL (8.5-10.1) Medications Current Medications Hydromorphone HCl (Dilaudid) 0.5 mg PRN Q15MIN PRN IV/SQ PAIN GREATER THAN 3/ 10 Last administered on 11/25/18at 20:37; Start 11/25/18 at 20:30; Stop 11/26/18 at 20:29; Status DC Sodium Chloride 1,000 ml @ 100 mls/hr Q10H IV Last administered on 11/25/18at 20:35; Start 11/25/18 at 20:21; Stop 11/26/18 at 06:20; Status DC Ondansetron HCl (Zofran) 4 mg 1X ONCE IV Last administered on 11/25/18at 20:36 ; Start 11/25/18 at 20:30; Stop 11/25/18 at 20:31; Status DC Piperacillin Sod/ Tazobactam Sod 4.5 gm/Sodium Chloride 100 ml @ 200 mls/hr 1X ONCE IV Last administered on 11/25/18at 20:55; Start 11/25/18 at 20:30; Stop 11/25/18 at 20:59; Status DC Hydromorphone HCl (Dilaudid) 0.5 mg 1X ONCE IV ; Start 11/25/18 at 22:30; Stop 11/26/18 at 01:32; Status DC Fentanyl Citrate (Fentanyl 2ml Vial) 50 mcg PRN Q2HRS PRN IV SEVERE PAIN Last administered on 11/26/18at 20:29; Start 11/26/18 at 01:45 Ondansetron HCl (Zofran) 4 mg PRN Q6HRS PRN IV NAUSEA/VOMITING 1ST CHOICE Last administered on 11/27/18at 09:39; Start 11/26/18 at 02:00 Piperacillin Sod/ Tazobactam Sod 3.375 gm/Sodium Chloride 50 ml @ 100 mls/hr Q6HRS IV Last administered on 11/28/18at 05:38; Start 11/26/18 at 00:00 Sodium Chloride 1,000 ml @ 100 mls/hr Q10H IV Last administered on 11/27/18at 17:16; Start 11/26/18 at 00:00 Ondansetron HCl (Zofran) 4 mg PRN Q6HRS PRN IV NAUSEA/VOMITING; Start 11/26/18 at 06:45; Stop 11/27/18 at 05:03; Status DC Fentanyl Citrate (Fentanyl 2ml Vial) 25 mcg PRN Q5MIN PRN IV MILD PAIN; Start 11/26/18 at 06:45; Stop 11/27/18 at 05:03; Status DC Fentanyl Citrate (Fentanyl 2ml Vial) 50 mcg PRN Q5MIN PRN IV MODERATE TO SEVERE PAIN Last administered on 11/26/18at 10:15; Start 11/26/18 at 06:45; Stop 11/27/18 at 05:03; Status DC Morphine Sulfate (Morphine Sulfate) 1 mg PRN Q10MIN PRN IV SEVERE PAIN; Start 11/26/18 at 06:45; Stop 11/27/18 at 05:03; Status DC Ringer's Solution 1,000 ml @ 30 mls/hr Q24H IV ; Start 11/26/18 at 06:36; Stop 11/26/18 at 18:35; Status DC Lidocaine HCl (Xylocaine-Mpf 1% 2ml Vial) 2 ml 1X PRN PRN ID IV START; Start at 06:45; Stop 11/27/18 at 05:03; Status DC Hydromorphone HCl (Dilaudid) 0.5 mg PRN Q10MIN PRN IV SEV PAIN, Second choice; Start 11/26/18 at 06:45; Stop 11/27/18 at 05:03; Status DC Prochlorperazine Edisylate (Compazine) 5 mg PACU PRN PRN IV NAUSEA, MRX1; Start 11/26/18 at 06:45; Stop 11/27/18 at 05:03; Status DC Propofol 20 ml @ As Directed STK-MED ONCE IV ; Start 11/26/18 at 07:04; Stop at 07:05; Status DC Lidocaine HCl (Lidocaine Pf 2% Vial) 5 ml STK-MED ONCE .ROUTE ; Start 11/26/18 at 07:04; Stop 11/26/18 at 07:05; Status DC Succinylcholine Chloride (Anectine) 200 mg STK-MED ONCE .ROUTE ; Start 11/26/18 at 07:04; Stop 11/26/18 at 07:05; Status DC Rocuronium [place] (Zemuron) 50 mg STK-MED ONCE .ROUTE ; Start 11/26/18 at 07:04 ; Stop 11/26/18 at 07:05; Status DC Fentanyl Citrate (Fentanyl 2ml Vial) 100 mcg STK-MED ONCE .ROUTE ; Start at 07:05; Stop 11/26/18 at 07:06; Status DC Bupivacaine HCl/ Epinephrine Bitart (Sensorcain-Mpf Epi 0.5%-1:[id number]) 30 ml STK -MED ONCE .ROUTE Last administered on 11/26/18at 07:57; Start 11/26/18 at 06:26 ; Stop 11/26/18 at 07:26; Status DC Dexamethasone Sodium Phosphate (Decadron) 20 mg STK-MED ONCE .ROUTE ; Start at 07:41; Stop 11/26/18 at 07:42; Status DC Ondansetron HCl (Zofran) 4 mg STK-MED ONCE .ROUTE ; Start 11/26/18 at 07:41; Stop 11/26/18 at 07:42; Status DC Desflurane (Suprane) 30 ml STK-MED ONCE IH ; Start 11/26/18 at 07:41; Stop 11/26 at 07:42; Status DC Neostigmine Methylsulfate (Neostigmine Methylsulfate) 5 mg STK-MED ONCE .ROUTE ; Start 11/26/18 at 07:51; Stop 11/26/18 at 07:52; Status DC Glycopyrrolate (Robinul) 1 mg STK-MED ONCE .ROUTE ; Start 11/26/18 at 07:51; Stop 11/26/18 at 07:52; Status DC Ketorolac Tromethamine (Toradol For Or Only) 30 mg STK-MED ONCE INJ ; Start at 08:49; Stop 11/26/18 at 08:50; Status DC Oxycodone/ Acetaminophen (Percocet 5/325) 1 tab PRN Q4HRS PRN PO PAIN; Start at 09:30 Oxycodone/ Acetaminophen (Percocet 5/325) 2 tab PRN Q4HRS PRN PO PAIN Last administered on 11/27/18at 19:41; Start 11/26/18 at 09:45 Fentanyl Citrate (Fentanyl 2ml Vial) 100 mcg STK-MED ONCE .ROUTE ; Start at 09:37; Stop 11/26/18 at 09:38; Status DC Atenolol (Tenormin) 50 mg DAILY PO Last administered on 11/26/18at 16:58; Start 11/26/18 at 17:00; Stop 11/27/18 at 09:04; Status DC Hydromorphone HCl (Dilaudid) 1 mg PRN Q3HRS PRN IV SEVERE PAIN Last administered on 11/28/18at 08:36; Start 11/26/18 at 20:45 Atenolol (Tenormin) 50 mg QHS PO ; Start 11/27/18 at 21:00; Stop 11/27/18 at 21: 00; Status DC Prochlorperazine Maleate (Compazine) 5 mg PRN Q6HRS PRN PO NAUSEA/VOMITING Last administered on 11/27/18at 11:37; Start 11/27/18 at 10:45 Docusate Sodium (Colace) 100 mg BID PO Last administered on 11/28/18at 08:36; Start 11/27/18 at 11:00 Hydralazine HCl (Apresoline Inj) 10 mg PRN Q4HRS PRN IVP ELEVATED BP, SEE COMMENTS; Start 11/27/18 at 12:15 Active Scripts Active Reported Atenolol 50 Mg Tablet 1 Tab PO DAILY Vitals/I & O Vital Sign - Last 24 Hours 11/27/18 11/27/18 11/27/18 11/27/18 09:30 11:00 12:03 13:30 Temp 98.0 98.0 Pulse 58 Resp 16 16 B/P (MAP) 134/56 (82) Pulse Ox 94 92 92 O2 Delivery Room Air Room Air Room Air Room Air O2 Flow Rate 3.0 3.0 11/27/18 11/27/18 11/27/18 11/27/18 14:17 14:59 16:00 19:00 Temp 98.2 98.7 98.2 98.7 Pulse 60 59 Resp 18 16 16 18 B/P (MAP) 147/53 (84) 168/74 (105) Pulse Ox 93 94 O2 Delivery Room Air Room Air Room Air 11/27/18 11/27/18 11/27/18 11/28/18 19:30 20:45 23:00 03:00 Temp 97.7 98.3 97.7 98.3 Pulse 72 66 Resp 16 18 B/P (MAP) 156/70 (98) 148/82 (104) Pulse Ox 96 96 O2 Delivery Room Air Room Air Room Air Room Air 11/28/18 11/28/18 11/28/18 07:38 08:00 08:36 Temp 98.9 98.9 Pulse 84 Resp 18 15 B/P (MAP) 134/82 (99) Pulse Ox 95 95 O2 Delivery Room Air Room Air Room Air O2 Flow Rate 3.0 Intake and Output 11/27/18 11/27/18 11/28/18 15:00 23:00 07:00 Output Total 45 ml 220 ml 510 ml Balance -45 ml -220 ml -510 ml FITO SANDERS MD Nov 28, 2018 09:14
[2018-11-28] MEDS ORDERED: POLYETHYLENE GLYCOL 3350 17 GM PACKET. PO SCH (09:15)
[2018-11-28] MEDS ORDERED: MAGNESIUM CITRATE 296 ML SOLUTION. PO ONE (09:15)
--- NOTE | 2018-11-28 10:09 | PDOC ---
ARABELLA CABRERA EARLY CHILDHOOD SPECIAL EDUCATOR 11/28/18 1009: SURGICAL PROGRESS NOTE Subjective incisional pain, pain at drain nausea at times some flatus no ambulating much Vital Signs Vital Signs Date Time Temp Pulse Resp B/P (MAP) Pulse Ox O2 Delivery O2 Flow Rate FiO2 11/28/18 09:20 14 95 Room Air 11/28/18 08:36 3.0 11/28/18 07:38 98.9 84 134/82 (99) 98.9 I&O Intake and Output 11/28/18 07:00 Output Total 775 ml Balance -775 ml Drainage Total 775 ml General: Alert, Oriented X3, Cooperative, No acute distress Abdomen: Soft, Other (drain serous ) Labs Laboratory Tests Test 11/27/18 04:45 11/28/18 04:00 White Blood Count 8.7 x10^3/uL (4.0-11.0) 9.5 x10^3/uL (4.0-11.0) Red Blood Count 3.84 x10^6/uL (3.50-5.40) 4.55 x10^6/uL (3.50-5.40) Hemoglobin 11.8 g/dL (12.0-15.5) 14.0 g/dL (12.0-15.5) Hematocrit 35.0 % (36.0-47.0) 41.5 % (36.0-47.0) Mean Corpuscular Volume 91 fL (79-100) 91 fL (79-100) Mean Corpuscular Hemoglobin 31 pg (25-35) 31 pg (25-35) Mean Corpuscular Hemoglobin Concent 34 g/dL (31-37) 34 g/dL (31-37) Red Cell Distribution Width 13.5 % (11.5-14.5) 13.5 % (11.5-14.5) Platelet Count 201 x10^3/uL (140-400) 227 x10^3/uL (140-400) Neutrophils (%) (Auto) 85 % (31-73) 77 % (31-73) Lymphocytes (%) (Auto) 10 % (24-48) 14 % (24-48) Monocytes (%) (Auto) 5 % (0-9) 7 % (0-9) Eosinophils (%) (Auto) 0 % (0-3) 2 % (0-3) Basophils (%) (Auto) 0 % (0-3) 1 % (0-3) Neutrophils # (Auto) 7.4 x10^3uL (1.8-7.7) 7.3 x10^3uL (1.8-7.7) Lymphocytes # (Auto) 0.8 x10^3/uL (1.0-4.8) 1.3 x10^3/uL (1.0-4.8) Monocytes # (Auto) 0.4 x10^3/uL (0.0-1.1) 0.6 x10^3/uL (0.0-1.1) Eosinophils # (Auto) 0.0 x10^3/uL (0.0-0.7) 0.1 x10^3/uL (0.0-0.7) Basophils # (Auto) 0.0 x10^3/uL (0.0-0.2) 0.0 x10^3/uL (0.0-0.2) Segmented Neutrophils % 90 % (35-66) Band Neutrophils % 1 % (0-9) Lymphocytes % 6 % (24-48) Monocytes % 3 % (0-10) Platelet Estimate Adequate (ADEQUATE) Sodium Level 141 mmol/L (136-145) 142 mmol/L (136-145) Potassium Level 3.8 mmol/L (3.5-5.1) 3.4 mmol/L (3.5-5.1) Chloride Level 105 mmol/L (98-107) 104 mmol/L (98-107) Carbon Dioxide Level 27 mmol/L (21-32) 28 mmol/L (21-32) Anion Gap 9 (6-14) 10 (6-14) Blood Urea Nitrogen 10 mg/dL (7-20) 11 mg/dL (7-20) Creatinine 0.7 mg/dL (0.6-1.0) 0.7 mg/dL (0.6-1.0) Estimated GFR (Cockcroft-Gault) 85.1 85.1 Glucose Level 157 mg/dL (70-99) 156 mg/dL (70-99) Calcium Level 8.2 mg/dL (8.5-10.1) 8.6 mg/dL (8.5-10.1) Magnesium Level 2.2 mg/dL (1.8-2.4) Thyroid Stimulating Hormone (TSH) 0.476 uIU/mL (0.358-3.74) Laboratory Tests Test 11/28/18 04:00 White Blood Count 9.5 x10^3/uL (4.0-11.0) Red Blood Count 4.55 x10^6/uL (3.50-5.40) Hemoglobin 14.0 g/dL (12.0-15.5) Hematocrit 41.5 % (36.0-47.0) Mean Corpuscular Volume 91 fL (79-100) Mean Corpuscular Hemoglobin 31 pg (25-35) Mean Corpuscular Hemoglobin Concent 34 g/dL (31-37) Red Cell Distribution Width 13.5 % (11.5-14.5) Platelet Count 227 x10^3/uL (140-400) Neutrophils (%) (Auto) 77 % (31-73) Lymphocytes (%) (Auto) 14 % (24-48) Monocytes (%) (Auto) 7 % (0-9) Eosinophils (%) (Auto) 2 % (0-3) Basophils (%) (Auto) 1 % (0-3) Neutrophils # (Auto) 7.3 x10^3uL (1.8-7.7) Lymphocytes # (Auto) 1.3 x10^3/uL (1.0-4.8) Monocytes # (Auto) 0.6 x10^3/uL (0.0-1.1) Eosinophils # (Auto) 0.1 x10^3/uL (0.0-0.7) Basophils # (Auto) 0.0 x10^3/uL (0.0-0.2) Sodium Level 142 mmol/L (136-145) Potassium Level 3.4 mmol/L (3.5-5.1) Chloride Level 104 mmol/L (98-107) Carbon Dioxide Level 28 mmol/L (21-32) Anion Gap 10 (6-14) Blood Urea Nitrogen 11 mg/dL (7-20) Creatinine 0.7 mg/dL (0.6-1.0) Estimated GFR (Cockcroft-Gault) 85.1 Glucose Level 156 mg/dL (70-99) Calcium Level 8.6 mg/dL (8.5-10.1) Problem List Problems Medical Problems: (1) Acute appendicitis Status: Acute Assessment/Plan continue abx, drain increase activity BRUCE KWOK MD 11/28/18 1153: SURGICAL PROGRESS NOTE Assessment/Plan Agree with above ARABELLA CABRERA EAR[employer] CHILDHOOD SPECIAL EDUCATOR Nov 28, 2018 10:09 BRUCE KWOK MD Nov 28, 2018 11:53
--- NOTE | 2018-11-28 11:20 | NUR ---
SS following for discharge planning. SS reviewed pt chart. Pt is from home with spouse and is currently on room air. No discharge needs noted at this time. SS will continue to follow for pending discharge needs.
[2018-11-28 11:23] VITALS: BP 177/86
[2018-11-28] MEDS: ACETAMINOPHEN 325 MG TABLET. PO PRN (11:45)
[2018-11-28] MEDS: oxyCODONE/APAP 5/325 1 TAB TABLET PO PRN ×3 (11:55→22:05)
[2018-11-28] MEDS ORDERED: SIMETHICONE 80 MG TAB.CHEW PO PRN (14:15)
[2018-11-28 14:51] VITALS: BP 142/80
--- NOTE | 2018-11-28 15:02 | PDOC ---
CATALINA VIDAL MAINTENANCE REPAIRMAN 11/28/18 1502: CARDIO Progress Notes Date and Time Date of Service 11/28/18 Time of Evaluation 1245 Subjective Subjective: No shortness of breath, No Palpitations, No Dizziness, Other ( belching, full) Vitals Vitals Vital Signs Date Time Temp Pulse Resp B/P (MAP) Pulse Ox O2 Delivery O2 Flow Rate FiO2 11/28/18 13:39 13 93 Room Air 11/28/18 11:23 100.5 97 177/86 (116) 100.5 11/28/18 08:36 3.0 Weight Weight [ ] Input and Output Intake and Output Intake and Output 11/28/18 07:00 Output Total 775 ml Balance -775 ml Drainage Total 775 ml Laboratory Labs Laboratory Tests Test 11/28/18 04:00 White Blood Count 9.5 x10^3/uL (4.0-11.0) Red Blood Count 4.55 x10^6/uL (3.50-5.40) Hemoglobin 14.0 g/dL (12.0-15.5) Hematocrit 41.5 % (36.0-47.0) Mean Corpuscular Volume 91 fL (79-100) Mean Corpuscular Hemoglobin 31 pg (25-35) Mean Corpuscular Hemoglobin Concent 34 g/dL (31-37) Red Cell Distribution Width 13.5 % (11.5-14.5) Platelet Count 227 x10^3/uL (140-400) Neutrophils (%) (Auto) 77 % (31-73) Lymphocytes (%) (Auto) 14 % (24-48) Monocytes (%) (Auto) 7 % (0-9) Eosinophils (%) (Auto) 2 % (0-3) Basophils (%) (Auto) 1 % (0-3) Neutrophils # (Auto) 7.3 x10^3uL (1.8-7.7) Lymphocytes # (Auto) 1.3 x10^3/uL (1.0-4.8) Monocytes # (Auto) 0.6 x10^3/uL (0.0-1.1) Eosinophils # (Auto) 0.1 x10^3/uL (0.0-0.7) Basophils # (Auto) 0.0 x10^3/uL (0.0-0.2) Sodium Level 142 mmol/L (136-145) Potassium Level 3.4 mmol/L (3.5-5.1) Chloride Level 104 mmol/L (98-107) Carbon Dioxide Level 28 mmol/L (21-32) Anion Gap 10 (6-14) Blood Urea Nitrogen 11 mg/dL (7-20) Creatinine 0.7 mg/dL (0.6-1.0) Estimated GFR (Cockcroft-Gault) 85.1 Glucose Level 156 mg/dL (70-99) Calcium Level 8.6 mg/dL (8.5-10.1) Physical Exam HEENT: Neck Supple W Full Motion Chest: Symmetric LUNGS: Clear to Auscultation Heart: S1S2, RRR Abdomen: Other (distended, full) Extremities: No Edema Neurology: alert, oriented, follow commands Assessment Assessment 1. Transient high grade block with intermittent pauses; BB discontinued. None further overnight . Echo with preserved LV systolic function. . MG, TSH WNL. No acute indication for PPM 2. Acute appendicitis S/P Lap appendectomy POD#2. 3. HTN: controlled 4. Morbid obesity Recommendations Avoid AV linda blocking agents Will arrange for outpatient event monitor with follow up. Supportive care. Follow surgery recs MIGEL WALKER MD 11/28/18 4328: CARDIO Progress Notes Assessment Assessment Patient seen and examined. Agree with JACKET PREPARER's assessment and plan. No significant pauses/bradycardia noted overnight Plan for outpatient event monitor for further evaluation CATALINA VIDAL APRN Nov 28, 2018 15:02 MIGEL WALKER MD Nov 28, 2018 16:56
[2018-11-28 19:00] VITALS: BP 154/68
[2018-11-28] MEDS: LACTOBACILLUS RHAMNOSUS GG 1 CAPSULE. PO SCH (21:07)
[2018-11-28 23:00] VITALS: BP 173/75
[2018-11-29] VITALS (7 sets, daily range): BP systolic 149–181; BP diastolic 71–88
[2018-11-29] MEDS: ONDANSETRON PF 4 MG/2 ML VIAL. IV PRN ×2 (00:38→14:25)
[2018-11-29] MEDS: PIPERACILLIN/TAZOBACTAM 3.375 GM in IV NORMAL SALINE 50ML 50 ML IV SCH ×5 (00:42→23:10)
--- NOTE | 2018-11-29 01:00 | NUR ---
PT'S HR CONTINUED DROPPING TO LOW 30'S. PT BACK UP TO 90'S QUICKLY. BUT SHE IS SYMPTOMATIC. NAUSEATED. 30 CC GREEN BILE LOOKING CLEAR LIQUID. PLACED OXYGEN ON HER FOR COMFORT. COOL WASHCLOTHE. SEE CHART FOR CARDIAC RHYTHM STRIPS. SECOND DEGREE TYPE TWO. HR 30'S. LCRN
--- NOTE | 2018-11-29 02:30 | NUR ---
GAVE PRN BP MED. LCRN
--- NOTE | 2018-11-29 08:52 | PDOC ---
ARABELLA CABRERA LITERARY AGENT 11/29/18 0852: SURGICAL PROGRESS NOTE Subjective + stool feels better overall eating some mostly gas pains Vital Signs Vital Signs Date Time Temp Pulse Resp B/P (MAP) Pulse Ox O2 Delivery O2 Flow Rate FiO2 11/29/18 07:22 98.0 83 18 171/82 (111) 93 Room Air 98.0 11/28/18 08:36 3.0 I&O Intake and Output 11/29/18 07:00 Intake Total 650 ml Output Total 391 ml Balance 259 ml Intake Oral 600 ml IV Total 50 ml Output Urine Total 1 ml Emesis 50 ml Drainage Total 340 ml # Voids 1 General: Alert, Oriented X3, Cooperative, No acute distress Abdomen: Soft, Other (drain cloudy, milkly purulent in color ) Labs Laboratory Tests Test 11/28/18 04:00 White Blood Count 9.5 x10^3/uL (4.0-11.0) Red Blood Count 4.55 x10^6/uL (3.50-5.40) Hemoglobin 14.0 g/dL (12.0-15.5) Hematocrit 41.5 % (36.0-47.0) Mean Corpuscular Volume 91 fL (79-100) Mean Corpuscular Hemoglobin 31 pg (25-35) Mean Corpuscular Hemoglobin Concent 34 g/dL (31-37) Red Cell Distribution Width 13.5 % (11.5-14.5) Platelet Count 227 x10^3/uL (140-400) Neutrophils (%) (Auto) 77 % (31-73) Lymphocytes (%) (Auto) 14 % (24-48) Monocytes (%) (Auto) 7 % (0-9) Eosinophils (%) (Auto) 2 % (0-3) Basophils (%) (Auto) 1 % (0-3) Neutrophils # (Auto) 7.3 x10^3uL (1.8-7.7) Lymphocytes # (Auto) 1.3 x10^3/uL (1.0-4.8) Monocytes # (Auto) 0.6 x10^3/uL (0.0-1.1) Eosinophils # (Auto) 0.1 x10^3/uL (0.0-0.7) Basophils # (Auto) 0.0 x10^3/uL (0.0-0.2) Sodium Level 142 mmol/L (136-145) Potassium Level 3.4 mmol/L (3.5-5.1) Chloride Level 104 mmol/L (98-107) Carbon Dioxide Level 28 mmol/L (21-32) Anion Gap 10 (6-14) Blood Urea Nitrogen 11 mg/dL (7-20) Creatinine 0.7 mg/dL (0.6-1.0) Estimated GFR (Cockcroft-Gault) 85.1 Glucose Level 156 mg/dL (70-99) Calcium Level 8.6 mg/dL (8.5-10.1) Problem List Problems Medical Problems: (1) Acute appendicitis Status: Acute Assessment/Plan s/p appy drain more cloudy, purulent low grade fevers yesterday will check CBC today continue IV abx, drain will d/w Dr Cr, he will see pt over weekend BRUCE CR MD 11/29/18 0958: SURGICAL PROGRESS NOTE Assessment/Plan Above noted, some purulent fluid in drain, no overt stool; would not push cathartics, mindful of suture line repair at appendiceal base; continue to monitor, if drain output becomes concerning may need repeat CT [employer] Nov 29, 2018 08:52 BRUCE CR MD Nov 29, 2018 09:58
[2018-11-29] MEDS ORDERED: POLYETHYLENE GLYCOL 3350 17 GM PACKET. PO SCH (09:00)
[2018-11-29] MEDS: DOCUSATE SODIUM 100 MG CAPSULE. PO SCH ×2 (09:06→21:19)
[2018-11-29] MEDS: LACTOBACILLUS RHAMNOSUS GG 1 CAPSULE. PO SCH ×2 (09:06→21:18)
[2018-11-29] MEDS: oxyCODONE/APAP 5/325 1 TAB TABLET PO PRN (09:11)
[2018-11-29] MEDS: IV NORMAL SALINE 1000ML BAG 1,000 ML IV SCH ×2 (09:12→23:09)
[2018-11-29 10:03] LABS: BASO % 0 % (0-3); EOS # 0.1 x10^3/uL (0.0-0.7); EOS % 2 % (0-3); HEMATOCRIT 37.6 % (36.0-47.0); HEMOGLOBIN 12.6 g/dL (12.0-15.5); LYMPH # 0.5 x10^3/uL (1.0-4.8); LYMPH % 9 % (24-48); MEAN CORPUSCULAR HEMOGLOBIN 30 pg (25-35); MEAN CORPUSCULAR HGB CONC 34 g/dL (31-37); MEAN CORPUSCULAR VOLUME 91 fL (79-100); MONO # 0.3 x10^3/uL (0.0-1.1); MONO % 6 % (0-9); NEUT # 4.7 x10^3uL (1.8-7.7); NEUT % 83 % (31-73); PLATELET COUNT 220 x10^3/uL (140-400); RED BLOOD COUNT 4.14 x10^6/uL (3.50-5.40); RED CELL DISTRIBUTION WIDTH 13.5 % (11.5-14.5); WHITE BLOOD COUNT 5.7 x10^3/uL (4.0-11.0)
[2018-11-29 10:16] LABS: CALCIUM 8.4 mg/dL (8.5-10.1); CREATININE 0.6 mg/dL (0.6-1.0); GFR 101.6; POTASSIUM 3.4 mmol/L (3.5-5.1)
--- NOTE | 2018-11-29 10:51 | PDOC ---
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 Patient states that initially she thought she was constipated. She states that she had taken a Dulcolax without any improvement. She states that Sunday symptoms had worsened and again Sunday even worse. She was seen by her primary care doctor today who had ordered an outpatient CT scan and patient presents with imaging report from diagnostic radiology demonstrating a dilated appendix consistent with appendicitis. S/p appendectomy 11/27 with signs of near perforation, drain left in, draining serosanguineous material. Had BM this morning. Passing flatus, pain reasonably controlled. Plan: Cont zosyn, will need 5-7 days augmentin on d/c when ok with surgery. Another day of inpatient monitoring would be appropriate. Ok for gentle bowel regimen, no stimulants. Monitor drain output Ambulation IS bedside Vitals Vitals Vital Signs Date Time Temp Pulse Resp B/P (MAP) Pulse Ox O2 Delivery O2 Flow Rate FiO2 11/29/18 09:11 15 93 Room Air 11/29/18 07:22 98.0 83 171/82 (111) 98.0 11/28/18 08:36 3.0 Physical Exam General: Alert, Oriented X3, Cooperative, No acute distress Heart: Regular rate (SB), Normal S1, Normal S2, No murmurs Lungs: Clear Abdomen: Soft, Other (drain cloudy, milkly purulent in color ) Extremities: No cyanosis, No edema Skin: No breakdown, No significant lesion Labs LABS Laboratory Tests Test 11/29/18 09:40 White Blood Count 5.7 x10^3/uL (4.0-11.0) Red Blood Count 4.14 x10^6/uL (3.50-5.40) Hemoglobin 12.6 g/dL (12.0-15.5) Hematocrit 37.6 % (36.0-47.0) Mean Corpuscular Volume 91 fL (79-100) Mean Corpuscular Hemoglobin 30 pg (25-35) Mean Corpuscular Hemoglobin Concent 34 g/dL (31-37) Red Cell Distribution Width 13.5 % (11.5-14.5) Platelet Count 220 x10^3/uL (140-400) Neutrophils (%) (Auto) 83 % (31-73) Lymphocytes (%) (Auto) 9 % (24-48) Monocytes (%) (Auto) 6 % (0-9) Eosinophils (%) (Auto) 2 % (0-3) Basophils (%) (Auto) 0 % (0-3) Neutrophils # (Auto) 4.7 x10^3uL (1.8-7.7) Lymphocytes # (Auto) 0.5 x10^3/uL (1.0-4.8) Monocytes # (Auto) 0.3 x10^3/uL (0.0-1.1) Eosinophils # (Auto) 0.1 x10^3/uL (0.0-0.7) Basophils # (Auto) 0.0 x10^3/uL (0.0-0.2) Sodium Level 136 mmol/L (136-145) Potassium Level 3.4 mmol/L (3.5-5.1) Chloride Level 100 mmol/L (98-107) Carbon Dioxide Level 26 mmol/L (21-32) Anion Gap 10 (6-14) Blood Urea Nitrogen 9 mg/dL (7-20) Creatinine 0.6 mg/dL (0.6-1.0) Estimated GFR (Cockcroft-Gault) 101.6 Glucose Level 150 mg/dL (70-99) Calcium Level 8.4 mg/dL (8.5-10.1) Assessment and Plan Assessmemt and Plan Problems Medical Problems: (1) Acute appendicitis Status: Acute Comment Review of Relevant I have reviewed the following items well[place] (where applicable) has been applied. Labs Laboratory Tests Test 11/28/18 04:00 11/29/18 09:40 White Blood Count 9.5 x10^3/uL (4.0-11.0) 5.7 x10^3/uL (4.0-11.0) Red Blood Count 4.55 x10^6/uL (3.50-5.40) 4.14 x10^6/uL (3.50-5.40) Hemoglobin 14.0 g/dL (12.0-15.5) 12.6 g/dL (12.0-15.5) Hematocrit 41.5 % (36.0-47.0) 37.6 % (36.0-47.0) Mean Corpuscular Volume 91 fL (79-100) 91 fL (79-100) Mean Corpuscular Hemoglobin 31 pg (25-35) 30 pg (25-35) Mean Corpuscular Hemoglobin Concent 34 g/dL (31-37) 34 g/dL (31-37) Red Cell Distribution Width 13.5 % (11.5-14.5) 13.5 % (11.5-14.5) Platelet Count 227 x10^3/uL (140-400) 220 x10^3/uL (140-400) Neutrophils (%) (Auto) 77 % (31-73) 83 % (31-73) Lymphocytes (%) (Auto) 14 % (24-48) 9 % (24-48) Monocytes (%) (Auto) 7 % (0-9) 6 % (0-9) Eosinophils (%) (Auto) 2 % (0-3) 2 % (0-3) Basophils (%) (Auto) 1 % (0-3) 0 % (0-3) Neutrophils # (Auto) 7.3 x10^3uL (1.8-7.7) 4.7 x10^3uL (1.8-7.7) Lymphocytes # (Auto) 1.3 x10^3/uL (1.0-4.8) 0.5 x10^3/uL (1.0-4.8) Monocytes # (Auto) 0.6 x10^3/uL (0.0-1.1) 0.3 x10^3/uL (0.0-1.1) Eosinophils # (Auto) 0.1 x10^3/uL (0.0-0.7) 0.1 x10^3/uL (0.0-0.7) Basophils # (Auto) 0.0 x10^3/uL (0.0-0.2) 0.0 x10^3/uL (0.0-0.2) Sodium Level 142 mmol/L (136-145) 136 mmol/L (136-145) Potassium Level 3.4 mmol/L (3.5-5.1) 3.4 mmol/L (3.5-5.1) Chloride Level 104 mmol/L (98-107) 100 mmol/L (98-107) Carbon Dioxide Level 28 mmol/L (21-32) 26 mmol/L (21-32) Anion Gap 10 (6-14) 10 (6-14) Blood Urea Nitrogen 11 mg/dL (7-20) 9 mg/dL (7-20) Creatinine 0.7 mg/dL (0.6-1.0) 0.6 mg/dL (0.6-1.0) Estimated GFR (Cockcroft-Gault) 85.1 101.6 Glucose Level 156 mg/dL (70-99) 150 mg/dL (70-99) Calcium Level 8.6 mg/dL (8.5-10.1) 8.4 mg/dL (8.5-10.1) Laboratory Tests Test 11/29/18 09:40 White Blood Count 5.7 x10^3/uL (4.0-11.0) Red Blood Count 4.14 x10^6/uL (3.50-5.40) Hemoglobin 12.6 g/dL (12.0-15.5) Hematocrit 37.6 % (36.0-47.0) Mean Corpuscular Volume 91 fL (79-100) Mean Corpuscular Hemoglobin 30 pg (25-35) Mean Corpuscular Hemoglobin Concent 34 g/dL (31-37) Red Cell Distribution Width 13.5 % (11.5-14.5) Platelet Count 220 x10^3/uL (140-400) Neutrophils (%) (Auto) 83 % (31-73) Lymphocytes (%) (Auto) 9 % (24-48) Monocytes (%) (Auto) 6 % (0-9) Eosinophils (%) (Auto) 2 % (0-3) Basophils (%) (Auto) 0 % (0-3) Neutrophils # (Auto) 4.7 x10^3uL (1.8-7.7) Lymphocytes # (Auto) 0.5 x10^3/uL (1.0-4.8) Monocytes # (Auto) 0.3 x10^3/uL (0.0-1.1) Eosinophils # (Auto) 0.1 x10^3/uL (0.0-0.7) Basophils # (Auto) 0.0 x10^3/uL (0.0-0.2) Sodium Level 136 mmol/L (136-145) Potassium Level 3.4 mmol/L (3.5-5.1) Chloride Level 100 mmol/L (98-107) Carbon Dioxide Level 26 mmol/L (21-32) Anion Gap 10 (6-14) Blood Urea Nitrogen 9 mg/dL (7-20) Creatinine 0.6 mg/dL (0.6-1.0) Estimated GFR (Cockcroft-Gault) 101.6 Glucose Level 150 mg/dL (70-99) Calcium Level 8.4 mg/dL (8.5-10.1) Medications Current Medications Hydromorphone HCl (Dilaudid) 0.5 mg PRN Q15MIN PRN IV/SQ PAIN GREATER THAN 3/ 10 Last administered on 11/25/18at 20:37; Start 11/25/18 at 20:30; Stop 11/26/18 at 20:29; Status DC Sodium Chloride 1,000 ml @ 100 mls/hr Q10H IV Last administered on 11/25/18at 20:35; Start 11/25/18 at 20:21; Stop 11/26/18 at 06:20; Status DC Ondansetron HCl (Zofran) 4 mg 1X ONCE IV Last administered on 11/25/18at 20:36 ; Start 11/25/18 at 20:30; Stop 11/25/18 at 20:31; Status DC Piperacillin Sod/ Tazobactam Sod 4.5 gm/Sodium Chloride 100 ml @ 200 mls/hr 1X ONCE IV Last administered on 11/25/18at 20:55; Start 11/25/18 at 20:30; Stop 11/25/18 at 20:59; Status DC Hydromorphone HCl (Dilaudid) 0.5 mg 1X ONCE IV ; Start 11/25/18 at 22:30; Stop 11/26/18 at 01:32; Status DC Fentanyl Citrate (Fentanyl 2ml Vial) 50 mcg PRN Q2HRS PRN IV MODERATE PAIN Last administered on 11/26/18at 20:29; Start 11/26/18 at 01:45 Ondansetron HCl (Zofran) 4 mg PRN Q6HRS PRN IV NAUSEA/VOMITING 1ST CHOICE Last administered on 11/29/18at 00:38; Start 11/26/18 at 02:00 Piperacillin Sod/ Tazobactam Sod 3.375 gm/Sodium Chloride 50 ml @ 100 mls/hr Q6HRS IV Last administered on 11/29/18at 06:18; Start 11/26/18 at 00:00 Sodium Chloride 1,000 ml @ 100 mls/hr Q10H IV Last administered on 11/29/18at 09:12; Start 11/26/18 at 00:00 Ondansetron HCl (Zofran) 4 mg PRN Q6HRS PRN IV NAUSEA/VOMITING; Start 11/26/18 at 06:45; Stop 11/27/18 at 05:03; Status DC Fentanyl Citrate (Fentanyl 2ml Vial) 25 mcg PRN Q5MIN PRN IV MILD PAIN; Start 11/26/18 at 06:45; Stop 11/27/18 at 05:03; Status DC Fentanyl Citrate (Fentanyl 2ml Vial) 50 mcg PRN Q5MIN PRN IV MODERATE TO SEVERE PAIN Last administered on 11/26/18at 10:15; Start 11/26/18 at 06:45; Stop 11/27/18 at 05:03; Status DC Morphine Sulfate (Morphine Sulfate) 1 mg PRN Q10MIN PRN IV SEVERE PAIN; Start 11/26/18 at 06:45; Stop 11/27/18 at 05:03; Status DC Ringer's Solution 1,000 ml @ 30 mls/hr Q24H IV ; Start 11/26/18 at 06:36; Stop 11/26/18 at 18:35; Status DC Lidocaine HCl (Xylocaine-Mpf 1% 2ml Vial) 2 ml 1X PRN PRN ID IV START; Start at 06:45; Stop 11/27/18 at 05:03; Status DC Hydromorphone HCl (Dilaudid) 0.5 mg PRN Q10MIN PRN IV SEV PAIN, Second choice; Start 11/26/18 at 06:45; Stop 11/27/18 at 05:03; Status DC Prochlorperazine Edisylate (Compazine) 5 mg PACU PRN PRN IV NAUSEA, MRX1; Start 11/26/18 at 06:45; Stop 11/27/18 at 05:03; Status DC Propofol 20 ml @ As Directed STK-MED ONCE IV ; Start 11/26/18 at 07:04; Stop at 07:05; Status DC Lidocaine HCl (Lidocaine Pf 2% Vial) 5 ml STK-MED ONCE .ROUTE ; Start 11/26/18 at 07:04; Stop 11/26/18 at 07:05; Status DC Succinylcholine Chloride (Anectine) 200 mg STK-MED ONCE .ROUTE ; Start 11/26/18 at 07:04; Stop 11/26/18 at 07:05; Status DC Rocuronium [place] (Zemuron) 50 mg STK-MED ONCE .ROUTE ; Start 11/26/18 at 07:04 ; Stop 11/26/18 at 07:05; Status DC Fentanyl Citrate (Fentanyl 2ml Vial) 100 mcg STK-MED ONCE .ROUTE ; Start at 07:05; Stop 11/26/18 at 07:06; Status DC Bupivacaine HCl/ Epinephrine Bitart (Sensorcain-Mpf Epi 0.5%-1:[id number]) 30 ml STK -MED ONCE .ROUTE Last administered on 11/26/18at 07:57; Start 11/26/18 at 06:26 ; Stop 11/26/18 at 07:26; Status DC Dexamethasone Sodium Phosphate (Decadron) 20 mg STK-MED ONCE .ROUTE ; Start at 07:41; Stop 11/26/18 at 07:42; Status DC Ondansetron HCl (Zofran) 4 mg STK-MED ONCE .ROUTE ; Start 11/26/18 at 07:41; Stop 11/26/18 at 07:42; Status DC Desflurane (Suprane) 30 ml STK-MED ONCE IH ; Start 11/26/18 at 07:41; Stop 11/26 at 07:42; Status DC Neostigmine Methylsulfate (Neostigmine Methylsulfate) 5 mg STK-MED ONCE .ROUTE ; Start 11/26/18 at 07:51; Stop 11/26/18 at 07:52; Status DC Glycopyrrolate (Robinul) 1 mg STK-MED ONCE .ROUTE ; Start 11/26/18 at 07:51; Stop 11/26/18 at 07:52; Status DC Ketorolac Tromethamine (Toradol For Or Only) 30 mg STK-MED ONCE INJ ; Start at 08:49; Stop 11/26/18 at 08:50; Status DC Oxycodone/ Acetaminophen (Percocet 5/325) 1 tab PRN Q4HRS PRN PO MODERATE PAIN Last administered on 11/29/18at 09:11; Start 11/26/18 at 09:30 Oxycodone/ Acetaminophen (Percocet 5/325) 2 tab PRN Q4HRS PRN PO SEVERE PAIN Last administered on 11/27/18at 19:41; Start 11/26/18 at 09:45 Fentanyl Citrate (Fentanyl 2ml Vial) 100 mcg STK-MED ONCE .ROUTE ; Start at 09:37; Stop 11/26/18 at 09:38; Status DC Atenolol (Tenormin) 50 mg DAILY PO Last administered on 11/26/18at 16:58; Start 11/26/18 at 17:00; Stop 11/27/18 at 09:04; Status DC Hydromorphone HCl (Dilaudid) 1 mg PRN Q3HRS PRN IV SEVERE PAIN Last administered on 11/28/18at 08:36; Start 11/26/18 at 20:45 Atenolol (Tenormin) 50 mg QHS PO ; Start 11/27/18 at 21:00; Stop 11/27/18 at 21: 00; Status DC Prochlorperazine Maleate (Compazine) 5 mg PRN Q6HRS PRN PO NAUSEA/VOMITING Last administered on 11/27/18at 11:37; Start 11/27/18 at 10:45 Docusate Sodium (Colace) 100 mg BID PO Last administered on 11/29/18 09:06; Start 11/27/18 at 11:00 Hydralazine HCl (Apresoline Inj) 10 mg PRN Q4HRS PRN IVP ELEVATED BP, SEE COMMENTS Last administered on 11/28/18at 22:10; Start 11/27/18 at 12:15 Polyethylene Glycol (miraLAX PACKET) 17 gm DAILY PO Last administered on at 10:08; Start 11/28/18 at 09:15; Stop 11/28/18 at 12:24; Status DC Magnesium Citrate (Citroma) 296 ml 1X ONCE PO Last administered on 11/28/18at 10:08; Start 11/28/18 at 09:15; Stop 11/28/18 at 12:24; Status DC Acetaminophen (Tylenol) 650 mg PRN Q6HRS PRN PO Temp Last administered on at 11:45; Start 11/28/18 at 11:30 Lactobacillus Rhamnosus (Culturelle) 1 cap BID PO Last administered on at 09:06; Start 11/28/18 at 21:00 Simethicone (Gas-X) 80 mg PRN AFTMEALHC PRN PO GAS / BLOATING; Start 11/28/18 at 14:15 Polyethylene Glycol (miraLAX PACKET) 17 gm DAILY PO ; Start 11/29/18 at 09:00; Stop 11/29/18 at 09:03; Status DC Active Scripts Active Reported Atenolol 50 Mg Tablet 1 Tab PO DAILY Vitals/I & O Vital Sign - Last 24 Hours 11/28/18 11/28/18 11/28/18 11/28/18 11:23 11:55 14:51 17:36 Temp 100.5 100.0 100.5 100.0 Pulse 97 90 Resp 18 15 20 14 B/P (MAP) 177/86 (116) 142/80 (100) Pulse Ox 93 93 93 93 O2 Delivery Room Air Room Air Room Air Room Air 11/28/18 11/28/18 11/28/18 11/28/18 18:48 19:00 20:00 22:10 Temp 98.8 98.8 Pulse 89 80 Resp 15 17 B/P (MAP) 154/68 (96) 178/77 Pulse Ox 93 91 O2 Delivery Room Air Room Air Room Air 11/28/18 11/29/18 11/29/18 11/29/18 23:00 02:33 07:22 08:00 Temp 98.8 98.6 98.0 98.8 98.6 98.0 Pulse 81 96 83 Resp 18 18 18 B/P (MAP) 173/75 (107) 163/71 (101) 171/82 (111) Pulse Ox 93 95 93 O2 Delivery Room Air Room Air Room Air Room Air 11/29/18 09:11 Resp 15 Pulse Ox 93 O2 Delivery Room Air Intake and Output 11/28/18 11/28/18 11/29/18 15:00 23:00 07:00 Intake Total 50 ml 0 ml 600 ml Output Total 70 ml 170 ml 151 ml Balance -20 ml -170 ml 449 ml FITO SANDERS MD Nov 29, 2018 10:51
[2018-11-29] MEDS ORDERED: POTASSIUM CHLORIDE 20 MEQ TABLET.ER. PO ONE (11:00)
--- NOTE | 2018-11-29 11:22 | PDOC ---
CATALINA VIDAL INSTRUCTIONAL SUPPORT SPECIALIST 11/29/18 1122: CARDIO Progress Notes Date and Time Date of Service 11/29/18 Time of Evaluation 1015 Subjective Subjective: No Chest Pain, No shortness of breath, No Palpitations, Other ( brief episode of dizziness when HR in 30's) Vitals Vitals Vital Signs Date Time Temp Pulse Resp B/P (MAP) Pulse Ox O2 Delivery O2 Flow Rate FiO2 11/29/18 10:54 99.3 96 18 165/88 (113) 94 Room Air 99.3 11/28/18 08:36 3.0 Weight Weight [ ] Input and Output Intake and Output Intake and Output 11/29/18 07:00 Intake Total 650 ml Output Total 391 ml Balance 259 ml Intake Oral 600 ml IV Total 50 ml Output Urine Total 1 ml Emesis 50 ml Drainage Total 340 ml # Voids 1 Laboratory Labs Laboratory Tests Test 11/29/18 09:40 White Blood Count 5.7 x10^3/uL (4.0-11.0) Red Blood Count 4.14 x10^6/uL (3.50-5.40) Hemoglobin 12.6 g/dL (12.0-15.5) Hematocrit 37.6 % (36.0-47.0) Mean Corpuscular Volume 91 fL (79-100) Mean Corpuscular Hemoglobin 30 pg (25-35) Mean Corpuscular Hemoglobin Concent 34 g/dL (31-37) Red Cell Distribution Width 13.5 % (11.5-14.5) Platelet Count 220 x10^3/uL (140-400) Neutrophils (%) (Auto) 83 % (31-73) Lymphocytes (%) (Auto) 9 % (24-48) Monocytes (%) (Auto) 6 % (0-9) Eosinophils (%) (Auto) 2 % (0-3) Basophils (%) (Auto) 0 % (0-3) Neutrophils # (Auto) 4.7 x10^3uL (1.8-7.7) Lymphocytes # (Auto) 0.5 x10^3/uL (1.0-4.8) Monocytes # (Auto) 0.3 x10^3/uL (0.0-1.1) Eosinophils # (Auto) 0.1 x10^3/uL (0.0-0.7) Basophils # (Auto) 0.0 x10^3/uL (0.0-0.2) Sodium Level 136 mmol/L (136-145) Potassium Level 3.4 mmol/L (3.5-5.1) Chloride Level 100 mmol/L (98-107) Carbon Dioxide Level 26 mmol/L (21-32) Anion Gap 10 (6-14) Blood Urea Nitrogen 9 mg/dL (7-20) Creatinine 0.6 mg/dL (0.6-1.0) Estimated GFR (Cockcroft-Gault) 101.6 Glucose Level 150 mg/dL (70-99) Calcium Level 8.4 mg/dL (8.5-10.1) Physical Exam HEENT: Neck Supple W Full Motion Chest: Symmetric LUNGS: Clear to Auscultation Heart: S1S2, RRR Abdomen: Other (distended, full) Extremities: No Edema Neurology: alert, oriented, follow commands Assessment Assessment 1. High grade block; BB discontinued. Echo with preserved LV systolic function. Patient had very brief episode (<30 seconds in duration) of 2nd degree type II AV block overnight- none further today. 2. Acute appendicitis S/P Lap appendectomy POD#3. 3. HTN: consistently elevated 4. Morbid obesity Recommendations Avoid AV linda blocking agents Add lisinopril for better BP control Supportive care. Will place event monitor prior to discharge May discharge from a CV standpoint and f/u in our office with Dr. Zhao as scheduled. Follow surgery recs MIGEL ZHAO MD 11/29/18 1808: CARDIO Progress Notes Assessment Assessment Patient seen and examined. Agree with PATENT DRAFTER's assessment and plan. Tele showed 3.2 s pause Plan for outpatient event monitor Continue post op care per surgical team CATALINA VIDAL APRN Nov 29, 2018 11:22 MIGEL ZHAO MD Nov 29, 2018 18:08
[2018-11-29] MEDS: LISINOPRIL 10 MG TABLET PO SCH (14:25)
[2018-11-29] MEDS: PROCHLORPERAZINE 5 MG TABLET. PO PRN (15:33)
[2018-11-29] MEDS: HYDROmorphone 2 MG/ML VIAL IV PRN (23:14)
[2018-11-30 02:48] VITALS: BP 136/71
[2018-11-30] MEDS: IV NORMAL SALINE 1000ML BAG 1,000 ML IV SCH ×2 (04:00→08:43)
[2018-11-30] MEDS: PIPERACILLIN/TAZOBACTAM 3.375 GM in IV NORMAL SALINE 50ML 50 ML IV SCH (05:09)
[2018-11-30 07:41] VITALS: BP 149/79
[2018-11-30] MEDS: DOCUSATE SODIUM 100 MG CAPSULE. PO SCH (08:33)
[2018-11-30] MEDS: LACTOBACILLUS RHAMNOSUS GG 1 CAPSULE. PO SCH (08:33)
[2018-11-30] MEDS: LISINOPRIL 10 MG TABLET PO SCH (08:34)
[2018-11-30] MEDS: ACETAMINOPHEN 325 MG TABLET. PO PRN (08:42)
[2018-11-30 10:06] LABS: BASO % 0 % (0-3); EOS # 0.2 x10^3/uL (0.0-0.7); EOS % 3 % (0-3); HEMATOCRIT 35.4 % (36.0-47.0); HEMOGLOBIN 11.7 g/dL (12.0-15.5); LYMPH # 0.9 x10^3/uL (1.0-4.8); LYMPH % 16 % (24-48); MEAN CORPUSCULAR HEMOGLOBIN 31 pg (25-35); MEAN CORPUSCULAR HGB CONC 33 g/dL (31-37); MEAN CORPUSCULAR VOLUME 92 fL (79-100); MONO # 0.4 x10^3/uL (0.0-1.1); MONO % 8 % (0-9); NEUT # 4.1 x10^3uL (1.8-7.7); NEUT % 73 % (31-73); PLATELET COUNT 201 x10^3/uL (140-400); RED BLOOD COUNT 3.83 x10^6/uL (3.50-5.40); RED CELL DISTRIBUTION WIDTH 13.8 % (11.5-14.5); WHITE BLOOD COUNT 5.6 x10^3/uL (4.0-11.0)
--- NOTE | 2018-11-30 11:49 | PDOC ---
PROGRESS NOTES Subjective Subjective Feeling much better, passing gas and stool Objective Objective Vital Signs Date Time Temp Pulse Resp B/P (MAP) Pulse Ox O2 Delivery O2 Flow Rate FiO2 11/30/18 08:34 149/79 11/30/18 08:01 Room Air 11/30/18 07:41 98.2 16 95 98.2 11/30/18 02:48 88 11/29/18 11:30 3.0 Intake and Output 11/30/18 06:59 Intake Total 2490 ml Output Total 550 ml Balance 1940 ml Intake Oral 790 ml IV Total 1700 ml Output Urine Total 400 ml Drainage Total 150 ml # Voids 1 # Bowel Movements 1 Physical Exam Abdomen: Soft (DENY output decreased, now appears serous) Assessment Assessment Problems Medical Problems: (1) Acute appendicitis Status: Acute Plan Plan of Care OK to discharge, keep drain intact, FU with Dr Kwok in 1-2 weeks Comment Review of Relevant I have reviewed the following items [place] (where applicable) has been applied. Labs Laboratory Tests Test 11/29/18 09:40 11/30/18 09:10 White Blood Count 5.7 x10^3/uL (4.0-11.0) 5.6 x10^3/uL (4.0-11.0) Red Blood Count 4.14 x10^6/uL (3.50-5.40) 3.83 x10^6/uL (3.50-5.40) Hemoglobin 12.6 g/dL (12.0-15.5) 11.7 g/dL (12.0-15.5) Hematocrit 37.6 % (36.0-47.0) 35.4 % (36.0-47.0) Mean Corpuscular Volume 91 fL (79-100) 92 fL (79-100) Mean Corpuscular Hemoglobin 30 pg (25-35) 31 pg (25-35) Mean Corpuscular Hemoglobin Concent 34 g/dL (31-37) 33 g/dL (31-37) Red Cell Distribution Width 13.5 % (11.5-14.5) 13.8 % (11.5-14.5) Platelet Count 220 x10^3/uL (140-400) 201 x10^3/uL (140-400) Neutrophils (%) (Auto) 83 % (31-73) 73 % (31-73) Lymphocytes (%) (Auto) 9 % (24-48) 16 % (24-48) Monocytes (%) (Auto) 6 % (0-9) 8 % (0-9) Eosinophils (%) (Auto) 2 % (0-3) 3 % (0-3) Basophils (%) (Auto) 0 % (0-3) 0 % (0-3) Neutrophils # (Auto) 4.7 x10^3uL (1.8-7.7) 4.1 x10^3uL (1.8-7.7) Lymphocytes # (Auto) 0.5 x10^3/uL (1.0-4.8) 0.9 x10^3/uL (1.0-4.8) Monocytes # (Auto) 0.3 x10^3/uL (0.0-1.1) 0.4 x10^3/uL (0.0-1.1) Eosinophils # (Auto) 0.1 x10^3/uL (0.0-0.7) 0.2 x10^3/uL (0.0-0.7) Basophils # (Auto) 0.0 x10^3/uL (0.0-0.2) 0.0 x10^3/uL (0.0-0.2) Sodium Level 136 mmol/L (136-145) Potassium Level 3.4 mmol/L (3.5-5.1) Chloride Level 100 mmol/L (98-107) Carbon Dioxide Level 26 mmol/L (21-32) Anion Gap 10 (6-14) Blood Urea Nitrogen 9 mg/dL (7-20) Creatinine 0.6 mg/dL (0.6-1.0) Estimated GFR (Cockcroft-Gault) 101.6 Glucose Level 150 mg/dL (70-99) Calcium Level 8.4 mg/dL (8.5-10.1) Laboratory Tests Test 11/30/18 09:10 White Blood Count 5.6 x10^3/uL (4.0-11.0) Red Blood Count 3.83 x10^6/uL (3.50-5.40) Hemoglobin 11.7 g/dL (12.0-15.5) Hematocrit 35.4 % (36.0-47.0) Mean Corpuscular Volume 92 fL (79-100) Mean Corpuscular Hemoglobin 31 pg (25-35) Mean Corpuscular Hemoglobin Concent 33 g/dL (31-37) Red Cell Distribution Width 13.8 % (11.5-14.5) Platelet Count 201 x10^3/uL (140-400) Neutrophils (%) (Auto) 73 % (31-73) Lymphocytes (%) (Auto) 16 % (24-48) Monocytes (%) (Auto) 8 % (0-9) Eosinophils (%) (Auto) 3 % (0-3) Basophils (%) (Auto) 0 % (0-3) Neutrophils # (Auto) 4.1 x10^3uL (1.8-7.7) Lymphocytes # (Auto) 0.9 x10^3/uL (1.0-4.8) Monocytes # (Auto) 0.4 x10^3/uL (0.0-1.1) Eosinophils # (Auto) 0.2 x10^3/uL (0.0-0.7) Basophils # (Auto) 0.0 x10^3/uL (0.0-0.2) Medications Current Medications Hydromorphone HCl (Dilaudid) 0.5 mg PRN Q15MIN PRN IV/SQ PAIN GREATER THAN 3/ 10 Last administered on 11/25/18at 20:37; Start 11/25/18 at 20:30; Stop 11/26/18 at 20:29; Status DC Sodium Chloride 1,000 ml @ 100 mls/hr Q10H IV Last administered on 11/25/18at 20:35; Start 11/25/18 at 20:21; Stop 11/26/18 at 06:20; Status DC Ondansetron HCl (Zofran) 4 mg 1X ONCE IV Last administered on 11/25/18at 20:36 ; Start 11/25/18 at 20:30; Stop 11/25/18 at 20:31; Status DC Piperacillin Sod/ Tazobactam Sod 4.5 gm/Sodium Chloride 100 ml @ 200 mls/hr 1X ONCE IV Last administered on 11/25/18at 20:55; Start 11/25/18 at 20:30; Stop 11/25/18 at 20:59; Status DC Hydromorphone HCl (Dilaudid) 0.5 mg 1X ONCE IV ; Start 11/25/18 at 22:30; Stop 11/26/18 at 01:32; Status DC Fentanyl Citrate (Fentanyl 2ml Vial) 50 mcg PRN Q2HRS PRN IV MODERATE PAIN Last administered on 11/26/18at 20:29; Start 11/26/18 at 01:45 Ondansetron HCl (Zofran) 4 mg PRN Q6HRS PRN IV NAUSEA/VOMITING 1ST CHOICE Last administered on 11/29/18at 14:25; Start 11/26/18 at 02:00 Piperacillin Sod/ Tazobactam Sod 3.375 gm/Sodium Chloride 50 ml @ 100 mls/hr Q6HRS IV Last administered on 11/30/18at 05:09; Start 11/26/18 at 00:00 Sodium Chloride 1,000 ml @ 100 mls/hr Q10H IV Last administered on 11/30/18at 08:43; Start 11/26/18 at 00:00 Ondansetron HCl (Zofran) 4 mg PRN Q6HRS PRN IV NAUSEA/VOMITING; Start 11/26/18 at 06:45; Stop 11/27/18 at 05:03; Status DC Fentanyl Citrate (Fentanyl 2ml Vial) 25 mcg PRN Q5MIN PRN IV MILD PAIN; Start 11/26/18 at 06:45; Stop 11/27/18 at 05:03; Status DC Fentanyl Citrate (Fentanyl 2ml Vial) 50 mcg PRN Q5MIN PRN IV MODERATE TO SEVERE PAIN Last administered on 11/26/18at 10:15; Start 11/26/18 at 06:45; Stop 11/27/18 at 05:03; Status DC Morphine Sulfate (Morphine Sulfate) 1 mg PRN Q10MIN PRN IV SEVERE PAIN; Start 11/26/18 at 06:45; Stop 11/27/18 at 05:03; Status DC Ringer's Solution 1,000 ml @ 30 mls/hr Q24H IV ; Start 11/26/18 at 06:36; Stop 11/26/18 at 18:35; Status DC Lidocaine HCl (Xylocaine-Mpf 1% 2ml Vial) 2 ml 1X PRN PRN ID IV START; Start at 06:45; Stop 11/27/18 at 05:03; Status DC Hydromorphone HCl (Dilaudid) 0.5 mg PRN Q10MIN PRN IV SEV PAIN, Second choice; Start 11/26/18 at 06:45; Stop 11/27/18 at 05:03; Status DC Prochlorperazine Edisylate (Compazine) 5 mg PACU PRN PRN IV NAUSEA, MRX1; Start 11/26/18 at 06:45; Stop 11/27/18 at 05:03; Status DC Propofol 20 ml @ As Directed STK-MED ONCE IV ; Start 11/26/18 at 07:04; Stop at 07:05; Status DC Lidocaine HCl (Lidocaine Pf 2% Vial) 5 ml STK-MED ONCE .ROUTE ; Start 11/26/18 at 07:04; Stop 11/26/18 at 07:05; Status DC Succinylcholine Chloride (Anectine) 200 mg STK-MED ONCE .ROUTE ; Start 11/26/18 at 07:04; Stop 11/26/18 at 07:05; Status DC Rocuronium [place] (Zemuron) 50 mg STK-MED ONCE .ROUTE ; Start 11/26/18 at 07:04 ; Stop 11/26/18 at 07:05; Status DC Fentanyl Citrate (Fentanyl 2ml Vial) 100 mcg STK-MED ONCE .ROUTE ; Start at 07:05; Stop 11/26/18 at 07:06; Status DC Bupivacaine HCl/ Epinephrine Bitart (Sensorcain-Mpf Epi 0.5%-[id number]) 30 ml STK -MED ONCE .ROUTE Last administered on 11/26/18at 07:57; Start 11/26/18 at 06:26 ; Stop 11/26/18 at 07:26; Status DC Dexamethasone Sodium Phosphate (Decadron) 20 mg STK-MED ONCE .ROUTE ; Start at 07:41; Stop 11/26/18 at 07:42; Status DC Ondansetron HCl (Zofran) 4 mg STK-MED ONCE .ROUTE ; Start 11/26/18 at 07:41; Stop 11/26/18 at 07:42; Status DC Desflurane (Suprane) 30 ml STK-MED ONCE IH ; Start 11/26/18 at 07:41; Stop 11/26 at 07:42; Status DC Neostigmine Methylsulfate (Neostigmine Methylsulfate) 5 mg STK-MED ONCE .ROUTE ; Start 11/26/18 at 07:51; Stop 11/26/18 at 07:52; Status DC Glycopyrrolate (Robinul) 1 mg STK-MED ONCE .ROUTE ; Start 11/26/18 at 07:51; Stop 11/26/18 at 07:52; Status DC Ketorolac Tromethamine (Toradol For Or Only) 30 mg STK-MED ONCE INJ ; Start at 08:49; Stop 11/26/18 at 08:50; Status DC Oxycodone/ Acetaminophen (Percocet 5/325) 1 tab PRN Q4HRS PRN PO MODERATE PAIN Last administered on 11/29/18at 09:11; Start 11/26/18 at 09:30 Oxycodone/ Acetaminophen (Percocet 5/325) 2 tab PRN Q4HRS PRN PO SEVERE PAIN Last administered on 11/27/18at 19:41; Start 11/26/18 at 09:45 Fentanyl Citrate (Fentanyl 2ml Vial) 100 mcg STK-MED ONCE .ROUTE ; Start at 09:37; Stop 11/26/18 at 09:38; Status DC Atenolol (Tenormin) 50 mg DAILY PO Last administered on 11/26/18at 16:58; Start 11/26/18 at 17:00; Stop 11/27/18 at 09:04; Status DC Hydromorphone HCl (Dilaudid) 1 mg PRN Q3HRS PRN IV SEVERE PAIN Last administered on 11/29/18at 23:14; Start 11/26/18 at 20:45 Atenolol (Tenormin) 50 mg QHS PO ; Start 11/27/18 at 21:00; Stop 11/27/18 at 21: 00; Status DC Prochlorperazine Maleate (Compazine) 5 mg PRN Q6HRS PRN PO NAUSEA/VOMITING Last administered on 11/29/18at 15:33; Start 11/27/18 at 10:45 Docusate Sodium (Colace) 100 mg BID PO Last administered on 11/30/18 08:33; Start 11/27/18 at 11:00 Hydralazine HCl (Apresoline Inj) 10 mg PRN Q4HRS PRN IVP ELEVATED BP, SEE COMMENTS Last administered on 11/28/18at 22:10; Start 11/27/18 at 12:15 Polyethylene Glycol (miraLAX PACKET) 17 gm DAILY PO Last administered on 10:08; Start 11/28/18 at 09:15; Stop 11/28/18 at 12:24; Status DC Magnesium Citrate (Citroma) 296 ml 1X ONCE PO Last administered on 11/28/18 10:08; Start 11/28/18 at 09:15; Stop 11/28/18 at 12:24; Status DC Acetaminophen (Tylenol) 650 mg PRN Q6HRS PRN PO Temp Last administered on 08:42; Start 11/28/18 at 11:30 Lactobacillus Rhamnosus (Culturelle) 1 cap BID PO Last administered on 08:33; Start 11/28/18 at 21:00 Simethicone (Gas-X) 80 mg PRN AFTMEALHC PRN PO GAS / BLOATING; Start 11/28/18 at 14:15 Polyethylene Glycol (miraLAX PACKET) 17 gm DAILY PO ; Start 11/29/18 at 09:00; Stop 11/29/18 at 09:03; Status DC Potassium Chloride (Klor-Con) 40 meq 1X ONCE PO Last administered on at 11:12; Start 11/29/18 at 11:00; Stop 11/29/18 at 11:01; Status DC Lisinopril (Prinivil) 10 mg DAILY PO Last administered on 11/30/18 08:34; Start 11/29/18 at 14:00 Active Scripts Active Reported Atenolol 50 Mg Tablet 1 Tab PO DAILY Vitals/I & O Vital Sign - Last 24 Hours 11/29/18 11/29/18 11/29/18 11/29/18 14:25 14:55 19:00 20:00 Temp 98.6 100.5 98.6 100.5 Pulse 96 97 95 Resp 20 18 B/P (MAP) 165/88 172/77 (108) 149/80 (103) Pulse Ox 96 97 O2 Delivery Room Air Room Air Room Air 11/29/18 11/29/18 11/29/18 11/29/18 23:01 23:14 23:15 23:44 Temp 97.9 97.9 Pulse 74 Resp 17 B/P (MAP) 181/83 (115) 176/84 (114) Pulse Ox 95 O2 Delivery Room Air Room Air Room Air 11/30/18 11/30/18 11/30/18 11/30/18 02:48 07:41 08:01 08:34 Temp 98.6 98.2 98.6 98.2 Pulse 88 Resp 17 16 B/P (MAP) 136/71 (92) 149/79 (102) 149/79 Pulse Ox 95 95 O2 Delivery Room Air Room Air Room Air Intake and Output 11/29/18 11/29/18 11/30/18 14:59 22:59 06:59 Intake Total 1050 ml 1090 ml 350 ml Output Total 70 ml 480 ml Balance 1050 ml 1020 ml -130 ml BRUCE KWOK MD Nov 30, 2018 11:49
[2018-11-30 11:57] VITALS: BP 178/84
[2018-11-30] MEDS ORDERED: LISI10TA2 PO (12:28)
[2018-11-30] MEDS ORDERED: AMOX1TAB61 PO (12:28)
--- NOTE | 2018-11-30 12:42 | PDOC3 ---
Discharge Summary Visit Information Date of Admission: Nov 25, 2018 Date of Discharge: Nov 30, 2018 Admitting Diagnosis: Acute appendicitis Final Diagnosis Problems Medical Problems: (1) Acute appendicitis Status: Acute Brief Hospital Course Allergies Allergies Coded Allergies Type Severity Reaction Last Updated Verified acyclovir Allergy Intermediate Swelling 07/25/17 Yes sulfamethoxazole Allergy Intermediate 07/25/17 Yes trimethoprim Allergy Intermediate 07/25/17 Yes Vital Signs Vital Signs Date Time Temp Pulse Resp B/P (MAP) Pulse Ox O2 Delivery O2 Flow Rate FiO2 11/30/18 11:57 97.9 91 20 178/84 (115) 96 Room Air 97.9 11/29/18 11:30 3.0 Lab Results Laboratory Tests Test 11/29/18 09:40 11/30/18 09:10 White Blood Count 5.7 x10^3/uL (4.0-11.0) 5.6 x10^3/uL (4.0-11.0) Red Blood Count 4.14 x10^6/uL (3.50-5.40) 3.83 x10^6/uL (3.50-5.40) Hemoglobin 12.6 g/dL (12.0-15.5) 11.7 g/dL (12.0-15.5) Hematocrit 37.6 % (36.0-47.0) 35.4 % (36.0-47.0) Mean Corpuscular Volume 91 fL (79-100) 92 fL (79-100) Mean Corpuscular Hemoglobin 30 pg (25-35) 31 pg (25-35) Mean Corpuscular Hemoglobin Concent 34 g/dL (31-37) 33 g/dL (31-37) Red Cell Distribution Width 13.5 % (11.5-14.5) 13.8 % (11.5-14.5) Platelet Count 220 x10^3/uL (140-400) 201 x10^3/uL (140-400) Neutrophils (%) (Auto) 83 % (31-73) 73 % (31-73) Lymphocytes (%) (Auto) 9 % (24-48) 16 % (24-48) Monocytes (%) (Auto) 6 % (0-9) 8 % (0-9) Eosinophils (%) (Auto) 2 % (0-3) 3 % (0-3) Basophils (%) (Auto) 0 % (0-3) 0 % (0-3) Neutrophils # (Auto) 4.7 x10^3uL (1.8-7.7) 4.1 x10^3uL (1.8-7.7) Lymphocytes # (Auto) 0.5 x10^3/uL (1.0-4.8) 0.9 x10^3/uL (1.0-4.8) Monocytes # (Auto) 0.3 x10^3/uL (0.0-1.1) 0.4 x10^3/uL (0.0-1.1) Eosinophils # (Auto) 0.1 x10^3/uL (0.0-0.7) 0.2 x10^3/uL (0.0-0.7) Basophils # (Auto) 0.0 x10^3/uL (0.0-0.2) 0.0 x10^3/uL (0.0-0.2) Sodium Level 136 mmol/L (136-145) Potassium Level 3.4 mmol/L (3.5-5.1) Chloride Level 100 mmol/L (98-107) Carbon Dioxide Level 26 mmol/L (21-32) Anion Gap 10 (6-14) Blood Urea Nitrogen 9 mg/dL (7-20) Creatinine 0.6 mg/dL (0.6-1.0) Estimated GFR (Cockcroft-Gault) 101.6 Glucose Level 150 mg/dL (70-99) Calcium Level 8.4 mg/dL (8.5-10.1) Laboratory Tests Test 11/30/18 09:10 White Blood Count 5.6 x10^3/uL (4.0-11.0) Red Blood Count 3.83 x10^6/uL (3.50-5.40) Hemoglobin 11.7 g/dL (12.0-15.5) Hematocrit 35.4 % (36.0-47.0) Mean Corpuscular Volume 92 fL (79-100) Mean Corpuscular Hemoglobin 31 pg (25-35) Mean Corpuscular Hemoglobin Concent 33 g/dL (31-37) Red Cell Distribution Width 13.8 % (11.5-14.5) Platelet Count 201 x10^3/uL (140-400) Neutrophils (%) (Auto) 73 % (31-73) Lymphocytes (%) (Auto) 16 % (24-48) Monocytes (%) (Auto) 8 % (0-9) Eosinophils (%) (Auto) 3 % (0-3) Basophils (%) (Auto) 0 % (0-3) Neutrophils # (Auto) 4.1 x10^3uL (1.8-7.7) Lymphocytes # (Auto) 0.9 x10^3/uL (1.0-4.8) Monocytes # (Auto) 0.4 x10^3/uL (0.0-1.1) Eosinophils # (Auto) 0.2 x10^3/uL (0.0-0.7) Basophils # (Auto) 0.0 x10^3/uL (0.0-0.2) Brief Hospital Course 63-year-old female who presents with complaint of acute abdominal pain that started this past Sunday evening and has intensified since. Patient states that initially she thought she was constipated. She states that she had taken a Dulcolax without any improvement. She states that Sunday symptoms had worsened and again Sunday even worse. She was seen by her primary care doctor today who had ordered an outpatient CT scan and patient presents with imaging report from diagnostic radiology demonstrating a dilated appendix consistent with appendicitis. S/p appendectomy 11/27 with signs of near perforation, drain left in, draining serosanguineous material. Had BM this morning. Passing flatus, pain reasonably controlled. Seen by general surgery, ok for d/c with drain in place on 5 days of augmentin Plan: Cont zosyn, will need 5-7 days augmentin on d/c when ok with surgery. Monitor drain output Ambulation IS bedside General: Alert, Oriented X3, Cooperative, No acute distress Heart: Regular rate (SB), Normal S1, Normal S2, No murmurs Lungs: Clear Abdomen: Soft, Other (drain cloudy, milkly purulent in color ) Extremities: No cyanosis, No edema Skin: No breakdown, No significant lesion Greater than 30 minutes spent on discharge. Discharge Information Condition at Discharge: Improved Follow Up: Weeks Disposition/Orders: D/C to Home Scheduled Amoxicillin/Potassium Clav (Augmentin 875-125 Tablet) 1 Each Tablet, 1 TAB PO BID for Perforated appy for 5 Days, #10 Prescribed by: FITO SANDERS MD on 11/30/18 1228 Atenolol (Atenolol) 50 Mg Tablet, 1 TAB PO DAILY for htn, #30 Ref 5 (Reported) Entered as Reported by: MARCO GRAFF on 11/26/181528 Last Action: Continued on 11/26/18 1640 by MARCO GRAFF Lisinopril (Lisinopril) 10 Mg Tablet, 10 MG PO DAILY for HTN for 30 Days, #30 Ref 2 Prescribed by: FITO SANDERS MD on 11/30/18 122 Discontinued Medications Atenolol (Atenolol) 50 Mg Tablet, 1 TAB PO DAILYWSUP PRN for HYPERTENSION, SEE COMMENTS, #30 Ref 5 (Reported) Entered as Reported by: MARCO GRAFF on 11/26/181528 Last Action: Discontinued on 11/26/181528 by FITO BARNETT MD Nov 30, 2018 12:42
--- NOTE | 2018-11-30 14:06 | NUR ---
Pt discharged to home. All discharge orders, medications, scripts reviewed with pt. Pt sent home with DENY drain, education given on how to care for, denies further questions and needs after education. Pt discharged with event heart monitor in place. Pt denies further needs. Assisted to car via wheelchair with staff.
== END 2018-11-30 15:36 | disposition home or self-care (01) | DRG 339 ==
LOC: ER 18:23 → 6 SOUTH 21:36 → 2 NORTH 11-27 14:05
PROVIDERS: ADMIT Internal Medicine; ATTEND Internal Medicine
PROC: 0DTJ4ZZ Resection of Appendix, Percutaneous Endoscopic Approach (ICD-10-PCS; principal; 2018-11-26 07:30)
DX: K35.32 Acute appendicitis with perforation, localized peritonitis, and gangrene, without abscess (principal); Z68.41 Body mass index [BMI] 40.0-44.9, adult; E66.01 Morbid (severe) obesity due to excess calories; I10 Essential (primary) hypertension; I44.1 Atrioventricular block, second degree; K57.90 Diverticulosis of intestine, part unspecified, without perforation or abscess without bleeding; M19.90 Unspecified osteoarthritis, unspecified site; F17.210 Nicotine dependence, cigarettes, uncomplicated; Z88.2 Allergy status to sulfonamides; Z82.49 Family history of ischemic heart disease and other diseases of the circulatory system; Z88.8 Allergy status to other drugs, medicaments and biological substances
CPT/HCPCS: 36415; 80048; 80053; 81001; 83690; 83735; 84443; 85007; 85025; 88304; 93005; 93306; A7015; J0330; J0360; J1100; J1170; J1885; J2001; J2405; J2543; J2704; J2710; J3010; J3490; J7030; J7120; Q0164; 99285-25

== ENCOUNTER → 2019-07-24 | Outpatient (CLI) | payer OTHER ==
[~2019-07-24] MED LIST changes: +AMOX1TAB61 PO; +ATEN50TA PO; -IBUP-1227 PO; +IBUP-1670 PO; -LINE600T PO; +LINE600T12 PO; +LISI10TA2 PO
--- NOTE | 2019-07-24 17:08 | KCIC ---
Bilateral digital screening mammograms with 3-D tomosynthesis: Reason for examination: Routine screening. Comparison is made to previous studies dated 06/25/2018 and 07/23/2017. Bilateral mammograms in CC and oblique projections were obtained with 2-D imaging and 3-D tomosynthesis imaging on a Siemens Inspiration unit and reviewed on the workstation. Interpretation was made with the benefit of CAD. The skin and nipples show no abnormalities. No abnormal axillary lymph nodes are seen. The breast parenchyma is extremely dense. (Breast density: Category D.) There are no dominant masses, suspicious calcifications or architectural distortion. Benign calcifications are present. Impression: No evidence of malignancy. Recommend routine screening. Your patient's mammogram demonstrates that she has dense breast tissue (breast density category C or D), which could hide abnormalities, and if she has other risk factors for breast cancer that have been identified, she might benefit from supplemental screening tests that may be suggested by you as her ordering physician. Dense breast tissue, in and of itself, is a relatively common condition. Therefore, this information is not provided to cause undue concern, but rather to raise your awareness and to promote discussion with your patient regarding the presence of other risk factors, in addition to dense breast tissue. Your patient's mammography results will be sent to her. BI-RAD Category 2: Benign. "Our facility is accredited by the [employer] Mammography Program." This patient's information has been entered into a reminder system for the patient to be notified with the results of her examination and a target date for the next mammogram. Electronically signed by: Hanna Alvarado MD (07/24/2019 5:05 PM) [id number]
== END | disposition home or self-care (01) ==
LOC: KCIC MAMMO 13:48
PROVIDERS: ATTEND Family Medicine
DX: Z12.31 Encounter for screening mammogram for malignant neoplasm of breast (principal); N64.89 Other specified disorders of breast
CPT/HCPCS: 77063; 77067

== ENCOUNTER → 2019-11-10 | Outpatient (CLI) | payer OTHER ==
--- NOTE | 2019-11-10 13:56 | KCIC ---
Examination: MRI of the thumb without contrast HISTORY: History of right hand osteomyelitis, redness. COMPARISON: 07/17/2017 TECHNIQUE: Multiplanar, multisequence MR imaging of the right thumb performed without contrast. FINDINGS: The alignment of the first metacarpophalangeal joint, interphalangeal joint grossly appears unremarkable. There is mild decreased T1 signal identified in the distal aspect of the distal phalanx of the thumb with corresponding increased T2 signal. There is increased T2 signal and fluid identified in the flexor pollicis tendon sheath of the thumb extending proximally up to the level of the palm and distally to its attachment to the distal phalanx.. IMPRESSION: 1. Flexor pollicis tenosynovitis. 2. Mild decreased T1 signal identified in the distal aspect of the distal phalanx with, with corresponding increased T2 signal, question osteomyelitis. Electronically signed by: Baljinder Friend MD (11/10/2019 1:53 PM) [id number]
== END | disposition home or self-care (01) ==
LOC: KCIC MRI 11:57
PROVIDERS: ATTEND Orthopaedic Surgery Sports Medicine
DX: M65.841 Other synovitis and tenosynovitis, right hand (principal)
CPT/HCPCS: 73218

== ENCOUNTER → 2020-07-29 | Outpatient (CLI) | payer OTHER ==
[~2020-07-29] MED LIST changes: -ISAV186C PO; +ISAV186C2 PO
--- NOTE | 2020-08-02 10:24 | KCIC ---
Bilateral digital screening mammograms with 3-D tomosynthesis: Reason for examination: Routine screening. Comparison is made to previous studies dated back to 07/20/2016. Bilateral mammograms in CC and oblique projections were obtained with 2-D imaging and 3-D tomosynthes is imaging on a Siemens Inspiration unit and reviewed on the workstation. The skin and nipples show no abnormalities. No abnormal axillary lymph nodes are seen. The breast par enchyma is extremely dense. (Breast density: Category D.) There appears to be a small circumscribed n odule posterior laterally in the right breast on cc view which is probably at the 9:00 B position 11 cm from the nipple and measuring approximately 8.4 mm in size. This could represent a small cyst. The re are no other dominant masses, suspicious calcifications or architectural distortion. Impression: Small 8.4 mm circumscribed nodule in the right breast laterally seen on cc view probably located arou nd the 9:00 B position 11 cm from the nipple. Recommend further evaluation with ultrasound. Your patient's mammogram demonstrates that she has dense breast tissue (breast density category C or D), which could hide abnormalities, and if she has other risk factors for breast cancer that have bee n identified, she might benefit from supplemental screening tests that may be suggested by you as her ordering physician. Dense breast tissue, in and of itself, is a relatively common condition. Therefo re, this information is not provided to cause undue concern, but rather to raise your awareness and t o promote discussion with your patient regarding the presence of other risk factors, in addition to d ense breast tissue. Your patient's mammography results will be sent to her. BI-RAD Category 0: Incomplete. Needs additional imaging evaluation. "Our facility is accredited by the [employer] Mammography Program." This patient's information has been entered into a reminder system for the patient to be notified wit h the results of her examination and a target date for the next mammogram. Electronically signed by: Hanna Alvarado MD (08/02/2020 10:21 AM) [id number]
== END ==
LOC: KCIC MAMMO 12:26
PROVIDERS: ATTEND Nurse Practitioner Family
DX: Z12.31 Encounter for screening mammogram for malignant neoplasm of breast (principal); N63.15 Unspecified lump in the right breast, overlapping quadrants
CPT/HCPCS: 77063; 77067

== ENCOUNTER → 2020-08-11 | Outpatient (CLI) | payer OTHER ==
--- NOTE | 2020-08-11 12:36 | RAD ---
Examination: Limited right breast ultrasound. INDICATION: 65-year-old woman recalled from screening for nodularity in the upper outer right breast. COMPARISON: Mammograms of 07/29/2020, 06/25/2018 and 10/14/2004 TECHNIQUE: Grayscale ultrasound imaging of the upper outer quadrant right breast was performed and in cluded sonographic survey of the right axilla. FINDINGS: Sonographic survey of the upper-outer quadrant right breast revealed no suspicious sonographic findin gs or dominant mass. No axillary adenopathy on sonographic survey of the right axilla. IMPRESSION: Negative right targeted breast ultrasound. No evidence of malignancy. BI-RADS Category 1 Negative Recommend return to routine screening next due in one year. Discussed with patient. I also encouraged her to maintain self breast awareness and promptly report any new or changing clinical symptoms to h er referring physician. Patient entered into a reminder system with targeted due date for next mammogram Electronically signed by: Dorita Roman MD (08/11/2020 12:33 PM) [id number]
== END ==
LOC: US 10:26
PROVIDERS: ATTEND Family Medicine
DX: R92.2 Inconclusive mammogram (principal)
CPT/HCPCS: 76641

== ENCOUNTER → 2020-08-20 | Outpatient (CLI) | payer BC ==
[~2020-08-20] VITALS: Ht 165.1 cm; Wt 113.4 kg
[~2020-08-20] MED LIST changes: -LACT1CAP29 PO; +LACT1CAP37 PO; +LISI10TA16 PO; -LISI10TA2 PO; +SINCALIDE 2.3 MCG in IV NORMAL SALINE 50ML 30 ML IV ONE
--- NOTE | 2020-08-20 10:24 | RAD ---
EXAM: Nuclear hepatobiliary scan. HISTORY: Left lower quadrant pain. TECHNIQUE: Following intravenous administration of 5.5 mCi Tc 99m Choletec, anterior images of the ab domen were obtained at five minute intervals through one hour. Subsequently, 2.3 mcg CCK was administ ered and additional images to assess gallbladder ejection fraction were obtained. FINDINGS: There is prompt radiotracer uptake by the liver. No focal defect is seen. There is normal e xcretion into the biliary tree. The gallbladder is visualized within 15 minutes and there is free sreedhar w into the duodenum. The gallbladder ejection fraction is 71 percent. IMPRESSION: Normal radionuclide biliary scan. Electronically signed by: Zofia Hudson MD (08/20/2020 10:21 AM) [id number]
== END ==
LOC: NM 07:38
PROVIDERS: ATTEND Internal Medicine Gastroenterology
DX: R10.30 Lower abdominal pain, unspecified (principal)
CPT/HCPCS: 78227; A9537; J2805

== ENCOUNTER → 2021-06-01 | Outpatient (CLI) | payer BC ==
[~2021-06-01] MED LIST changes: -SINCALIDE 2.3 MCG in IV NORMAL SALINE 50ML 30 ML IV ONE
--- NOTE | 2021-06-01 11:12 | CARD ---
MR#: [id number] Date of Study: 06/01/2021 Ordering Physician: MIGEL WALKER, Referring Physician: MIGEL WALKER, Tech: Violeta Sy [facility] APPROVED REPORT EXAM: Two-dimensional and M-mode echocardiogram with Doppler and color Doppler. Other Information Quality : AverageHR: 77bpm INDICATION Arrhythmia RISK FACTORS Hypertension Hyperlipidemia Smoking 2D DIMENSIONS RVDd3.6 (2.9-3.5cm)Left Atrium(2D)3.2 (1.6-4.0cm) IVSd1.1 (0.7-1.1cm)Aortic Root(2D)3.1 (2.0-3.7cm) LVDd5.3 (3.9-5.9cm)LVOT Diameter2.0 (1.8-2.4cm) PWd1.0 (0.7-1.1cm)LVDs3.7 (2.5-4.0cm) FS (%) 30.4 %SV76.6 ml Aortic Valve AoV Peak Kin.139.7cm/sAoV VTI28.3cm AO Peak GR.7.8mmHgLVOT Peak Kin.120.4cm/s AO Mean GR.4mmHgAVA (VMAX)2.73cm2 Mitral Valve MV E Glsehtdt67.0cm/sMV E Peak Gr.4mmHg MV DECEL [id number] A Zpabewdt51.0cm/s MV E Mean Gr.2mmHgE/A Ratio1.0 Pulmonary Valve PV Peak Dvfbbkag93.9cm/s Tricuspid Valve TR P. [id number]/sRAP [id number] TR Peak Gr.61fpOhHYFQ88irCu Pulmonary Vein S1 Pcylktxz66.3cm/sD2 Vsftetwb70.3cm/s PVa [id number] LEFT VENTRICLE The Left Ventricle is borderline dilated. There is borderline concentric left ventricular hypertrophy . The left ventricular systolic function is normal and the ejection fraction is within normal range. The Ejection Fraction is 50-55% Septal motion consistent with a possible conduction abnormality. Shelby smitral Doppler flow pattern is Grade II-pseudonormal filling dynamics. RIGHT VENTRICLE The right ventricle is borderline dilated. There is normal right ventricular wall thickness. The righ t ventricular systolic function is normal. ATRIA The left atrium size is normal. The right atrium size is normal. The interatrial septum is intact wit h no evidence for an atrial septal defect or patent foramen ovale as noted on 2-D or Doppler imaging. AORTIC VALVE The aortic valve is thickened but opens well. Doppler and Color Flow revealed no significant aortic r egurgitation. There is no significant aortic valvular stenosis. Calculated aortic valve area is 2.7 c m2 with maximum pressure gradient of 8 mmHg and mean pressure gradient of 4 mmHg. MITRAL VALVE The mitral valve is normal in structure and function. There is no evidence of mitral valve prolapse. There is no mitral valve stenosis. Doppler and Color-flow revealed trace mitral regurgitation. TRICUSPID VALVE The tricuspid valve is normal in structure and function. Doppler and Color Flow revealed trace tricus pid regurgitation with an estimated PAP of 32 mmHg. There is no tricuspid valve stenosis. PULMONIC VALVE The pulmonary valve is normal in structure and function. Doppler and Color Flow revealed trace pulmon ic valvular regurgitation. GREAT VESSELS The aortic root is normal in size. The ascending aorta is normal in size. The IVC is normal in size a nd collapses >50% with inspiration. PERICARDIAL EFFUSION There is no evidence of significant pericardial effusion. Critical Notification Critical Value: No <Conclusion> The Left Ventricle is borderline dilated. The left ventricular systolic function is normal and the ejection fraction is within normal range. The Ejection Fraction is 50-55% There is borderline concentric left ventricular hypertrophy. Doppler and Color Flow revealed no significant aortic regurgitation. There is no significant aortic valvular stenosis. Doppler and Color-flow revealed trace mitral regurgitation. Doppler and Color Flow revealed trace tricuspid regurgitation with an estimated PAP of 32 mmHg. Signed by : Cash Salas MD Electronically Approved : 06/01/2021 11:12:33
== END ==
LOC: ECHO 08:50
PROVIDERS: ATTEND Internal Medicine Cardiovascular Disease
DX: I51.7 Cardiomegaly (principal); I49.9 Cardiac arrhythmia, unspecified
CPT/HCPCS: 93306

== ENCOUNTER → 2021-09-21 | Outpatient (CLI) | payer BC ==
--- NOTE | 2021-09-21 11:49 | KCIC ---
Bilateral digital screening mammograms with 3-D tomosynthesis: Reason for examination: Routine screening. Comparison is made to previous studies dated back to 07/20/2016. Bilateral mammograms in CC and oblique projections were obtained with 2-D imaging and 3-D tomosynthes is imaging on a Siemens Inspiration unit and reviewed on the workstation. Interpretation was made wit h the benefit of CAD. The skin and nipples show no abnormalities. No abnormal axillary lymph nodes are seen. The breast par enchyma is heterogeneously dense. (Breast density: Category C.) There continues to be nodularity to t he parenchyma bilaterally which is stable. There are no new dominant masses, suspicious calcification s or architectural distortion. Benign calcifications are present. Impression: No evidence of malignancy. Recommend routine screening. Your patient's mammogram demonstrates that she has dense breast tissue (breast density category C or D), which could hide abnormalities, and if she has other risk factors for breast cancer that have bee n identified, she might benefit from supplemental screening tests that may be suggested by you as her ordering physician. Dense breast tissue, in and of itself, is a relatively common condition. Therefo re, this information is not provided to cause undue concern, but rather to raise your awareness and t o promote discussion with your patient regarding the presence of other risk factors, in addition to d ense breast tissue. Your patient's mammography results will be sent to her. BI-RAD Category 2: Benign. "Our facility is accredited by the [employer] Mammography Program." This patient's information has been entered into a reminder system for the patient to be notified wit h the results of her examination and a target date for the next mammogram. Electronically signed by: Hanna Alvarado MD (09/21/2021 11:47 AM) [id number]
== END ==
LOC: KCIC MAMMO 10:00
PROVIDERS: ATTEND Family Medicine
DX: Z12.31 Encounter for screening mammogram for malignant neoplasm of breast (principal)
CPT/HCPCS: 77063; 77067